=== PATIENT | male | born 1955 | race Caucasian/White ===

== ENCOUNTER 2025-01-01 12:38 | Outpatient (CLI) | payer OTHER, SELFPAY | END 2025-01-01 12:39 | disposition home or self-care (01) | LOC: AMB 01-03 13:25 | PROVIDERS: Visit Provider Internal Medicine | DX: S49.92XA Unspecified injury of left shoulder and upper arm, initial encounter (principal); V49.9XXA Car occupant (driver) (passenger) injured in unspecified traffic accident, initial encounter; Y92.410 Unspecified street and highway as the place of occurrence of the external cause | CPT/HCPCS: A0425; A0427 ==

== ENCOUNTER 2025-01-01 13:35 | Emergency (ER) | payer OTHER, SELFPAY ==
--- OUTSIDE RECORDS SUMMARY | 2024-11-16 08:08 | XMS_ITS | Encounter Summary ---
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 Name Role Phone Jadon Pelletier MD Unavailable Unavaila Armando Basurto MD Unavailable Jadon Rossi MD Unavailable Patricia Babb DIRECTOR [employer]AL[employer],[facility] Unavailable + Cornelia Torres DIRECTOR [employer]S,[facility] Primary Care Provider + Cecilia Crenshaw MD Unavailabl e Sal Rascon MD Unavailable [phone] Reason for Visit * Cardiac Rehab (Routine) - Authorized Specialty Diagnoses / Procedures Referred By Contac t Referred To Contact Cardiology Diagnoses ST elevation myocardial infarction involving left anterior descending (LAD) coronary artery (HCC) Josue Guerra MD [address] [place] [phone] Phone: tel: fax: [facility] [address] [place] [address] Phone: tel: fax: Referral ID Status Reason Start Date Expiration Date V isits Requested Visits Authorized [id number] Authorized 10/29/2024 11/28/2025 72 [id number] Encounter Details Date Type Department Care Team (Latest Contact Info) Description 11/16/2024 8:08 AM CDT - 11/16/2024 11:59 PM CDT Hospital Encounter [facility] [address] [place] [address] Josue Guerra MD [address] [place] [phone] Monitored, Cardiac Rehab Subj: Appointment Scheduled Discharge Disposition: Discharge Home Social History Tobacco Use Types Packs/Day Years Used Date Smoking Tobacco: Former Cigarettes 1 20 0 05/26/1980 - 05/26/2000 Smokeless Tobacco: Former Quit: 2003 Alcohol Use Standard Drinks/Week Comments No 0 (1 standard drink = 0.6 oz pur e alcohol) B1300 Health Literacy Answer Date Recor ded How often do you need to hav e someone help you when you read instructions, pamphlets, or other written material from your doctor or pharmacy? Never 03/17/2024 Vaxartities Answer Date Recorded In the past 12 months has e raksul, oil, or water Segment threatened to shut off services in your home? No 10/29/2024 Humiliation, Afraid, Rape, and Kick questionnair e Answer Date Recorded Within the last year, have y ou been afraid of your partner or ex-partner? No 03/17/2024 Within the last year, have y ou been humiliated or emotionally abused in other ways by your partner or ex-partner? No Within the last year, have y ou been kicked, hit, slapped, or otherwise physically hurt by your partner or ex-partner? No 03/17/2024 Within the last year, have y ou been raped or forced to have any kind of sexual activity by your partner or ex-partner? No 03/17/2024 Social Connection and Isolat ion Panel [NHANES] Answer Date Recorded In a typical week, how many times do you talk on the phone with family, friends, or neighbors? More than three times a week 03/17/2024 How often do you get togethe r with friends or relatives? More than three times a week 03/17/2024 How often do you attend chur ch or mormonism services? Never 03/17/2024 Do you belong to any clubs o r organizations such as religious groups, unions, fraternal or athletic groups, or school groups? No 03/17/2024 How often do you attend meet ings of the clubs or organizations you belong to? Never 03/17/2024 Are you , , di vorced, , never , or living with a partner? 03/17/2024 AUDIT-C Answer Date Recorded Q1: How often do you have a drink containing alcohol? Never 03/17/2024 Q2: How many drinks containi ng alcohol do you have on a typical day when you are drinking? Patient does not drink Q3: How often do you have si x or more drinks on one occasion? Never 03/17/2024 Overall Financial Resource Strain (CARDIA) Answe r Date Recorded How hard is it for you to pa y for the very basics like food, housing, medical care, and heating? Not very hard 03/17/2024 [facility] - Occupational Stress Questionnaire Answer Date Recorded Do you feel stress - tense, restless, nervous, or anxious, or unable to sleep at night because your mind is troubled all the time - these days? To some extent 03/17/2024 Exercise Vital Sign Answer Date Recorde d On average, how many days pe r week do you engage in moderate to strenuous exercise (like a brisk walk)? 1 day 03/17/2024 On average, how many minutes do you engage in exercise at this level? 30 min 03/17/2024 Hunger Vital Sign Answer Date Recorded Within the past 12 months, y ou worried that your food would run out before you got the money to buy more. Never true 10/30/19 25 Within the past 12 months, t he food you bought just didn't last and you didn't have money to get more. Never true 10/29/2024 PRAPARE - Transportation Answer Date Re corded In the past 12 months, has l ack of transportation kept you from medical appointments or from getting medications? No 12/25 In the past 12 months, has l ack of transportation kept you from meetings, work, or from getting things needed for daily living? No 01/17/2021 Housing Stability Vital Sign Answer Drake e Recorded In the last 12 months, was t here a time when you were not able to pay the mortgage or rent on time? No 10/29/2024 In the past 12 months, how m any times have you moved where you were living? 0 10/29/2024 At any time in the past 12 m [facility], were you homeless or living in a mcfp (including now)? No 10/29/2024 Housing Stability Answer Date Recorded In the last 12 months, was t here a time when you were not able to pay the mortgage or rent on time? No 10/29/2024 Number of Places Lived in the Last Year Not on f ile 10/29/2024 Number of Places Lived in the Last Year (Outpati ent) Not on file 10/29/2024 Number of Places Lived in the Last Year (Inpatie nt) Not on file 10/29/2024 Unstable Housing in the Last Year Not on file 10/29/2024 Depression (PHQ-9) Answer Date Recorded Last PHQ-9 Score 3 11/03/2024 Thoughts of self harm Not at all 11/03/2024 Pediatric Housing Stability Answer Date Recorded At any time in the past 12 m [facility], were you homeless or living in a mcfp (including now)? No 10/29/2024 In the past 12 months, how m any times have you moved where you were living? 0 10/29/2024 Housing Condition Worry Not on file 10/30/19 Intimate Partner Violence Answer Date R ecorded Are you in a relationship wh ere you are physically hurt, threatened and/or made to feel afraid? No 11/10/2024 Transportation Needs Answer Date Record ed In the past 12 months, has l ack of transportation kept you from medical appointments, meetings, work, or from getting medicines or things needed for daily living? No 10/29/2024 Caregiver Education and Work Answer Drake e Recorded High School Degree Not on file 03/17/2024 How often do you need to hav e someone help you when you read instructions, pamphlets, or other written material from your doctor or pharmacy? 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 Answer Date of Assessment Author No 10/29/2024 11:00 PM Mine Ibanez RN * Are you blind or do you have serious difficulty seeing, even when wearing glasses? Answer Date of Assessment Author No 10/29/2024 11:00 PM Mine Ibanez RN * Do you have serious difficulty walking or climbing stairs? Answer Date of Assessment Author No 10/29/2024 11:00 PM Mine Ibanez RN * Do you have difficulty dressing or bathing? Answer Date of Assessment Author No 10/29/2024 11:00 PM Mine Ibanez RN * Do you have difficulty doing errands alone such as visiting a doctor's office or shopping because of a physical, mental, or emotional condition? Answer Date of Assessment Author No 10/29/2024 11:00 PM Mine Ibanez RN documented as of this encounter Mental Status * Do you have trouble concentrating, remembering, or making decisions because of a physical, mental, or emotional condition? Answer Entry Date Author No 10/29/2024 11:00 PM Mine Ibanez RN documented in this encounter Medications at Time of Discharge aspirin (CHILDREN'S ASPIRIN) 81 mg oral Tablet, ChewableIndication s:NSTEMI (non-ST elevated myocardial infarction) (HCC) Chew and Swallow 1 Tablet (81 mg) by mouth once daily. 0 01/11/2021 atorvastatin (LIPITOR) 80 mg oral TabletIndications: ST elevation myocardial infarction involving left anterior descending (LAD) coronary artery (HCC) Take 1 Tablet (80 mg) by mouth at bedtime. 90 Tablet 3 10/31/2024 12:46 PM CDT 10/31/2024 carvediloL (COREG) 6.25 mg oral TabletIndications: ST elevation myocardial infarction involving left anterior descending (LAD) coronary artery (HCC) Take 1 Tablet (6.25 mg) by mouth in the morning and 1 Tablet (6.25 mg) in the evening. 11/16/2024 6 cetirizine (AKA: ZYRTEC) 10 mg oral Tablet Take 1 Tablet (10 mg) by mouth in the morning. cholecalciferol (VITAMIN D3) 5,000 unit oral TabletIndications: Vitamin D deficiency Take 1 Tablet (5,000 Units) by mouth in the morning. 07/23/2024 fluticasone propionate (FLOVENT HFA) 110 mcg/actuation inhalation HFA Aerosol InhalerIndications :Mild persistent asthma without complication (HCC) 2 Puffs by inhalation route in the morning and 2 Puffs in the evening. 12 g 11 11/10/2024 6 nitroglycerin (NITROSTAT) 0.4 mg sublingual Tablet, SublingualIndicati ons:NSTEMI (non-ST elevated myocardial infarction) (HCC) DISSOLVE 1 TABLET UNDER TONGUE NEEDED FOR CHEST PAIN MAY REPEAT EVERY 5 MINUTES FOR A MAXIMUM OF 3 DOSES 25 Tablet 2 07/09/2024 other (unlisted) Cellergize by Life Wave PAP MACHINEIndications :Obstructive sleep apnea syndrome,Sleep apnea, unspecified type,Daytime sleepiness Equipment Prescribed: Autopap, 5-15 cm H20. Estimated Length of Need: 99 months (99 = Lifetime). May change the size or style of mask, headgear, or spacers to help patient comfort and compliance. 1 Each 12/10/2022 PARoxetine (PAXIL) 10 mg oral TabletIndications: MARY (generalized anxiety disorder) Take 1 Tablet (10 mg) by mouth in the morning. 90 Tablet 3 03/24/2024 5 prasugreL HCl (EFFIENT) 10 mg oral TabletIndications: ST elevation myocardial infarction involving left anterior descending (LAD) coronary artery (HCC) Take 1 Tablet (10 mg) by mouth in the morning. 90 Tablet 3 10/31/2024 12:46 PM CDT 11/01/2024 6 empagliflozin (JARDIANCE) 10 mg oral TabletIndications: ST elevation myocardial infarction involving left anterior descending (LAD) coronary artery (HCC) Take 1 Tablet (10 mg) by mouth in the morning. 90 Tablet 3 11/01/2024 5 fluticasone furoate (ARNUITY ELLIPTA) 100 mcg/actuation inhalation Disk with DeviceIndications: Mild persistent asthma without complication (HCC) 1 Inhalation by inhalation route in the morning. 90 Each 09/02/2024 5 pantoprazole (PROTONIX) 40 mg oral Tablet, Delayed Release (E.C.)Indications: ST elevation myocardial infarction involving left anterior descending (LAD) coronary artery (HCC) Take 1 Tablet (40 mg) by mouth at bedtime. 60 Tablet 10/31/2024 12:46 PM CDT 10/31/2024 5 documented as of this encounter Miscellaneous Notes * Multidisciplinary Note - Enriqueta Villarreal - 11/16/2024 9:35 AM CDT Post-Session Comments:Supervising Physician: Lev Ballard MD.Per patient, no medication changes since last visit. Per patient, medications taken as prescribed. RESPONSE: Patient tolerated exercise session well with no complaints. RESPONSE: HR,BS and BP responses to exercise were appropriate. RHYTHM: Sinus rhythm with isolated PVC's, no ST changes noted. UNITS CHARGED: Exercise session - 4 (60 minutes).PRITIKIN EDUCATION: HRT Managing Heart Disease (60 minutes) UNITS CHARGED: Education - 1. documented in this encounter Plan of Treatment Upcoming Encounters Date Type Department Care Team (Late st Contact Info) Description 01/04/2025 8:30 AM CDT Appointment [facility] [address] [place], [place] [id number] Josue Guerra MD [address] [place] [address] Monitored, Cardiac Rehab Subj: Appointment Scheduled 01/04/2025 9:30 AM CDT Appointment [facility] [address] [place] [address] Josue Guerra MD [address] [place] [address] Subj: Appointment Scheduled 01/06/2025 8:30 AM CDT Appointment [facility] [address] [facility] [place] [address] Josue Guerra MD [address] [facility] [address] Monitored, Cardiac Rehab Subj: Appointment Scheduled 01/06/2025 9:30 AM CDT Appointment [facility] [address] [place] [address] Josue Guerra MD [address] [place] [address] Subj: Appointment Scheduled 01/11/2025 8:30 AM CDT Appointment [facility] [address] [place] [address] Josue Guerra MD [address] [place] [address] Monitored, Cardiac Rehab Subj: Appointment Scheduled 01/11/2025 9:30 AM CDT Appointment [facility] [address] [place] [address] Josue Guerra MD [address] [place] [address] Subj: Appointment Scheduled 01/13/2025 8:30 AM CDT Appointment [facility] [address] [facility] [place] [address] Josue Guerra MD [address] [place] [address] Monitored, Cardiac Rehab Subj: Appointment Scheduled 01/13/2025 9:30 AM CDT Appointment [facility] [address] [place] [address], [place] [address] [place] [address] [place] [address], [place] [address] Subj: Appointment Scheduled 01/18/2025 8:30 AM CDT Appointment [facility] [address] [place] [address], [place] [address] [place] [address] [place] [address], [place] [address] Monitored, Cardiac Rehab Subj: Appointment Scheduled 01/18/2025 9:30 AM CDT Appointment [facility] [address] [place] [address], [place] [address] [place] [address] [place] [address], [place] [address] Subj: Appointment Scheduled 01/20/2025 8:30 AM CDT Appointment [facility] [address] [place] [address], [place] [address] [place] [address] [place] [address], [place] [address] Monitored, Cardiac Rehab Subj: Appointment Scheduled 01/20/2025 9:30 AM CDT Appointment [facility] [address] [place] [address] Josue Guerra MD [address] [place] [address] Subj: Appointment Scheduled 01/25/2025 8:30 AM CDT Appointment [facility] [address] [place] [address], [place] [address] Josue Guerra MD [address] [place] [address] Monitored, Cardiac Rehab Subj: Appointment Scheduled 01/25/2025 9:30 AM CDT Appointment [facility] [address] [place] [address], [place] [address] Josue Guerra MD [address] [place] [address] Subj: Appointment Scheduled 01/27/2025 8:30 AM CDT Appointment [facility] [address] [place] [address], [place] [address] Josue Guerra MD [address] [place] [address] Monitored, Cardiac Rehab Subj: Appointment Scheduled 01/27/2025 9:30 AM CDT Appointment [facility] [address] [place] [address], [place] [address] Josue Guerra MD [address] [place] [address] Subj: Appointment Scheduled 02/01/2025 8:30 AM CDT Appointment [facility] [address] [facility] [place] [address] Josue Guerra MD [address] [place] [address] Monitored, Cardiac Rehab Subj: Appointment Scheduled 02/01/2025 9:30 AM CDT Appointment [facility] [address] [place] [address], [place] [address] Josue Guerra MD [address] [place] [address] Subj: Appointment Scheduled 02/03/2025 8:30 AM CDT Appointment [facility] [address] [place] [address], [place] [address] Josue Guerra MD [address] [place] [address] Monitored, Cardiac Rehab Subj: Appointment Scheduled 02/03/2025 9:30 AM CDT Appointment [facility] [address] [place] [address], [place] [address] Josue Guerra MD [address] [place] [address] Subj: Appointment Scheduled 02/08/2025 8:30 AM CDT Appointment [facility] [address] [place], [place] [address] [place] [address] Josue Guerra MD [address] [place] [address] [phone] Monitored, Cardiac Rehab Subj: Appointment Scheduled 02/08/2025 9:30 AM CDT Appointment [facility] [address] [place] [address], [place] [address] Josue Guerra MD [address] [place] [address] Subj: Appointment Scheduled 02/10/2025 8:30 AM CDT Appointment [facility] [address] [place] [address], [place] [address] Josue Guerra MD [address] [place] [address] Monitored, Cardiac Rehab Subj: Appointment Scheduled 02/10/2025 9:30 AM CDT Appointment [facility] [address] [place] [address], [place] [address] Josue Guerra MD [address] [place] [address] Subj: Appointment Scheduled 02/15/2025 8:30 AM CDT Appointment [facility] [address] [place] [address], [place] [address] Josue Guerra MD [address] [place] [address] Monitored, Cardiac Rehab Subj: Appointment Scheduled 02/15/2025 9:30 AM CDT Appointment [facility] [address] [place] [address] Josue Guerra MD [address] [place] [address] Subj: Appointment Scheduled 02/17/2025 8:30 AM CDT Appointment [facility] [address] [place] [address], [place] [address] Josue Guerra MD [address] [place] [address] Monitored, Cardiac Rehab Subj: Appointment Scheduled 02/17/2025 9:30 AM CDT Appointment [facility] [address] [place] [address], [place] [address] Josue Guerra MD [address] [place] [address] Subj: Appointment Scheduled 02/22/2025 8:30 AM CDT Appointment [facility] [address] [place] [address], [place] [address] Josue Guerra MD [address] [place] [address] Monitored, Cardiac Rehab Subj: Appointment Scheduled 02/22/2025 9:30 AM CDT Appointment [facility] [address] [place] [address], [place] [address] Josue Guerra MD [address] [place] [address] Subj: Appointment Scheduled 02/24/2025 8:30 AM CDT Appointment [facility] [address] [place] [address] Josue Guerra MD [address] [place] [address] Monitored, Cardiac Rehab Subj: Appointment Scheduled 02/24/2025 9:30 AM CDT Appointment [facility] [address] [place] [address], [place] [address] Josue Guerra MD [address] [place] [address] Subj: Appointment Scheduled 03/01/2025 8:30 AM CDT Appointment [facility] [address] [place] [address] Josue Guerra MD [address] [place] [address] Monitored, Cardiac Rehab Subj: Appointment Scheduled 03/01/2025 9:30 AM CDT Appointment [facility] [address] [place] [address] Josue Guerra MD [address] [place] [address] Subj: Appointment Scheduled 03/03/2025 8:30 AM CDT Appointment [facility] [address] [place] [address], [place] [address] Josue Guerra MD [address] [place] [address] Monitored, Cardiac Rehab Subj: Appointment Scheduled 03/03/2025 9:30 AM CDT Appointment [facility] [address] [place] [address] [place] [address] [place] [address], [place] [address] Subj: Appointment Scheduled 03/08/2025 8:30 AM CDT Appointment [facility] [address] [place] [address], [place] [address] [place] [address] [place] [address], [place] [address] Monitored, Cardiac Rehab Subj: Appointment Scheduled 03/08/2025 9:30 AM CDT Appointment [facility] [address] [place] [address], [place] [address] Josue Guerra MD [address] [place] [address] Subj: Appointment Scheduled 03/10/2025 8:30 AM CDT Appointment [facility] [address] [place] [address], [place] [address] Josue Guerra MD [address] [place] [address] Monitored, Cardiac Rehab Subj: Appointment Scheduled 03/10/2025 9:30 AM CDT Appointment [facility] [address] [place] [address], [place] [address] Josue Guerra MD [address] [place] [address] Subj: Appointment Scheduled 03/15/2025 8:30 AM CDT Appointment [facility] [address] [place] [address] Josue Guerra MD [address] [place] [address] Monitored, Cardiac Rehab Subj: Appointment Scheduled 03/15/2025 9:30 AM CDT Appointment [facility] [address] [place] [address] Josue Guerra MD [address] [place] [address] Subj: Appointment Scheduled documented as of this encounter Procedures Procedure Name Priority Date/Time Associated Diagnosis Comments GLUCOSE, POC Routine 11/16/2024 9:33 AM CDT GLUCOSE, POC Routine 11/16/2024 8:33 AM CDT documented in this encounter Results * (ABNORMAL) GLUCOSE, POC (11/16/2024 9:33 AM CDT) Only the most recent of2 resultswithin the time period is included. Glucose by Meter 117(H) 70 - 100 mg/dL 11/16/2024 9:45 AM CDT [facility] Comment:Blood, Capil Blood CAPILLARY BLOOD / Unknown 11/16/2024 9:33 AM CDT 11/16/2024 9:45 AM CDT Josue Guerra MD LAB POINT OF CA RE TEST DOCKED DEVICE UNSOLICITED RESULTS Final Result Performing Organization Address [facility]/State/ZIP Co de Phone Number 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 Machine Operator Insulation Relationship Specialty Start Date End Date Cornelia Torres APRN,SILVERER [address] [place] [phone] PCP - General Nurse Practitioner Family 11/14/21 Jadon Pelletier MD 06/23/[address] [place] 06/23/17 Jadon Rossi MD [address] [place] [address] Internal Medicine Cardiovascular Disease 01/11/21 Patricia Babb APRN,SILVERER [address] [place] [address] Heart Failure Team Nurse Practitioner 03/13/21 Cecilia Crenshaw MD [address] [place] [address] Internal Medicine - Nephrology 07/23/24 Sal Rascon MD [address] [place] [address] Cardiology-Interventional 10/31/24 documented as of this encounter Additional Source Comments PLEASE NOTE: Replies to this message will not be received.[facility] and Count Includes [facility]
--- OUTSIDE RECORDS SUMMARY | 2024-11-18 06:45 | XMS_ITS | Encounter Summary ---
Author Organization [facility] Address [address] [place] [id number] Care Team Providers Care Hearing Care Professional Name Role Phone Jadon Pelletier MD Unavailable Unavaila Armando Basurto MD Unavailable Jadon Rossi MD Unavailable [phone] Patricia Babb ASSISTANT AUTO CENTER MANAGER,[facility] Unavailable + Cornelia Torres ASSISTANT AUTO CENTER MANAGER,[facility] Primary Care Provider + Cecilia Crenshaw MD Unavailabl e Sal Rascon MD Unavailable [phone] Reason for Visit * Cardiac Rehab (Routine) - Authorized Specialty Diagnoses / Procedures Referred By Contac t Referred To Contact Cardiology Diagnoses ST elevation myocardial infarction involving left anterior descending (LAD) coronary artery (HCC) Josue Guerra MD [address] [place] [phone] Phone: tel: fax: [facility] [address] [place] [address] Phone: tel: fax: Referral ID Status Reason Start Date Expiration Date V isits Requested Visits Authorized [id number] Authorized 10/29/2024 11/28/2025 72 72 Encounter Details Date Type Department Care Team (Latest Contact Info) Description 11/18/2024 6:45 AM CDT - 11/18/2024 11:59 PM CDT Hospital Encounter [facility] [address] [place] [address] Josue Guerra MD [address] [place] [phone] Monitored, Cardiac Rehab Subj: Appointment Scheduled Discharge [...] from your doctor or pharmacy? Never 03/17/2024 [employer] Answer Date Recorded In the past 12 months has e [employer], oil, or water [employer] threatened to shut off services in your [...] often do you attend chur ch or mandaeism services? Never 03/17/2024 Do you belong to any clubs o r organizations such as religion groups, unions, fraternal or athletic groups, or [...] care, and heating? Not very hard 03/17/2024 [facility] - Occupational [...] any time in the past 12 m [facility], were you homeless or living in a care home (including now)? No 10/29/2024 Housing Stability Answer [...] any time in the past 12 m [facility], were you homeless or living in a care home (including now)? 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 Per patient, medications taken as prescribed. RESPONSE: Patient tolerated exercise session well with no complaints. RESPONSE: HR and BP responses to exercise were appropriate. RHYTHM: Sinus rhythm with no ectopy, no ST changes noted. UNITS CHARGED: Exercise session - 4 (60 minutes).PRITIKIN EDUCATION: CS12 One-Pot Wonders (60 minutes) UNITS CHARGED: Education - 1. documented in this encounter Plan of Treatment Upcoming Encounters Date Type Department Care Team (Late st Contact Info) Description 01/04/2025 8:30 AM CDT Appointment [facility] [address] [facility] [place] [address] Josue Guerra MD [address] [place] [phone] Monitored, Cardiac Rehab Subj: Appointment Scheduled 01/04/2025 9:30 AM CDT Appointment [facility] [address] [place] [address] Josue Guerra MD [address] [place] [address] Subj: Appointment Scheduled 01/06/2025 8:30 AM CDT Appointment [facility] [address] [place] [address] Josue Guerra MD [address] [place] [address] Monitored, Cardiac Rehab Subj: Appointment Scheduled 01/06/2025 9:30 AM CDT Appointment [facility] [address] [place] [address], [place] [address] [place] [address] [place] [address], [place] [address] Subj: Appointment Scheduled 01/11/2025 8:30 AM CDT Appointment [facility] [address] [place] [address], [place] [address] Josue Guerra MD [address] [place] [address] Monitored, Cardiac Rehab Subj: Appointment Scheduled 01/11/2025 9:30 AM CDT Appointment [facility] [address] [place] [address], [place] [address] Josue Guerra MD [address] [place] [address] Subj: Appointment Scheduled 01/13/2025 8:30 AM CDT Appointment [facility] [address] [place] [address], [place] [address] Josue Guerra MD [address] [place] [address] Monitored, Cardiac Rehab Subj: Appointment Scheduled 01/13/2025 9:30 AM CDT Appointment [facility] [address] [place] [address], [place] [address] [place] [address] [place] [address], [place] [address] Subj: Appointment Scheduled 01/18/2025 8:30 AM CDT Appointment [facility] [address] [place] [address], [place] [address] [place] [address] [place] [address], [place] [address] Monitored, Cardiac Rehab Subj: Appointment Scheduled 01/18/2025 9:30 AM CDT Appointment [facility] [address] [place] [address], [place] [address] Josue Guerra MD [address] [place] [address] Subj: Appointment Scheduled 01/20/2025 8:30 AM CDT Appointment [facility] [address] [place] [address], [place] [address] Josue Guerra MD [address] [place] [address] Monitored, Cardiac Rehab Subj: Appointment Scheduled 01/20/2025 9:30 AM CDT Appointment [facility] [address] [place] [address] Josue Guerra MD [address] [place] [address] Subj: Appointment Scheduled 01/25/2025 8:30 AM CDT Appointment [facility] [address] [place] [address], [place] [address] Josue Guerra MD [address] [place] [address] Monitored, Cardiac Rehab Subj: Appointment Scheduled 01/25/2025 9:30 AM CDT Appointment [facility] [address] [place] [address], [place] [address] Josue Guerra MD [address] [place] [address] Subj: Appointment Scheduled 01/27/2025 8:30 AM CDT Appointment [facility] [address] [place] [address], [place] [address] Josue Guerra MD [address] [place] [address] Monitored, Cardiac Rehab Subj: Appointment Scheduled 01/27/2025 9:30 AM CDT Appointment [facility] [address] [place] [address], [place] [address] Josue Guerra MD [address] [place] [address] Subj: Appointment Scheduled 02/01/2025 8:30 AM CDT Appointment [facility] [address] [place] [address] Josue Guerra MD [address] [address] Monitored, Cardiac Rehab Subj: Appointment Scheduled 02/01/2025 9:30 AM CDT Appointment [facility] [address] [facility] [place] [address] Josue Guerra MD [address] [place] [address] Subj: Appointment Scheduled 02/03/2025 8:30 AM CDT Appointment [facility] [address] [facility] [place] [address] Josue Guerra MD [address] [place] [address] Monitored, Cardiac Rehab Subj: Appointment Scheduled 02/03/2025 9:30 AM CDT Appointment [facility] [address] [facility] [place] [address] Josue Guerra MD [address] [facility] [place] [address] Subj: Appointment Scheduled 02/08/2025 8:30 AM CDT Appointment [facility] [address] [facility] [place] [address] Josue Guerra MD [address] [place] [address] Monitored, Cardiac Rehab Subj: Appointment Scheduled 02/08/2025 9:30 AM CDT Appointment [facility] [address] [place] [address], [place] [address] [place] [address] [place] [address], [place] [address] Subj: Appointment Scheduled 02/10/2025 8:30 AM CDT Appointment [facility] [address] [place] [address], [place] [address] [place] [address] [place] [address], [place] [address] Monitored, Cardiac Rehab Subj: Appointment Scheduled 02/10/2025 9:30 AM CDT Appointment [facility] [address] [place] [address], [place] [address] [place] [address] [place] [address], [place] [address] Subj: Appointment Scheduled 02/15/2025 8:30 AM CDT Appointment [facility] [address] [place] [address], [place] [address] [place] [address] [place] [address], [place] [address] Monitored, Cardiac Rehab Subj: Appointment Scheduled 02/15/2025 9:30 AM CDT Appointment [facility] [address] [place] [address], [place] [address] Josue Guerra MD [address] [place] [address] Subj: Appointment Scheduled 02/17/2025 8:30 AM CDT Appointment [facility] [address] [place] [address], [place] [address] Josue Guerra MD [address] [place] [address] Monitored, Cardiac Rehab Subj: Appointment Scheduled 02/17/2025 9:30 AM CDT Appointment [facility] [address] [place] [address], [place] [address] Josue Guerra MD [address] [place] [address] Subj: Appointment Scheduled 02/22/2025 8:30 AM CDT Appointment [facility] [address] [place] [address], [place] [address] Josue Guerra MD [address] [place] [address] Monitored, Cardiac Rehab Subj: Appointment Scheduled 02/22/2025 9:30 AM CDT Appointment [facility] [address] [place] [address], [place] [address] Josue Guerra MD [address] [place] [address] Subj: Appointment Scheduled 02/24/2025 8:30 AM CDT Appointment [facility] [address] [facility] [place] [address] Josue Guerra MD [address] [facility] [place] [address] Monitored, Cardiac Rehab Subj: Appointment Scheduled 02/24/2025 9:30 AM CDT Appointment [facility] [address] [place] [address] Josue Guerra MD [address] [place] [address] Subj: Appointment Scheduled 03/01/2025 8:30 AM CDT Appointment [facility] [address] [place] [address] Josue Guerra MD [address] [place] [address] Monitored, Cardiac Rehab Subj: Appointment Scheduled 03/01/2025 9:30 AM CDT Appointment [facility] [address] [facility] [place] [address] Josue Guerra MD [address] [place] [address] Subj: Appointment Scheduled 03/03/2025 8:30 AM CDT Appointment [facility] [address] [facility] [place] [address] Josue Guerra MD [address] [place] [address] Monitored, Cardiac Rehab Subj: Appointment Scheduled 03/03/2025 9:30 AM CDT Appointment [facility] [address] [place] [address] Josue Guerra MD [address] [place] [address] Subj: Appointment Scheduled 03/08/2025 8:30 AM CDT Appointment [facility] [address] [place] [address], [place] [address] Josue Guerra MD [address] [place] [address] Monitored, Cardiac Rehab Subj: Appointment Scheduled 03/08/2025 9:30 AM CDT Appointment [facility] [address] [place] [address], [place] [address] Josue Guerra MD [address] [place] [address] Subj: Appointment Scheduled 03/10/2025 8:30 AM CDT Appointment [facility] [address] [place] [address], [place] [address] Josue Guerra MD [address] [place] [address] Monitored, Cardiac Rehab Subj: Appointment Scheduled 03/10/2025 9:30 AM CDT Appointment [facility] [address] [place] [address], [place] [id number] Josue Guerra MD [address] [place] [address] Subj: Appointment Scheduled 03/15/2025 8:30 AM CDT Appointment [facility] [address] [place] [address] Josue Guerra MD [address] [place] [phone] Monitored, Cardiac Rehab Subj: Appointment Scheduled 03/15/2025 9:30 AM CDT Appointment [facility] [address] [place], [place] [id number] Josue Guerra MD [address] [place] [address] Subj: Appointment Scheduled documented as of this encounter Procedures Procedure Name Priority Date/Time Associated Diagnosis Comments GLUCOSE, POC Routine 11/18/2024 7:59 AM CDT GLUCOSE, POC Routine 11/18/2024 6:54 AM CDT documented in this encounter Results * (ABNORMAL) GLUCOSE, POC (11/18/2024 7:59 AM CDT) Only the most recent of2 resultswithin the time period is included. Glucose by Meter 118(H) 70 - 100 mg/dL 11/18/2024 8:11 AM CDT [facility] Comment:Blood, Capil Blood CAPILLARY BLOOD / Unknown 11/18/2024 7:59 AM CDT 11/18/2024 8:11 AM CDT us Josue Guerra MD LAB POINT OF CA RE TEST DOCKED DEVICE UNSOLICITED RESULTS Final Result [facility] [address] [place] [address], documented in this encounter Visit Diagnoses Not on filedocumented in this encounter Care Teams Hearing Care Professional Relationship Specialty Start Date End Date Cornelia Torres APRN,MANAGER HV[employer] [address] [place] [phone] PCP - General Nurse Practitioner Family 11/14/21 Jadon Pelletier MD 06/23/17 Armando Restrepo MD [place] 06/23/17 Jadon Rossi MD [address] [place] [address] Internal Medicine Cardiovascular Disease 01/11/21 Patricia Babb APRN,MANAGER HV[employer] [address] [place] [address] Heart Failure Team Nurse Practitioner 03/13/21 Cecilia Crenshaw MD [address] [place] [address] Internal Medicine - Nephrology 07/23/24 Sal Rascon MD [address] [place] [address] Cardiology-Interventional 10/31/24 documented as of this encounter Additional Source Comments PLEASE NOTE: Replies to this message will not be received.[facility]
--- OUTSIDE RECORDS SUMMARY | 2024-11-23 07:40 | XMS_ITS | Encounter Summary ---
Author Organization [facility] Address [address] [place] [id number] Care Team Providers Care Senior Director Finance Name Role Phone Jadon Pelletier MD Unavailable Unavaila Armando Basurto MD Unavailable Jadon Rossi MD Unavailable Patricia Babb [employer],[facility] Unavailable + Cornelia Torres [employer],[facility] Primary Care Provider + Cecilia Crenshaw MD Unavailabl e Sal Rascon MD Unavailable [phone] Reason for Visit * Cardiac Rehab (Routine) - Authorized Specialty Diagnoses / Procedures Referred By Contac t Referred To Contact Cardiology Diagnoses ST elevation myocardial infarction involving left anterior descending (LAD) coronary artery (HCC) Josue Guerra MD [address] [place] [phone] Phone: tel: fax: [facility] [address] [place] [address] Phone: tel: fax: Referral ID Status Reason Start Date Expiration Date V isits Requested Visits Authorized [id number] Authorized 10/29/2024 11/28/2025 72 72 Encounter Details Date Type Department Care Team (Latest Contact Info) Description 11/23/2024 7:40 AM CDT - 11/23/2024 11:59 PM CDT Hospital Encounter [facility] [address] [place] [address] Josue Guerra MD [address] [place] [address] Monitored, Cardiac Rehab Subj: Questionnaire Submission Discharge Disposition: Discharge Home Social History Tobacco [...] from your doctor or pharmacy? Never 03/17/2024 5to1ities Answer Date Recorded In the past 12 months has e [employer], oil, or water [employer] threatened to shut off services in your [...] often do you attend chur ch or pentecostalism services? Never 03/17/2024 Do you belong to any clubs o r organizations such as synagogue groups, unions, fraternal or athletic groups, or [...] care, and heating? Not very hard 03/17/2024 [facility] - Occupational Stress [...] time in the past 12 m [facility], were you homeless or living in a fdc (including now)? No 10/29/2024 Housing Stability Answer [...] time in the past 12 m [facility], were you homeless or living in a fdc (including now)? 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 90 Each 09/02/2024 pantoprazole (PROTONIX) 40 mg oral Tablet, Delayed Release (E.C.)Indications: ST elevation myocardial infarction involving left anterior descending (LAD) coronary artery (HCC) Take 1 Tablet (40 mg) by mouth at bedtime. 60 Tablet 10/31/2024 12:46 PM CDT 10/31/2024 5 documented as of this encounter Miscellaneous Notes * Multidisciplinary Note - Marge Hazel - 11/23/2024 9:37 AM CDT Post-Session Comments:Supervising Physician: Cam Amaya MD.Per patient, no medication changes since last visit. Per patient, medications taken as prescribed. RESPONSE: Patient tolerated exercise session well with no complaints. RESPONSE: HR and BP responses to exercise were appropriate. RHYTHM: Sinus rhythm with no ectopy, no ST changes noted. UNITS CHARGED: Exercise session - 4 (60 minutes).PRITIKIN EDUCATION: NW2 Label Reading (60 Minutes) UNITS CHARGED: Education -1 documented in this encounter Plan of Treatment Upcoming Encounters Date Type Department Care Team (Late st Contact Info) Description 01/04/2025 8:30 AM CDT Appointment [facility] [address] [place], [place] [id number] Josue Guerra MD [address] [place] [address] Monitored, Cardiac Rehab Subj: Appointment Scheduled 01/04/2025 9:30 AM CDT Appointment [facility] [address] [place], [place] [id number] Josue Guerra MD [address] [place] [address] Subj: Appointment Scheduled 01/06/2025 8:30 AM CDT Appointment [facility] [address] [place] [address] Josue Guerra MD [address] [facility] [place] [address] Monitored, Cardiac Rehab Subj: Appointment Scheduled 01/06/2025 9:30 AM CDT Appointment [facility] [address] [facility] [place] [address] Josue Guerra MD [address] [place] [address] Subj: Appointment Scheduled 01/11/2025 8:30 AM CDT Appointment [facility] [address] [facility] [place] [address] Josue Guerra MD [address] [place] [address] Monitored, Cardiac Rehab Subj: Appointment Scheduled 01/11/2025 9:30 AM CDT Appointment [facility] [address] [facility] [place] [address] Josue Guerra MD [address] [place] [address] Subj: Appointment Scheduled 01/13/2025 8:30 AM CDT Appointment [facility] [address] [place], [place] [address] [place] [address] Josue Guerra MD [address] [place] [address] Monitored, Cardiac Rehab Subj: Appointment Scheduled 01/13/2025 9:30 AM CDT Appointment [facility] [address] [place] [address] Josue Guerra MD [address] [place] [address] Subj: Appointment Scheduled 01/18/2025 8:30 AM CDT Appointment [facility] [address] [place] [address], [place] [address] [place] [address] [place] [address], [place] [address] Monitored, Cardiac Rehab Subj: Appointment Scheduled 01/18/2025 9:30 AM CDT Appointment [facility] [address] [place] [address], [place] [address] Josue Guerra MD [address] [place] [address] Subj: Appointment Scheduled 01/20/2025 8:30 AM CDT Appointment [facility] [address] [place] [address], [place] [address] Josue Guerra MD [address] [place] [address] Monitored, Cardiac Rehab Subj: Appointment Scheduled 01/20/2025 9:30 AM CDT Appointment [facility] [address] [place] [address] Josue Guerra MD [address] [place] [address] Subj: Appointment Scheduled 01/25/2025 8:30 AM CDT Appointment [facility] [address] [place] [address], [place] [address] [place] [address] [place] [address], [place] [address] Monitored, Cardiac Rehab Subj: Appointment Scheduled 01/25/2025 9:30 AM CDT Appointment [facility] [address] [place] [address], [place] [address] [place] [address] [place] [address], [place] [address] Subj: Appointment Scheduled 01/27/2025 8:30 AM CDT Appointment [facility] [address] [place] [address], [place] [address] Josue Guerra MD [address] [place] [address] Monitored, Cardiac Rehab Subj: Appointment Scheduled 01/27/2025 9:30 AM CDT Appointment [facility] [address] [place] [address], [place] [address] Josue Guerra MD [address] [place] [address] Subj: Appointment Scheduled 02/01/2025 8:30 AM CDT Appointment [facility] [address] [place] [address] Josue Guerra MD [address] [place] [address] Monitored, Cardiac Rehab Subj: Appointment Scheduled 02/01/2025 9:30 AM CDT Appointment [facility] [address] [place] [address] Josue Guerra MD [address] [place] [address] Subj: Appointment Scheduled 02/03/2025 8:30 AM CDT Appointment [facility] [address] [place] [address], [place] [address] Josue Guerra MD [address] [place] [address] Monitored, Cardiac Rehab Subj: Appointment Scheduled 02/03/2025 9:30 AM CDT Appointment [facility] [address] [place] [address], [place] [address] Josue Guerra MD [address] [place] [address] Subj: Appointment Scheduled 02/08/2025 8:30 AM CDT Appointment [facility] [address] [place] [address], [place] [address] Josue Guerra MD [address] [place] [address] Monitored, Cardiac Rehab Subj: Appointment Scheduled 02/08/2025 9:30 AM CDT Appointment [facility] [address] [place] [address] Josue Guerra MD [address] [place] [address] Subj: Appointment Scheduled 02/10/2025 8:30 AM CDT Appointment [facility] [address] [place] [address], [place] [address] [place] [address] [place] [address], [place] [address] Monitored, Cardiac Rehab Subj: Appointment Scheduled 02/10/2025 9:30 AM CDT Appointment [facility] [address] [place] [address], [place] [address] Josue Guerra MD [address] [place] [address] Subj: Appointment Scheduled 02/15/2025 8:30 AM CDT Appointment [facility] [address] [place] [address], [place] [address] Josue Guerra MD [address] [place] [address] Monitored, Cardiac Rehab Subj: Appointment Scheduled 02/15/2025 9:30 AM CDT Appointment [facility] [address] [place] [address], [place] [address] Josue Guerra MD [address] [place] [address] Subj: Appointment Scheduled 02/17/2025 8:30 AM CDT Appointment [facility] [address] [place] [address], [place] [address] Josue Guerra MD [address] [place] [address] Monitored, Cardiac Rehab Subj: Appointment Scheduled 02/17/2025 9:30 AM CDT Appointment [facility] [address] [place] [address], [place] [address] Josue Guerra MD [address] [place] [address] Subj: Appointment Scheduled 02/22/2025 8:30 AM CDT Appointment [facility] [address] [place] [address], [place] [address] Josue Guerra MD [address] [place] [address] Monitored, Cardiac Rehab Subj: Appointment Scheduled 02/22/2025 9:30 AM CDT Appointment [facility] [address] [place] [address], [place] [address] Josue Guerra MD [address] [place] [address] Subj: Appointment Scheduled 02/24/2025 8:30 AM CDT Appointment [facility] [address] [place] [address] Josue Guerra MD [address] [place] [address] Monitored, Cardiac Rehab Subj: Appointment Scheduled 02/24/2025 9:30 AM CDT Appointment [facility] [address] [place] [address], [place] [address] Josue Guerra MD [address] [place] [address] Subj: Appointment Scheduled 03/01/2025 8:30 AM CDT Appointment [facility] [address] [place] [address], [place] [address] [place] [address] [place] [address], [place] [address] Monitored, Cardiac Rehab Subj: Appointment Scheduled 03/01/2025 9:30 AM CDT Appointment [facility] [address] [place] [address], [place] [address] Josue Guerra MD [address] [place] [address] Subj: Appointment Scheduled 03/03/2025 8:30 AM CDT Appointment [facility] [address] [place] [address], [place] [address] Josue Guerra MD [address] [place] [address] Monitored, Cardiac Rehab Subj: Appointment Scheduled 03/03/2025 9:30 AM CDT Appointment [facility] [address] [place] [address] Josue Guerra MD [address] [place] [address] Subj: Appointment Scheduled 03/08/2025 8:30 AM CDT Appointment [facility] [address] [place] [address] Josue Guerra MD [address] [place] [address] Monitored, Cardiac Rehab Subj: Appointment Scheduled 03/08/2025 9:30 AM CDT Appointment [facility] [address] [place] [address] Josue Guerra MD [address] [place] [address] Subj: Appointment Scheduled 03/10/2025 8:30 AM CDT Appointment [facility] [address] [place] [address] Josue Guerra MD [address] [place] [address] Monitored, Cardiac Rehab Subj: Appointment Scheduled 03/10/2025 9:30 AM CDT Appointment [facility] [address] [place] [address] Josue Guerra MD [address] [place] [address] Subj: Appointment Scheduled 03/15/2025 8:30 AM CDT Appointment [facility] [address] [facility], [place] [id number] Josue Guerra MD [address] [place] [address] Monitored, Cardiac Rehab Subj: Appointment Scheduled 03/15/2025 9:30 AM CDT Appointment [facility] [address] [place] [address] Josue Guerra MD [address] [place] [address] Subj: Appointment Scheduled documented as of this encounter Procedures Procedure Name Priority Date/Time Associated Diagnosis Comments GLUCOSE, POC Routine 11/23/2024 9:31 AM CDT GLUCOSE, POC Routine 11/23/2024 8:31 AM CDT documented in this encounter Results * (ABNORMAL) GLUCOSE, POC (11/23/2024 9:31 AM CDT) Only the most recent of2 resultswithin the time period is included. Glucose by Meter 116(H) 70 - 100 mg/dL 11/23/2024 9:42 AM CDT [facility] Comment:Blood, Capil Blood CAPILLARY BLOOD / Unknown 11/23/2024 9:31 AM CDT 11/23/2024 9:42 AM CDT Josue Guerra MD LAB POINT OF CA RE TEST DOCKED DEVICE UNSOLICITED RESULTS Final Result [facility] [address] [place] [address], documented in this encounter Visit Diagnoses Not on filedocumented in this encounter Care Teams Senior Director Finance Relationship Specialty Start Date End Date Cornelia oTrres APRN,TRANSPLANT COORDINATOR [address] [place] [phone] PCP - General Nurse Practitioner Family 11/14/21 Jadon Pelletier MD 06/23/17 Armando Restrepo [place] 06/23/17 Jadon Rossi MD [address] [place] [address] Internal Medicine Cardiovascular Disease 01/11/21 Patricia Babb APRN,TRANSPLANT COORDINATOR [address] [place] [address] Heart Failure Team Nurse Practitioner 03/13/21 Cecilia Crenshaw MD [address] [place] [address] Internal Medicine - Nephrology 07/23/24 Sal Rascon MD [address] [place] [address] Cardiology-Interventional 10/31/24 documented as of this encounter Additional Source Comments PLEASE NOTE: Replies to this message will not be received.[facility]
--- OUTSIDE RECORDS SUMMARY | 2024-11-25 08:14 | XMS_ITS | Encounter Summary ---
Author Organization [facility] Address [address] [place] [address] Care Team Providers Care Oracle Ebs Architect Name Role Phone Jadon Pelletier MD Unavailable Unavaila Armando Basurto MD Unavailable Jadon Rossi MD Unavailable [phone] Patricia Babb GAMING MANAGER,[facility] Unavailable + Cornelia Torres GAMING MANAGER,[facility] Primary Care Provider + Cecilia Crenshaw MD Unavailabl e Sal Rascon MD Unavailable [phone] Reason for Visit * Cardiac Rehab (Routine) - Authorized Specialty Diagnoses / Procedures Referred By Contac t Referred To Contact Cardiology Diagnoses ST elevation myocardial infarction involving left anterior descending (LAD) coronary artery (HCC) Josue Guerra MD [address] [place] [phone] Phone: tel: fax: [facility] [address] [place] [address] Phone: tel: fax: Referral ID Status Reason Start Date Expiration Date V isits Requested Visits Authorized [id number] Authorized 10/29/2024 11/28/2025 72 72 Encounter Details Date Type Department Care Team (Latest Contact Info) Description 11/25/2024 8:14 AM CDT - 11/25/2024 11:59 PM CDT Hospital Encounter [facility] [address] [place] [address] Josue Guerra MD [address] [place] [place] [phone] Monitored, Cardiac Rehab Subj: Appointment Scheduled Discharge [...] from your doctor or pharmacy? Never 03/17/2024 [employer] Answer Date Recorded In the past 12 months has e [employer], oil, or water [employer] threatened to shut off services in your [...] often do you attend chur ch or catholic services? Never 03/17/2024 Do you belong to any clubs o r organizations such as lutheran groups, unions, fraternal or athletic groups, or [...] care, and heating? Not very hard 03/17/2024 [facility] - [...] any time in the past 12 m [facility], were you homeless or living in a intermediate (including now)? No 10/29/2024 Housing Stability Answer [...] any time in the past 12 m [facility], were you homeless or living in a intermediate (including now)? 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 Per patient, medications taken as prescribed.RESPONSE: Patient tolerated exercise session well with no complaints.RESPONSE: HR, BS and BP responses to exercise were appropriate.RHYTHM: Sinus rhythm with no ectopy, no ST changes noted.UNITS CHARGED: Exercise session - 4 (60 minutes).PRITIKIN EDUCATION: CS01 Adding Flavor Without Salt (60 Minutes) UNITS CHARGED: Education -1 documented in this encounter Plan of Treatment Upcoming Encounters Date Type Department Care Team (Late st Contact Info) Description 01/04/2025 8:30 AM CDT Appointment [facility] [address] [place], [place] [id number] Josue Guerra MD [address] [place] [address] Monitored, Cardiac Rehab Subj: Appointment Scheduled 01/04/2025 9:30 AM CDT Appointment [facility] [address] [place], [place] [phone] Josue Guerra MD [address] [place] [phone] Subj: Appointment Scheduled 01/06/2025 8:30 AM CDT Appointment [facility] [address] [place] [address] Josue Guerra MD [address] [facility] [address] Monitored, Cardiac Rehab Subj: Appointment Scheduled 01/06/2025 9:30 AM CDT Appointment [facility] [address] [place] [address] Josue Guerra MD [address] [facility] [address] Subj: Appointment Scheduled 01/11/2025 8:30 AM CDT Appointment [facility] [address] [place] [address] Josue Guerra MD [address] [facility] [address] Monitored, Cardiac Rehab Subj: Appointment Scheduled 01/11/2025 9:30 AM CDT Appointment [facility] [address] [place] [address] Josue Guerra MD [address] [facility] [address] Subj: Appointment Scheduled 01/13/2025 8:30 AM CDT Appointment [facility] [address] [place] [address], [place] [address] Josue Guerra MD [address] [facility] [address] Monitored, Cardiac Rehab Subj: Appointment Scheduled 01/13/2025 9:30 AM CDT Appointment [facility] [address] [place] [address], [place] [address] [place] [address] [place] [address], [place] [address] Subj: Appointment Scheduled 01/18/2025 8:30 AM CDT Appointment [facility] [address] [place] [address], [place] [address] [place] [address] [place] [address], [place] [address] Monitored, Cardiac Rehab Subj: Appointment Scheduled 01/18/2025 9:30 AM CDT Appointment [facility] [address] [place] [address], [place] [address] Josue Guerra MD [address] [facility] [address] Subj: Appointment Scheduled 01/20/2025 8:30 AM CDT Appointment [facility] [address] [place] [address], [place] [address] Josue Guerra MD [address] [facility] [address] Monitored, Cardiac Rehab Subj: Appointment Scheduled 01/20/2025 9:30 AM CDT Appointment [facility] [address] [place] [address] oJsue Guerra MD [address] [facility] [address] Subj: Appointment Scheduled 01/25/2025 8:30 AM CDT Appointment [facility] [address] [place] [address] Josue Guerra MD [address] [facility] [address] Monitored, Cardiac Rehab Subj: Appointment Scheduled 01/25/2025 9:30 AM CDT Appointment [facility] [address] [place] [address], [place] [address] Josue Guerra MD [address] [facility] [address] Subj: Appointment Scheduled 01/27/2025 8:30 AM CDT Appointment [facility] [address] [place] [address], [place] [address] Josue Guerra MD [address] [facility] [address] Monitored, Cardiac Rehab Subj: Appointment Scheduled 01/27/2025 9:30 AM CDT Appointment [facility] [address] [place] [address], [place] [address] Josue Guerra MD [address] [facility] [address] Subj: Appointment Scheduled 02/01/2025 8:30 AM CDT Appointment [facility] [address] [facility] [address] Josue Guerra MD [address] [facility] [address] Monitored, Cardiac Rehab Subj: Appointment Scheduled 02/01/2025 9:30 AM CDT Appointment [facility] [address] [facility] [place] [address] [place] [address] [place] [address], [place] [address] Subj: Appointment Scheduled 02/03/2025 8:30 AM CDT Appointment [facility] [address] [place] [address] Josue Guerra MD [address] [facility] [address] Monitored, Cardiac Rehab Subj: Appointment Scheduled 02/03/2025 9:30 AM CDT Appointment [facility] [address] [facility] [place] [address] Josue Guerra MD [address] [facility] [address] Subj: Appointment Scheduled 02/08/2025 8:30 AM CDT Appointment [facility] [address] [facility] [place] [address] Josue Guerra MD [address] [facility] [address] Monitored, Cardiac Rehab Subj: Appointment Scheduled 02/08/2025 9:30 AM CDT Appointment [facility] [address] [facility] [place] [address] Josue Guerra MD [address] [facility] [address] Subj: Appointment Scheduled 02/10/2025 8:30 AM CDT Appointment [facility] [address] [place] [address], [place] [address] Josue Guerra MD [address] [facility] [address] Monitored, Cardiac Rehab Subj: Appointment Scheduled 02/10/2025 9:30 AM CDT Appointment [facility] [address] [place] [address], [place] [address] Josue Guerra MD [address] [facility] [address] Subj: Appointment Scheduled 02/15/2025 8:30 AM CDT Appointment [facility] [address] [place] [address], [place] [address] Josue Guerra MD [address] [facility] [address] Monitored, Cardiac Rehab Subj: Appointment Scheduled 02/15/2025 9:30 AM CDT Appointment [facility] [address] [place] [address], [place] [address] Josue Guerra MD [address] [facility] [address] Subj: Appointment Scheduled 02/17/2025 8:30 AM CDT Appointment [facility] [address] [place] [address], [place] [address] [place] [address] [place] [address], [place] [address] Monitored, Cardiac Rehab Subj: Appointment Scheduled 02/17/2025 9:30 AM CDT Appointment [facility] [address] [place] [address], [place] [address] [place] [address] [place] [address], [place] [address] Subj: Appointment Scheduled 02/22/2025 8:30 AM CDT Appointment [facility] [address] [place] [address], [place] [address] Josue Guerra MD [address] [facility] [address] Monitored, Cardiac Rehab Subj: Appointment Scheduled 02/22/2025 9:30 AM CDT Appointment [facility] [address] [place] [address], [place] [address] Josue Guerra MD [address] [facility] [address] Subj: Appointment Scheduled 02/24/2025 8:30 AM CDT Appointment [facility] [address] [place] [address] Josue Guerra MD [address] [facility] [address] Monitored, Cardiac Rehab Subj: Appointment Scheduled 02/24/2025 9:30 AM CDT Appointment [facility] [address] [place] [address] Josue Guerra MD [address] [facility] [address] Subj: Appointment Scheduled 03/01/2025 8:30 AM CDT Appointment [facility] [address] [place] [address] Josue Guerra MD [address] [facility] [address] Monitored, Cardiac Rehab Subj: Appointment Scheduled 03/01/2025 9:30 AM CDT Appointment [facility] [address] [place] [address] Josue Guerra MD [address] [facility] [address] Subj: Appointment Scheduled 03/03/2025 8:30 AM CDT Appointment [facility] [address] [place] [address] Josue Guerra MD [address] [facility] [address] Monitored, Cardiac Rehab Subj: Appointment Scheduled 03/03/2025 9:30 AM CDT Appointment [facility] [address] [place] [address] Josue Guerra MD [address] [facility] [address] Subj: Appointment Scheduled 03/08/2025 8:30 AM CDT Appointment [facility] [address] [place] [address], [place] [address] [place] [address] [place] [address], [place] [address] Monitored, Cardiac Rehab Subj: Appointment Scheduled 03/08/2025 9:30 AM CDT Appointment [facility] [address] [place] [address] Josue Guerra MD [address] [facility] [address] Subj: Appointment Scheduled 03/10/2025 8:30 AM CDT Appointment [facility] [address] [place] [address] Josue Guerra MD [address] [facility] [address] Monitored, Cardiac Rehab Subj: Appointment Scheduled 03/10/2025 9:30 AM CDT Appointment [facility] [address] [place] [address], [place] [phone] Jouse Guerra MD [address] [facility] [address] Subj: Appointment Scheduled 03/15/2025 8:30 AM CDT Appointment [facility] [address] [facility], [place] [id number] Josue Guerra MD [address] [facility] [address] Monitored, Cardiac Rehab Subj: Appointment Scheduled 03/15/2025 9:30 AM CDT Appointment [facility] [address] [place] [address] Josue Guerra MD [address] [place] [address] Subj: Appointment Scheduled documented as of this encounter Procedures Procedure Name Priority Date/Time Associated Diagnosis Comments GLUCOSE, POC Routine 11/25/2024 9:30 AM CDT GLUCOSE, POC Routine 11/25/2024 8:32 AM CDT documented in this encounter Results * (ABNORMAL) GLUCOSE, POC (11/25/2024 9:30 AM CDT) Only the most recent of2 resultswithin the time period is included. Glucose by Meter 109(H) 70 - 100 mg/dL 11/25/2024 9:43 AM CDT [facility] Comment:Blood, Capil Blood CAPILLARY BLOOD / Unknown 11/25/2024 9:30 AM CDT 11/25/2024 9:43 AM CDT Josue Guerra MD LAB POINT OF CA RE TEST DOCKED DEVICE UNSOLICITED RESULTS Final Result [facility] [address] [place] [address], documented in this encounter Visit Diagnoses Not on filedocumented in this encounter Care Teams Oracle Ebs Architect Relationship Specialty Start Date End Date Cornelia Torres APRN,DIRECTOR INPATIENT HEADACHE PROGRAM [address] [place] [phone] PCP - General Nurse Practitioner Family 11/14/21 Jadon Pelletier MD 06/23/17 Armando Restrepo MD [place] 06/23/17 Jadon Rossi MD [address] [place] [address] Internal Medicine Cardiovascular Disease 01/11/21 Patricia Babb APRN,DIRECTOR INPATIENT HEADACHE PROGRAM [address] [place] [address] Heart Failure Team Nurse Practitioner 03/13/21 Cecilia Crenshaw MD [address] [place] [address] Internal Medicine - Nephrology 07/23/24 Sal Rascon MD [address] [place] [address] Cardiology-Interventional 10/31/24 documented as of this encounter Additional Source Comments PLEASE NOTE: Replies to this message will not be received.[facility]
--- OUTSIDE RECORDS SUMMARY | 2024-11-30 08:15 | XMS_ITS | Encounter Summary ---
Author Organization [facility] [employer] Address [address] [place] [id number] Care Team Providers Care Emergency Medical Service Coordinator Name Role Phone Jadon Pelletier MD Unavailable Unavaila Armando Basurto MD Unavailable Jadon Rossi MD Unavailable Patricia Babb CLARIFIER OPERATOR HELPER,[facility] Unavailable + Cornelia Torres CLARIFIER OPERATOR HELPER,[facility] Primary Care Provider + Cecilia Crenshaw MD Unavailabl e Sal Rascon MD Unavailable [phone] Reason for Visit * Cardiac Rehab (Routine) - Authorized Specialty Diagnoses / Procedures Referred By Contac t Referred To Contact Cardiology Diagnoses ST elevation myocardial infarction involving left anterior descending (LAD) coronary artery (HCC) Josue Guerra MD [address] [place] [phone] Phone: tel: fax: [facility] [address] [place] [address] Phone: tel: fax: Referral ID Status Reason Start Date Expiration Date V isits Requested Visits Authorized [id number] Authorized 10/29/2024 11/28/2025 72 72 Encounter Details Date Type Department Care Team (Latest Contact Info) Description 11/30/2024 8:15 AM CDT - 11/30/2024 11:59 PM CDT Hospital Encounter [facility] [address] [place] [address] Josue Guerra MD [address] [place] [address] Monitored, Cardiac Rehab Subj: Questionnaire [...] from your doctor or pharmacy? Never 03/17/2024 [employer] Answer Date Recorded In the past 12 months has e [employer], oil, or water [employer] threatened to shut off services in your [...] often do you attend chur ch or baptism services? Never 03/17/2024 Do you belong to any clubs o r organizations such as orthodox groups, unions, fraternal or athletic groups, or [...] care, and heating? Not very hard 03/17/2024 [facility] - Occupational [...] any time in the past 12 m [facility], were you homeless or living in a custodial (including now)? No 10/29/2024 Housing Stability Answer [...] any time in the past 12 m [facility], were you homeless or living in a custodial (including now)? 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 Per patient, medications taken as prescribed.RESPONSE: Patient tolerated exercise session well with no complaints.RESPONSE: HR and BP responses to exercise were appropriate.RHYTHM: Sinus rhythm with no ectopy, no ST changes noted.UNITS CHARGED: Exercise session - 4 (60 minutes).PRITIKIN EDUCATION: HM3 Recognizing and Reducing Stress (60 Minutes) UNITS CHARGED: Education -1 documented in this encounter Plan of Treatment Upcoming Encounters Date Type Department Care Team (Late st Contact Info) Description 01/04/2025 8:30 AM CDT Appointment [facility] [address] [place], [place] [phone] Josue Guerra MD [address] [place] [address] Monitored, Cardiac Rehab Subj: Appointment Scheduled 01/04/2025 9:30 AM CDT Appointment [facility] [address] [place], [place] [phone] Josue Guerra MD [address] [place] [address] Subj: Appointment Scheduled 01/06/2025 8:30 AM CDT Appointment [facility] [address] [place] [address] Josue Guerra MD [address] [place] [place] [address] Monitored, Cardiac Rehab Subj: Appointment Scheduled 01/06/2025 9:30 AM CDT Appointment [facility] [address] [facility] [place] [address] Josue Guerra MD [address] [place] [address] Subj: Appointment Scheduled 01/11/2025 8:30 AM CDT Appointment [facility] [address] [facility] [place] [address] Josue Guerra MD [address] [place] [address] Monitored, Cardiac Rehab Subj: Appointment Scheduled 01/11/2025 9:30 AM CDT Appointment [facility] [address] [facility] [place] [address] Josue Guerra MD [address] [facility] [place] [address] Subj: Appointment Scheduled 01/13/2025 8:30 AM CDT Appointment [facility] [address] [facility] [place] [address] Josue Guerra MD [address] [place] [address] Monitored, Cardiac Rehab Subj: Appointment Scheduled 01/13/2025 9:30 AM CDT Appointment [facility] [address] [place] [address], [place] [address] Josue Guerra MD [address] [place] [address] Subj: Appointment Scheduled 01/18/2025 8:30 AM CDT Appointment [facility] [address] [place] [address], [place] [address] [place] [address] [place] [address], [place] [address] Monitored, Cardiac Rehab Subj: Appointment Scheduled 01/18/2025 9:30 AM CDT Appointment [facility] [address] [place] [address], [place] [address] Josue Guerra MD [address] [place] [address] Subj: Appointment Scheduled 01/20/2025 8:30 AM CDT Appointment [facility] [address] [place] [address], [place] [address] [place] [address] [place] [address], [place] [address] Monitored, Cardiac Rehab Subj: Appointment Scheduled 01/20/2025 9:30 AM CDT Appointment [facility] [address] [place] [address], [place] [address] Josue Guerra MD [address] [place] [address] Subj: Appointment Scheduled 01/25/2025 8:30 AM CDT Appointment [facility] [address] [place] [address], [place] [address] [place] [address] [place] [address], [place] [address] Monitored, Cardiac Rehab Subj: Appointment Scheduled 01/25/2025 9:30 AM CDT Appointment [facility] [address] [place] [address], [place] [address] [place] [address] [place] [address], [place] [address] Subj: Appointment Scheduled 01/27/2025 8:30 AM CDT Appointment [facility] [address] [place] [address], [place] [address] Josue Guerra MD [address] [place] [address] Monitored, Cardiac Rehab Subj: Appointment Scheduled 01/27/2025 9:30 AM CDT Appointment [facility] [address] [place] [address], [place] [address] [place] [address] [place] [address], [place] [address] Subj: Appointment Scheduled 02/01/2025 8:30 AM CDT Appointment [facility] [address] [facility] [place] [address] Josue Guerra MD [address] [place] [address] Monitored, Cardiac Rehab Subj: Appointment Scheduled 02/01/2025 9:30 AM CDT Appointment [facility] [address] [place] [address] Josue Guerra MD [address] [place] [address] Subj: Appointment Scheduled 02/03/2025 8:30 AM CDT Appointment [facility] [address] [place] [address] Josue Guerra MD [address] [place] [address] Monitored, Cardiac Rehab Subj: Appointment Scheduled 02/03/2025 9:30 AM CDT Appointment [facility] [address] [place] [address] Josue Guerra MD [address] [place] [address] Subj: Appointment Scheduled 02/08/2025 8:30 AM CDT Appointment [facility] [address] [place] [address], [place] [address] Josue Guerra MD [address] [place] [address] Monitored, Cardiac Rehab Subj: Appointment Scheduled 02/08/2025 9:30 AM CDT Appointment [facility] [address] [facility] [place] [address] Josue Guerra MD [address] [place] [address] Subj: Appointment Scheduled 02/10/2025 8:30 AM CDT Appointment [facility] [address] [place] [address] Josue Guerra MD [address] [place] [address] Monitored, Cardiac Rehab Subj: Appointment Scheduled 02/10/2025 9:30 AM CDT Appointment [facility] [address] [place] [address] Josue Guerra MD [address] [place] [address] Subj: Appointment Scheduled 02/15/2025 8:30 AM CDT Appointment [facility] [address] [place] [address] Josue Guerra MD [address] [place] [address] Monitored, Cardiac Rehab Subj: Appointment Scheduled 02/15/2025 9:30 AM CDT Appointment [facility] [address] [place] [address], [place] [address] Josue Guerra MD [address] [place] [address] Subj: Appointment Scheduled 02/17/2025 8:30 AM CDT Appointment [facility] [address] [place] [address], [place] [address] Josue Guerra MD [address] [place] [address] Monitored, Cardiac Rehab Subj: Appointment Scheduled 02/17/2025 9:30 AM CDT Appointment [facility] [address] [place] [address], [place] [address] Josue Guerra MD [address] [place] [address] Subj: Appointment Scheduled 02/22/2025 8:30 AM CDT Appointment [facility] [address] [place] [address], [place] [address] Josue Guerra MD [address] [place] [address] Monitored, Cardiac Rehab Subj: Appointment Scheduled 02/22/2025 9:30 AM CDT Appointment [facility] [address] [place] [address], [place] [address] Josue Guerra MD [address] [place] [address] Subj: Appointment Scheduled 02/24/2025 8:30 AM CDT Appointment [facility] [address] [place] [address] Josue Guerra MD [address] [place] [address] Monitored, Cardiac Rehab Subj: Appointment Scheduled 02/24/2025 9:30 AM CDT Appointment [facility] [address] [place] [address], [place] [address] Josue Guerra MD [address] [place] [address] Subj: Appointment Scheduled 03/01/2025 8:30 AM CDT Appointment [facility] [address] [place] [address], [place] [address] Josue Guerra MD [address] [place] [address] Monitored, Cardiac Rehab Subj: Appointment Scheduled 03/01/2025 9:30 AM CDT Appointment [facility] [address] [place] [address], [place] [address] Josue Guerra MD [address] [place] [address] Subj: Appointment Scheduled 03/03/2025 8:30 AM CDT Appointment [facility] [address] [place] [address], [place] [address] Josue Guerra MD [address] [place] [address] Monitored, Cardiac Rehab Subj: Appointment Scheduled 03/03/2025 9:30 AM CDT Appointment [facility] [address] [place] [address] Josue Guerra MD [address] [place] [address] Subj: Appointment Scheduled 03/08/2025 8:30 AM CDT Appointment [facility] [address] [place] [address] Josue Guerra MD [address] [place] [address] Monitored, Cardiac Rehab Subj: Appointment Scheduled 03/08/2025 9:30 AM CDT Appointment [facility] [address] [place] [address] Josue Guerra MD [address] [place] [address] Subj: Appointment Scheduled 03/10/2025 8:30 AM CDT Appointment [facility] [address] [place] [address] Josue Guerra MD [address] [place] [address] Monitored, Cardiac Rehab Subj: Appointment Scheduled 03/10/2025 9:30 AM CDT Appointment [facility] [address] [place] [address], [place] [address] Josue Guerra MD [address] [place] [address] Subj: Appointment Scheduled 03/15/2025 8:30 AM CDT Appointment [facility] [address] [place] [address] Josue Guerra MD [address] [place] [address] Monitored, Cardiac Rehab Subj: Appointment Scheduled 03/15/2025 9:30 AM CDT Appointment [facility] [address] [place] [address], [place] [address] Josue Guerra MD [address] [place] [address] Subj: Appointment Scheduled documented as of this encounter Procedures Procedure Name Priority Date/Time Associated Diagnosis Comments GLUCOSE, POC Routine 11/30/2024 9:27 AM CDT GLUCOSE, POC Routine 11/30/2024 8:30 AM CDT documented in this encounter Results * (ABNORMAL) GLUCOSE, POC (11/30/2024 9:27 AM CDT) Only the most recent of2 resultswithin the time period is included. Glucose by Meter 109(H) 70 - 100 mg/dL 11/30/2024 9:39 AM CDT [facility] Comment:Blood, Capil Blood CAPILLARY BLOOD / Unknown 11/30/2024 9:27 AM CDT 11/30/2024 9:39 AM CDT Josue Guerra MD LAB POINT OF CA RE TEST DOCKED DEVICE UNSOLICITED RESULTS Final Result [facility] [address] [place] [address], documented in this encounter Visit Diagnoses Not on filedocumented in this encounter Care Teams Emergency Medical Service Coordinator Relationship Specialty Start Date End Date Cornelia Torres APRN,HADOOP APPLICATION DEVELOPER [address] [place] [phone] PCP - General Nurse Practitioner Family 11/14/21 Jadon Pelletier MD 06/23/17 Armando Restrepo MD [place] 06/23/17 Jadon Rossi MD [address] [place] [address] Internal Medicine Cardiovascular Disease 01/11/21 Patricia Babb APRN,HADOOP APPLICATION DEVELOPER [address] [place] [address] Heart Failure Team Nurse Practitioner 03/13/21 Cecilia Crenshaw MD [address] [place] [address] Internal Medicine - Nephrology 07/23/24 Sal Rascon MD [address] [place] [address] Cardiology-Interventional 10/31/24 documented as of this encounter Additional Source Comments PLEASE NOTE: Replies to this message will not be received.[facility]
--- OUTSIDE RECORDS SUMMARY | 2024-12-02 08:11 | XMS_ITS | Encounter Summary ---
Author Organization [facility] [employer] Address [address] [place] [address] Care Team Providers Care Heel Shaver Name Role Phone Jadon Pelletier MD Unavailable Unavaila Armando Basurto MD Unavailable Jadon Rossi MD Unavailable Patricia Babb PROGRAM MANAGER TRANSPORTATION,[facility] Unavailable + Cornelia Torres PROGRAM MANAGER TRANSPORTATION,[facility] Primary Care Provider + Cecilia Crenshaw MD Unavailabl e Sal Rascon MD Unavailable [phone] Reason for Visit * Cardiac Rehab (Routine) - Authorized Specialty Diagnoses / Procedures Referred By Contac t Referred To Contact Cardiology Diagnoses ST elevation myocardial infarction involving left anterior descending (LAD) coronary artery (HCC) Josue Guerra MD [address] [place] [phone] Phone: tel: fax: [facility] [address] [place] [address] Phone: tel: fax: Referral ID Status Reason Start Date Expiration Date V isits Requested Visits Authorized [id number] Authorized 10/29/2024 11/28/2025 72 72 Encounter Details Date Type Department Care Team (Latest Contact Info) Description 12/02/2024 8:11 AM CDT - 12/02/2024 11:59 PM CDT Hospital Encounter [facility] [address] [place] [address] Josue Guerra MD [address] [place] [address] Monitored, Cardiac Rehab Subj: Questionnaire [...] from your doctor or pharmacy? Never 03/17/2024 Jenn Rykertities Answer Date Recorded In the past 12 months has e [employer], oil, or water [employer] threatened to shut off services in your [...] often do you attend chur ch or muslim services? Never 03/17/2024 Do you belong to any clubs o r organizations such as adventist groups, unions, fraternal or athletic groups, or [...] care, and heating? Not very hard 03/17/2024 [facility] - Occupational [...] any time in the past [address] [facility], were you homeless or living in a nursing home (including now)? No 10/29/2024 Housing Stability [...] any time in the past [address] [facility], were you homeless or living in a nursing home (including now)? 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 Per patient, medications taken as prescribed.RESPONSE: Patient tolerated exercise session well with no complaints. Patient is down 3lbs since last OPCR session.RESPONSE: HR and BP responses to exercise were appropriate.RHYTHM: Sinus rhythm with no ectopy, no ST changes noted.UNITS CHARGED: Exercise session - 4 (60 minutes).PRITIKIN EDUCATION: CS02 Fast Breakfast (60 Minutes) UNITS CHARGED: Education -1 documented in this encounter Plan of Treatment Upcoming Encounters Date Type Department Care Team (Late st Contact Info) Description 01/04/2025 8:[address] [facility] [address] [place], [place] [id number] Josue Guerra MD [address] [place] [address] Monitored, Cardiac Rehab Subj: Appointment Scheduled 01/04/2025 9:[address] [facility] [address] [place], [place] [phone] Josue Guerra MD [address] [place] [address] Subj: Appointment Scheduled 01/06/2025 8:[address] [facility] [address] [place] [address] Josue Guerra MD [address] [facility] [place] [address] Monitored, Cardiac Rehab Subj: Appointment Scheduled 01/06/2025 9:[address] [facility] [address] [facility] [place] [address] Josue Guerra MD [address] [facility] [place] [address] Subj: Appointment Scheduled 01/11/2025 8:[address] [facility] [address] [facility] [place] [address] Josue Guerra MD [address] [facility] [place] [address] Monitored, Cardiac Rehab Subj: Appointment Scheduled 01/11/2025 9:[address] [facility] [address] [facility] [place] [address] Josue Guerra MD [address] [facility] [place] [address] Subj: Appointment Scheduled 01/13/2025 8:[address] [facility] [address] [place] [address], [place] [address] Josue Guerra MD [address] [facility] [place] [address] Monitored, Cardiac Rehab Subj: Appointment Scheduled 01/13/2025 9:[address] [facility] [address] [place] [address], [place] [address] [place] [address] [place] [address], [place] [address] Subj: Appointment Scheduled 01/18/2025 8:[address] [facility] [address] [place] [address], [place] [address] [place] [address] [place] [address], [place] [address] Monitored, Cardiac Rehab Subj: Appointment Scheduled 01/18/2025 9:[address] [facility] [address] [place] [address], [place] [address] [place] [address] [place] [address], [place] [address] Subj: Appointment Scheduled 01/20/2025 8:[address] [facility] [address] [place] [address], [place] [address] [place] [address] [place] [address], [place] [address] Monitored, Cardiac Rehab Subj: Appointment Scheduled 01/20/2025 9:[address] [facility] [address] [facility] [place] [address] Josue Guerra MD [address] [facility] [place] [address] Subj: Appointment Scheduled 01/25/2025 8:[address] [facility] [address] [facility] [place] [address] Josue Guerra MD [address] [facility] [place] [address] Monitored, Cardiac Rehab Subj: Appointment Scheduled 01/25/2025 9:[address] [facility] [address] [place] [address], [place] [address] Josue Guerra MD [address] [facility] [place] [address] Subj: Appointment Scheduled 01/27/2025 8:[address] [facility] [address] [place] [address], [place] [address] Josue Guerra MD [address] [facility] [place] [address] Monitored, Cardiac Rehab Subj: Appointment Scheduled 01/27/2025 9:[address] [facility] [address] [place] [address], [place] [address] Josue Guerra MD [address] [facility] [place] [address] Subj: Appointment Scheduled 02/01/2025 8:[address] [facility] [address] [place] [address] Josue Guerra MD [address] [place] [address] Monitored, Cardiac Rehab Subj: Appointment Scheduled 02/01/2025 9:[address] [facility] [address] [facility] [place] [address] Josue Guerra MD [address] [facility] [address] Subj: Appointment Scheduled 02/03/2025 8:[address] [facility] [address] [place] [address] Josue Guerra MD [address] [facility] [place] [address] Monitored, Cardiac Rehab Subj: Appointment Scheduled 02/03/2025 9:[address] [facility] [address] [facility] [place] [address] Josue Guerra MD [address] [place] [facility] [place] [address] Subj: Appointment Scheduled 02/08/2025 8:[address] [facility] [address] [place] [address] Josue Guerra MD [address] [facility] [place] [address] Monitored, Cardiac Rehab Subj: Appointment Scheduled 02/08/2025 9:[address] [facility] [address] [place] [address], [place] [address] Josue Guerra MD [address] [facility] [address] Subj: Appointment Scheduled 02/10/2025 8:[address] [facility] [address] [place] [address], [place] [address] [place] [address] [place] [address], [place] [address] Monitored, Cardiac Rehab Subj: Appointment Scheduled 02/10/2025 9:[address] [facility] [address] [place] [address], [place] [address] Josue Guerra MD [address] [facility] [address] Subj: Appointment Scheduled 02/15/2025 8:[address] [facility] [address] [place] [address], [place] [address] Josue Guerra MD [address] [facility] [place] [address] Monitored, Cardiac Rehab Subj: Appointment Scheduled 02/15/2025 9:[address] [facility] [address] [place] [address], [place] [address] Josue Guerra MD [address] [facility] [address] Subj: Appointment Scheduled 02/17/2025 8:[address] [facility] [address] [place] [address], [place] [address] [place] [address] [place] [address], [place] [address] Monitored, Cardiac Rehab Subj: Appointment Scheduled 02/17/2025 9:[address] [facility] [address] [place] [address], [place] [address] [place] [address] [place] [address], [place] [address] Subj: Appointment Scheduled 02/22/2025 8:[address] [facility] [address] [place] [address], [place] [address] Josue Guerra MD [address] [facility] [address] Monitored, Cardiac Rehab Subj: Appointment Scheduled 02/22/2025 9:[address] [facility] [address] [place] [address], [place] [address] Josue Guerra MD [address] [facility] [address] Subj: Appointment Scheduled 02/24/2025 8:[address] [facility] [address] [place] [address] Josue Guerra MD [address] [facility] [address] Monitored, Cardiac Rehab Subj: Appointment Scheduled 02/24/2025 9:[address] [facility] [address] [facility] [place] [address] Josue Guerra MD [address] [facility] [address] Subj: Appointment Scheduled 03/01/2025 8:[address] [facility] [address] [facility] [place] [address] Josue Guerra MD [address] [facility] [address] Monitored, Cardiac Rehab Subj: Appointment Scheduled 03/01/2025 9:[address] [facility] [address] [facility] [place] [address] Josue Guerra MD [address] [facility] [address] Subj: Appointment Scheduled 03/03/2025 8:[address] [facility] [address] [facility] [place] [address] Josue Guerra MD [address] [facility] [address] Monitored, Cardiac Rehab Subj: Appointment Scheduled 03/03/2025 9:[address] [facility] [address] [facility] [place] [address] Josue Guerra MD [address] [facility] [address] Subj: Appointment Scheduled 03/08/2025 8:[address] [facility] [address] [place] [address], [place] [address] [place] [address] [place] [address], [place] [address] Monitored, Cardiac Rehab Subj: Appointment Scheduled 03/08/2025 9:[address] [facility] [address] [place] [address], [place] [address] Josue Guerra MD [address] [facility] [address] Subj: Appointment Scheduled 03/10/2025 8:[address] [facility] [address] [place] [address], [place] [address] Josue Guerra MD [address] [facility] [address] Monitored, Cardiac Rehab Subj: Appointment Scheduled 03/10/2025 9:[address] [facility] [address] [place] [address], [place] [address] Josue Guerra MD [address] [place] [address] Subj: Appointment Scheduled 03/15/2025 8:[address] [facility] [address] [place] [address] Josue Guerra MD [address] [place] [address] Monitored, Cardiac Rehab Subj: Appointment Scheduled 03/15/2025 9:[address] [facility] [address] [place] [id number] Josue Guerra MD [address] [place] [address] Subj: Appointment Scheduled documented as of this encounter Visit Diagnoses Not on filedocumented in this encounter Care Teams Heel Shaver Relationship Specialty Start Date End Date Cornelia Torres APRN,LASER/ELECTRO OPTICS TECHNICIAN [address] [place] [address] PCP - General Nurse Practitioner Family 11/14/21 Jadon Pelletier MD 06/23/17 Armando Restrepo MD [place] 06/23/17 Jadon Rossi MD [address] [place] [address] Internal Medicine Cardiovascular Disease 01/11/21 Patricia Babb APRN,LASER/ELECTRO OPTICS TECHNICIAN [address] [place] [phone] Heart Failure Team Nurse Practitioner 03/13/21 Cecilia Crenshaw MD [address] [place] [address] Internal Medicine - Nephrology 07/23/24 Sal Rascon MD [address] [place] [address] Cardiology-Interventional 10/31/24 documented as of this encounter Additional Source Comments PLEASE NOTE: Replies to this message will not be received.[facility]
--- OUTSIDE RECORDS SUMMARY | 2024-12-07 08:09 | XMS_ITS | Encounter Summary ---
Author Organization [facility] Address [address] [place] [id number] Care Team Providers Care Tray Room Worker Name Role Phone Jadon Pelletier MD Unavailable Unavaila Armando Basurto MD Unavailable Jadon Rossi MD Unavailable Patricia Babb FLORICULTURIST,[facility] Unavailable + Cornelia Torres FLORICULTURIST,[facility] Primary Care Provider + Cecilia Crenshaw MD Unavailabl e Sal Rascon MD Unavailable [phone] Reason for Visit * Cardiac Rehab (Routine) - Authorized Specialty Diagnoses / Procedures Referred By Contac t Referred To Contact Cardiology Diagnoses ST elevation myocardial infarction involving left anterior descending (LAD) coronary artery (HCC) Josue Guerra MD [address] [place] [phone] Phone: tel: fax: [facility] [address] [place] [address] Phone: tel: fax: Referral ID Status Reason Start Date Expiration Date V isits Requested Visits Authorized [id number] Authorized 10/29/2024 11/28/2025 72 72 Encounter Details Date Type Department Care Team (Latest Contact Info) Description 12/07/2024 8:09 AM CDT - 12/07/2024 11:59 PM CDT Hospital Encounter [facility] [address] [place] [address] Josue Guerra MD [address] [place] [phone] Monitored, Cardiac Rehab Subj: Appointment Scheduled Discharge [...] from your doctor or pharmacy? Never 03/17/2024 [employer] Answer Date Recorded In the past 12 months has e [employer], oil, or water [employer] threatened to shut off services in your [...] often do you attend chur ch or gnosticism services? Never 03/17/2024 Do you belong to any clubs o r organizations such as sabianism groups, unions, fraternal or athletic groups, or [...] and heating? Not very hard 03/17/2024 [facility] - Occupational [...] time in the past 12 m [facility], were you homeless or living in a detention (including now)? No 10/29/2024 Housing Stability Answer [...] time in the past 12 m [facility], were you homeless or living in a detention (including now)? 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 Answer Date of Assessment Author No 10/29/2024 11:00 PM T Mine Siegel RN * Are you blind or do you have serious difficulty seeing, even when wearing glasses? Answer Date of Assessment Author No 10/29/2024 11:00 PM T Mine Siegel RN * Do you have serious difficulty [...] Tablet, ChewableIndication s:NSTEMI (non-ST elevated myocardial infarction) ([facility]) Chew and Swallow 1 Tablet (81 mg) by mouth once daily. 0 01/11/2021 atorvastatin (LIPITOR) 80 mg oral TabletIndications: ST elevation myocardial infarction involving left anterior descending (LAD) coronary artery (HCC) Take 1 Tablet (80 mg) by mouth at bedtime. 90 Tablet 3 10/31/2024 12:46 PM CDT 10/31/2024 6 carvediloL (COREG) 6.25 mg oral TabletIndications: ST [...] * Multidisciplinary Note - Himanshu Pimentel - 12/07/2024 12:19 PM CDT Post-Session Comments:Supervising Physician: Cam Amaya MD.Per patient, no medication changes since last visit. Per patient, medications taken as prescribed. RESPONSE: Patient tolerated exercise session well with no complaints. RESPONSE: HR and BP responses to exercise were appropriate. RHYTHM: Sinus rhythm with no ectopy, no ST changes noted. UNITS CHARGED: Exercise session - 4 (60 minutes).PRITIKIN EDUCATION: NW3 Menus (60 Minutes) UNITS CHARGED: Education -1 * Certifications - Julieta Marshall - 12/07/2024 9:12 AM CDT Images from the original note were not included. [facility] [address] [facility] [address] Outpatient Cardiac Rehab Individualized Treatment Plan: 30 Day Update General Name: Ankur Cardenas Date of : 1955 Program Referring MD: Josue Guerra, * Onset Diagnosis: STEMI Secondary Diagnosis: Stent Onset Date: 10/29/24 OPCR Progress Visit #: 8 Total # Sessions: 16 Peak METS: 3.8 Remaining duration of OPCR expected: 72 sessions Problems during Cardiac Rehab Problems during Cardiac Rehab: 12/07/24: no problems Hospital Utilization No data recorded Anthropometric Measurements Weight: 100.7 kg (222 lb) Height: 177.8 cm (5' 10) BMI: 31.85 BEHAVIORAL OUTCOMES Follows prescribed medications: > 80% HEALTH OUTCOMES [employer] Quality of Life Survey Are you seeing any changes that increase your quality of life?: 12/07/24: Patient is happy with the increases in his energy levels and also feels his breathing is getting better as he did get a new inhaler for asthma as well. Exercise Reassessment How many days/week of aerobic exercise?: 5 How many minutes/day of aerobic exercise: 30 Exercise Goal(s) What is your main goal for Cardiac Rehab?: 11/10/24: Patient made a goal to go to the gym three times per week for 30 minutes at a time. Will be a mix of various cardio machines. 12/07/24: Patient currently eithers walks or mows his lawn (push mower) at least three times a week for 30 minutes. His goal this month is to continue to walk three days a week for 30 minutes (or mow in place) and incorporate one day a week to start going to the gym with his . Exercise Interventions 1. Enroll in OPCR with the following Exercise Prescription: Education: patient will receive group or individual education classes Duration: 30+ minutes Modality: aerobic and resistance training utilizing various pieces of equipment to patient's preference and tolerance Intensity: RPE equals 11-14 Progression: Increase 0.5-1.0 METs per week as tolerated based on appropriate physiological response to desired level of functional capacity Target MET level by program end: 4-5 METS 2. Home Exercise Prescription: Exercise Plan: Exercise at home 3. Special Instructions for Exercise: encourage daily exercise for optimal blood sugar management Exercise Education Pritikin Exercise Education: None Nutrition Reassessment Nutrition: Individual consult with RD, see separate note Nutrition Goal(s) 11/10/24: Pt will increase daily produce intake by adding one fruit and one vegetable serving daily.Currently, he is not consistent with intake and sometimes does not have vegetables with his eveningmeal. 12/07/24: Patient may have 1-2 servings of vegetables a day and would like to increase this to3 servings of vegetables a day. Nutrition Interventions Individual consult with RD, see separate note Nutrition Education Deloris Nutrition Education: CS1 Adding Flavor without Salt, CS2 Fast Breakfast, CS12 One-Pot Wonders, NW2 Label Reading, NW3 Menus Psychosocial Reassessment Psychosocial Goals: 11/10/24: Patient has been dealing with many stressful life events recently, including the active passing away of his mother in law. He stated he would like to have a brief conversation with Andrew. 12/07/24: Patient did not meet with Darren Mcconnell and declined meeting with her today. He feels he has the tools and support to manage his stress and grief. Deep breathing techniques and getting out fishing a couple times a week helps him manage his stress and grief. He is going to [place] early December for his Mother in Law's . 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 Psychosocial Education Deloris Psychosocial Education: HM3 Recognizing and Reducing Stress Core Components Reassessment Core Components/Risk Factor Goal (tobacco, hypertension, lipids, diabetes, or other modifiable cardiovascular risk factor): 11/10/24: Patient's goal weight is 200 lbs, patient currently weighs 230 lbs. 12/07/24: Patient was 222lbs today and would like to be down 4-8 lbs by next goal update. Medications: Take medications as prescribed BP Management: Other (add comment) Diabetes Management: (Low Risk of Hypoglycemia) Patients should check their blood glucose to determine a pattern with exercise. Checks may be discontinued if predictable trend occurs with no symptoms. Glucose meter should be brought to each session. Core Component Education Deloris Core Component Education: HRT Managing Heart Disease Re-assessment of ITP due on 01/05/25 End Date: ICR 18 week end date (w+18): 03/16/25 Cosigned by Cam Amaya MD at 12/07/2024 5:31 PM CDT documented in this encounter Plan of Treatment Upcoming Encounters Date Type Department Care Team (Late st Contact Info) Description 01/04/2025 8:30 AM CDT Appointment [facility] [address] [place] [address], [place] [address] Josue Guerra MD [address] [place] [phone] Monitored, Cardiac Rehab Subj: Appointment Scheduled 01/04/2025 9:30 AM CDT Appointment [facility] [address] [place] [address], [place] [address] Josue Guerra MD [address] [place] [address], [place] [phone] Subj: Appointment Scheduled 01/06/2025 8:30 AM CDT Appointment [facility] [address] [place] [address], [place] [address] [place] [address] [place] [address], [place] [address] Monitored, Cardiac Rehab Subj: Appointment Scheduled 01/06/2025 9:30 AM CDT Appointment [facility] [address] [place] [place] [address], [place] [address] [place] [address] [place] [address], [place] [address] Subj: Appointment Scheduled 01/11/2025 8:30 AM CDT Appointment [facility] [address] [facility] [place] [address] Josue Guerra MD [address] [place] [address] Monitored, Cardiac Rehab Subj: Appointment Scheduled 01/11/2025 9:30 AM CDT Appointment [facility] [address] [place] [address] Josue Guerra MD [address] [place] [address] Subj: Appointment Scheduled 01/13/2025 8:30 AM CDT Appointment [facility] [address] [place] [address] Josue Guerra MD [address] [place] [address] Monitored, Cardiac Rehab Subj: Appointment Scheduled 01/13/2025 9:30 AM CDT Appointment [facility] [address] [place] [address] Josue Guerra MD [address] [place] [address] Subj: Appointment Scheduled 01/18/2025 8:30 AM CDT Appointment [facility] [address] [place] [address] Josue Guerra MD [address] [place] [address] Monitored, Cardiac Rehab Subj: Appointment Scheduled 01/18/2025 9:30 AM CDT Appointment [facility] [address] [place] [address] [place] [address] [place] [address], [place] [address] Subj: Appointment Scheduled 01/20/2025 8:30 AM CDT Appointment [facility] [address] [place] [address], [place] [address] [place] [address] [place] [address], [place] [address] Monitored, Cardiac Rehab Subj: Appointment Scheduled 01/20/2025 9:30 AM CDT Appointment [facility] [address] [place] [address], [place] [address] Josue Guerra MD [address] [place] [address] Subj: Appointment Scheduled 01/25/2025 8:30 AM CDT Appointment [facility] [address] [place] [address], [place] [address] Josue Guerra MD [address] [place] [address] Monitored, Cardiac Rehab Subj: Appointment Scheduled 01/25/2025 9:30 AM CDT Appointment [facility] [address] [place] [place] [address], [place] [address] Josue Guerra MD [address] [place] [address] Subj: Appointment Scheduled 01/27/2025 8:30 AM CDT Appointment [facility] [address] [place] [address], [place] [address] Josue Guerra MD [address] [place] [address] Monitored, Cardiac Rehab Subj: Appointment Scheduled 01/27/2025 9:30 AM CDT Appointment [facility] [address] [place] [place] [address], [place] [address] Josue Guerra MD [address] [place] [address] Subj: Appointment Scheduled 02/01/2025 8:30 AM CDT Appointment [facility] [address] [place] [address], [place] [address] Josue Guerra MD [address] [place] [address] Monitored, Cardiac Rehab Subj: Appointment Scheduled 02/01/2025 9:30 AM CDT Appointment [facility] [address] [place] [address], [place] [address] Josue Guerra MD [address] [place] [address] Subj: Appointment Scheduled 02/03/2025 8:30 AM CDT Appointment [facility] [address] [place] [address] Josue Guerra MD [address] [place] [address] Monitored, Cardiac Rehab Subj: Appointment Scheduled 02/03/2025 9:30 AM CDT Appointment [facility] [address] [place] [place] [address], [place] [address] [place] [address] [place] [address], [place] [address] Subj: Appointment Scheduled 02/08/2025 8:30 AM CDT Appointment [facility] [address] [place] [place] [address], [place] [address] [place] [address] [place] [address], [place] [address] Monitored, Cardiac Rehab Subj: Appointment Scheduled 02/08/2025 9:30 AM CDT Appointment [facility] [address] [place] [place] [address], [place] [address] Josue Guerra MD [address] [place] [address] Subj: Appointment Scheduled 02/10/2025 8:30 AM CDT Appointment [facility] [address] [place] [place] [address], [place] [address] Josue Guerra MD [address] [place] [address] Monitored, Cardiac Rehab Subj: Appointment Scheduled 02/10/2025 9:30 AM CDT Appointment [facility] [address] [facility] [place] [address] Josue Guerra MD [address] [place] [address] Subj: Appointment Scheduled 02/15/2025 8:30 AM CDT Appointment [facility] [address] [facility] [place] [address] Josue Guerra MD [address] [place] [address] Monitored, Cardiac Rehab Subj: Appointment Scheduled 02/15/2025 9:30 AM CDT Appointment [facility] [address] [place] [address] Josue Guerra MD [address] [place] [address] Subj: Appointment Scheduled 02/17/2025 8:30 AM CDT Appointment [facility] [address] [facility] [place] [address] Josue Guerra MD [address] [place] [address] Monitored, Cardiac Rehab Subj: Appointment Scheduled 02/17/2025 9:30 AM CDT Appointment [facility] [address] [place] [address], [place] [address] Josue Guerra MD [address] [place] [address] Subj: Appointment Scheduled 02/22/2025 8:30 AM CDT Appointment [facility] [address] [place] [address], [place] [address] Josue Guerra MD [address] [place] [address] Monitored, Cardiac Rehab Subj: Appointment Scheduled 02/22/2025 9:30 AM CDT Appointment [facility] [address] [place] [place] [address], [place] [address] [place] [address] [place] [address], [place] [address] Subj: Appointment Scheduled 02/24/2025 8:30 AM CDT Appointment [facility] [address] [place] [address], [place] [address] [place] [address] [place] [address], [place] [address] Monitored, Cardiac Rehab Subj: Appointment Scheduled 02/24/2025 9:30 AM CDT Appointment [facility] [address] [place] [address], [place] [address] [place] [address] [place] [address], [place] [address] Subj: Appointment Scheduled 03/01/2025 8:30 AM CDT Appointment [facility] [address] [place] [place] [address], [place] [address] Josue Guerra MD [address] [place] [address] Monitored, Cardiac Rehab Subj: Appointment Scheduled 03/01/2025 9:30 AM CDT Appointment [facility] [address] [place] [address], [place] [address] [place] [address] [place] [address], [place] [address] Subj: Appointment Scheduled 03/03/2025 8:30 AM CDT Appointment [facility] [address] [place] [address], [place] [address] [place] [address] [place] [address], [place] [address] Monitored, Cardiac Rehab Subj: Appointment Scheduled 03/03/2025 9:30 AM CDT Appointment [facility] [address] [place] [address], [place] [address] Josue Guerra MD [address] [place] [address] Subj: Appointment Scheduled 03/08/2025 8:30 AM CDT Appointment [facility] [address] [place] [address], [place] [address] [place] [address] [place] [address], [place] [address] Monitored, Cardiac Rehab Subj: Appointment Scheduled 03/08/2025 9:30 AM CDT Appointment [facility] [address] [place] [facility] [place] [address] Josue Guerra MD [address] [place] [place] [address] Subj: Appointment Scheduled 03/10/2025 8:30 AM CDT Appointment [facility] [address] [facility] [place] [address] Josue Guerra MD [address] [place] [address] Monitored, Cardiac Rehab Subj: Appointment Scheduled 03/10/2025 9:30 AM CDT Appointment [facility] [address] [facility] [place] [address] Josue Guerra MD [address] [place] [address] Subj: Appointment Scheduled 03/15/2025 8:30 AM CDT Appointment [facility] [address] [facility] [place] [address] Josue Guerra MD [address] [place] [address] Monitored, Cardiac Rehab Subj: Appointment Scheduled 03/15/2025 9:30 AM CDT Appointment [facility] [address] [facility] [place] [address] Josue Guerra MD [address] [facility] [place] [address] Subj: Appointment Scheduled documented as of this encounter Visit Diagnoses Not on filedocumented in this encounter Care Teams Tray Room Worker Relationship Specialty Start Date End Date Cornelia Torres APRN,TONY [address] [place] [phone] PCP - General Nurse Practitioner Family 11/14/21 Jadon Pelletier MD 06/23/17 Armando Restrepo MD [place] 06/23/17 Jadon Rossi MD [address] [place] [address] Internal Medicine Cardiovascular Disease 01/11/21 Patricia Babb APRN,TONY [address] [place] [address] Heart Failure Team Nurse Practitioner 03/13/21 Cecilia Crenshaw MD [address] [place] [address] Internal Medicine - Nephrology 07/23/24 Sal Rascon MD [address] [place] [address] Cardiology-Interventional 10/31/24 documented as of this encounter Additional Source Comments PLEASE NOTE: Replies to this message will not be received.[facility]
--- OUTSIDE RECORDS SUMMARY | 2024-12-09 08:16 | XMS_ITS | Encounter Summary ---
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 Role Phone Jadon Pelletier MD Unavailable Unavaila Armando Basurto MD Unavailable Jadon Rossi MD Unavailable Patricia Babb MOTORCYCLE RACER,[facility] Unavailable + Cornelia Torres MOTORCYCLE RACER,[facility] Primary Care Provider + Cecilia Crenshaw MD Unavailabl e Sal Rascon MD Unavailable [phone] Reason for Visit * Cardiac Rehab (Routine) - Authorized Specialty Diagnoses / Procedures Referred By Contac t Referred To Contact Cardiology Diagnoses ST elevation myocardial infarction involving left anterior descending (LAD) coronary artery (HCC) Josue Guerra MD [address] [place] [phone] Phone: tel: fax: [facility] [address] [place] [address] Phone: tel: fax: Referral ID Status Reason Start Date Expiration Date V isits Requested Visits Authorized [id number] Authorized 10/29/2024 11/28/2025 72 72 Encounter Details Date Type Department Care Team (Latest Contact Info) Description 12/09/2024 8:16 AM CDT - 12/09/2024 11:59 PM CDT Hospital Encounter [facility] [address] [place] [address] Josue Guerra MD [address] [place] [phone] Monitored, Cardiac Rehab Subj: Appointment Scheduled Discharge [...] from your doctor or pharmacy? Never 03/17/2024 [employer] Answer Date Recorded In the past 12 months has e [employer], oil, or water [employer] threatened to shut off services in your [...] often do you attend chur ch or religion services? Never 03/17/2024 Do you belong to any clubs o r organizations such as scientologist groups, unions, fraternal or athletic groups, or [...] care, and heating? Not very hard 03/17/2024 [facility] - [...] time in the past 12 m [facility], were you homeless or living in a usp (including now)? No 10/29/2024 Housing Stability Answer [...] time in the past 12 m [facility], were you homeless or living in a usp (including now)? 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 60 Tablet 10/31/2024 12:46 PM CDT 10/31/2024 5 documented as of this encounter Miscellaneous Notes * Multidisciplinary Note - Himanshu Pimentel - 12/09/2024 9:41 AM CDT Post-Session Comments:Supervising Physician: Ramses Azul MD. Per patient, no medication changes since last visit. Per patient, medications taken as prescribed. RESPONSE: Patient tolerated exercise session well with no complaints. RESPONSE: HR and BP responses to exercise were appropriate. RHYTHM: Sinus rhythm with no ectopy, no ST changes noted.UNITS CHARGED: Exercise session - 4 (60 minutes).PRITIKIN EDUCATION: CS03 Soup & Salad 1 (60 Minutes) UNITS CHARGED: Education -1 documented in this encounter Plan of Treatment Upcoming Encounters Date Type Department Care Team (Late st Contact Info) Description 01/04/2025 8:30 AM CDT Appointment [facility] [address] [place] [id number] Josue Guerra MD [address] [place] [phone] Monitored, Cardiac Rehab Subj: Appointment Scheduled 01/04/2025 9:30 AM CDT Appointment [facility] [address] [place] [address] [place] [address] [place] [phone] Subj: Appointment Scheduled 01/06/2025 8:30 AM CDT Appointment [facility] [address] [place] [phone] Josue Guerra MD [address] [place] [phone] Monitored, Cardiac Rehab Subj: Appointment Scheduled 01/06/2025 9:30 AM CDT Appointment [facility] [address] [facility] [place] [address] Josue Guerra MD [address] [facility] [place] [address] Subj: Appointment Scheduled 01/11/2025 8:30 AM CDT Appointment [facility] [address] [facility] [place] [address] Josue Guerra MD [address] [facility] [place] [address] Monitored, Cardiac Rehab Subj: Appointment Scheduled 01/11/2025 9:30 AM CDT Appointment [facility] [address] [facility] [place] [address] Josue Guerra MD [address] [facility] [place] [address] Subj: Appointment Scheduled 01/13/2025 8:30 AM CDT Appointment [facility] [address] [facility] [place] [address] Josue Guerra MD [address] [facility] [place] [address] Monitored, Cardiac Rehab Subj: Appointment Scheduled 01/13/2025 9:30 AM CDT Appointment [facility] [address] [place] [address], [place] [address] Josue Guerra MD [address] [facility] [place] [address] Subj: Appointment Scheduled 01/18/2025 8:30 AM CDT Appointment [facility] [address] [facility] [place] [address] Josue Guerra MD [address] [facility] [place] [address] Monitored, Cardiac Rehab Subj: Appointment Scheduled 01/18/2025 9:30 AM CDT Appointment [facility] [address] [place] [address], [place] [address] Josue Guerra MD [address] [facility] [place] [address] Subj: Appointment Scheduled 01/20/2025 8:30 AM CDT Appointment [facility] [address] [place] [address], [place] [address] Josue Guerra MD [address] [facility] [place] [address] Monitored, Cardiac Rehab Subj: Appointment Scheduled 01/20/2025 9:30 AM CDT Appointment [facility] [address] [place] [address], [place] [address] Josue Guerra MD [address] [facility] [place] [address] Subj: Appointment Scheduled 01/25/2025 8:30 AM CDT Appointment [facility] [address] [place] [address], [place] [address] Josue Guerra MD [address] [facility] [place] [address] Monitored, Cardiac Rehab Subj: Appointment Scheduled 01/25/2025 9:30 AM CDT Appointment [facility] [address] [place] [address], [place] [address] Josue Guerra MD [address] [facility] [place] [address] Subj: Appointment Scheduled 01/27/2025 8:30 AM CDT Appointment [facility] [address] [place] [address], [place] [address] [place] [address] [place] [address], [place] [address] Monitored, Cardiac Rehab Subj: Appointment Scheduled 01/27/2025 9:30 AM CDT Appointment [facility] [address] [place] [address], [place] [address] Josue Guerra MD [address] [facility] [place] [address] Subj: Appointment Scheduled 02/01/2025 8:30 AM CDT Appointment [facility] [address] [place] [address], [place] [address] Josue Guerra MD [address] [facility] [place] [address] Monitored, Cardiac Rehab Subj: Appointment Scheduled 02/01/2025 9:30 AM CDT Appointment [facility] [address] [facility] [place] [address] Josue Guerra MD [address] [facility] [place] [address] Subj: Appointment Scheduled 02/03/2025 8:30 AM CDT Appointment [facility] [address] [facility] [place] [address] Josue Guerra MD [address] [facility] [place] [phone] Monitored, Cardiac Rehab Subj: Appointment Scheduled 02/03/2025 9:30 AM CDT Appointment [facility] [address] [facility] [place] [address] Josue Guerra MD [address] [facility] [place] [address] Subj: Appointment Scheduled 02/08/2025 8:30 AM CDT Appointment [facility] [address] [facility] [place] [address] Josue Guerra MD [address] [facility] [place] [address] Monitored, Cardiac Rehab Subj: Appointment Scheduled 02/08/2025 9:30 AM CDT Appointment [facility] [address] [facility] [place] [address] Josue Guerra MD [address] [facility] [place] [address] Subj: Appointment Scheduled 02/10/2025 8:30 AM CDT Appointment [facility] [address] [facility] [place] [address] Josue Guerra MD [address] [facility] [place] [address] Monitored, Cardiac Rehab Subj: Appointment Scheduled 02/10/2025 9:30 AM CDT Appointment [facility] [address] [facility] [place] [address] Josue Guerra MD [address] [facility] [place] [address] Subj: Appointment Scheduled 02/15/2025 8:30 AM CDT Appointment [facility] [address] [facility] [place] [address] Josue Guerra MD [address] [facility] [place] [address] Monitored, Cardiac Rehab Subj: Appointment Scheduled 02/15/2025 9:30 AM CDT Appointment [facility] [address] [facility] [place] [address] Josue Guerra MD [address] [facility] [place] [address] Subj: Appointment Scheduled 02/17/2025 8:30 AM CDT Appointment [facility] [address] [place] [address], [place] [address] Josue Guerra MD [address] [facility] [place] [address] Monitored, Cardiac Rehab Subj: Appointment Scheduled 02/17/2025 9:30 AM CDT Appointment [facility] [address] [place] [address], [place] [address] [place] [address] [place] [address], [place] [address] Subj: Appointment Scheduled 02/22/2025 8:30 AM CDT Appointment [facility] [address] [place] [address], [place] [address] [place] [address] [place] [address], [place] [address] Monitored, Cardiac Rehab Subj: Appointment Scheduled 02/22/2025 9:30 AM CDT Appointment [facility] [address] [place] [address], [place] [address] Josue Guerra MD [address] [facility] [place] [address] Subj: Appointment Scheduled 02/24/2025 8:30 AM CDT Appointment [facility] [address] [place] [address], [place] [address] Josue Guerra MD [address] [facility] [place] [address] Monitored, Cardiac Rehab Subj: Appointment Scheduled 02/24/2025 9:30 AM CDT Appointment [facility] [address] [facility] [place] [address] Josue Guerra MD [address] [facility] [place] [address] Subj: Appointment Scheduled 03/01/2025 8:30 AM CDT Appointment [facility] [address] [facility] [place] [address] Josue Guerra MD [address] [facility] [place] [address] Monitored, Cardiac Rehab Subj: Appointment Scheduled 03/01/2025 9:30 AM CDT Appointment [facility] [address] [place] [address], [place] [address] Josue Guerra MD [address] [facility] [place] [address] Subj: Appointment Scheduled 03/03/2025 8:30 AM CDT Appointment [facility] [address] [facility] [place] [address] Josue Guerra MD [address] [facility] [place] [address] Monitored, Cardiac Rehab Subj: Appointment Scheduled 03/03/2025 9:30 AM CDT Appointment [facility] [address] [place] [address], [place] [address] Josue Guerra MD [address] [facility] [place] [address] Subj: Appointment Scheduled 03/08/2025 8:30 AM CDT Appointment [facility] [address] [facility] [place] [address] Josue Guerra MD [address] [facility] [place] [address] Monitored, Cardiac Rehab Subj: Appointment Scheduled 03/08/2025 9:30 AM CDT Appointment [facility] [address] [facility] [place] [address] Josue Guerra MD [address] [facility] [place] [address] Subj: Appointment Scheduled 03/10/2025 8:30 AM CDT Appointment [facility] [address] [facility] [place] [address] Josue Guerra MD [address] [facility] [place] [phone] Monitored, Cardiac Rehab Subj: Appointment Scheduled 03/10/2025 9:30 AM CDT Appointment [facility] [address] [facility] [place] [address] Josue Guerra MD [address] [facility] [place] [address] Subj: Appointment Scheduled 03/15/2025 8:30 AM CDT Appointment [facility] [address] [facility] [place] [address] Josue Guerra MD [address] [facility] [place] [address] Monitored, Cardiac Rehab Subj: Appointment Scheduled 03/15/2025 9:30 AM CDT Appointment [facility] [address] [place] [address] Josue Guerra MD [address] [place] [address] Subj: Appointment Scheduled documented as of this encounter Visit Diagnoses Not on filedocumented in this encounter Care Teams [employer]fu[employer] 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 Relationship Specialty Start Date End Date Cornelia Torres APRN,GEOSPATIAL EXTRACTOR ANALYSIS [address] [place] [phone] PCP - General Nurse Practitioner Family 11/14/21 Jadon Pelletier MD 06/23/17 Armando Restrepo MD [place] 06/23/17 Jadon Rossi MD [address] [place] [address] Internal Medicine Cardiovascular Disease 01/11/21 Patricia Babb APRN,GEOSPATIAL EXTRACTOR ANALYSIS [address] [place] [address] Heart Failure Team Nurse Practitioner 03/13/21 Cecilia Crenshaw MD [address] [place] [address] Internal Medicine - Nephrology 07/23/24 Sal Rascon MD [address] [facility] [place] [address] Cardiology-Interventional 10/31/24 documented as of this encounter Additional Source Comments PLEASE NOTE: Replies to this message will not be received.[facility]
--- OUTSIDE RECORDS SUMMARY | 2024-12-09 13:00 | XMS_ITS | Encounter Summary ---
Author Organization [facility] Address [address] [place] [address] Care Team Providers Care Restaurant Cashier Name Role Phone Jadon Pelletier MD Unavailable Unavaila Armando Basurto MD Unavailable Jadon Rossi MD Unavailable [phone] Patricia Babb APRN,[facility] Unavailable + Cornelia Torres MICROBIOLOGY LAB ANALYST,[facility] Primary Care Provider + Cecilia Crenshaw MD Unavailabl e Sal Rascon MD Unavailable [phone] Reason for Visit * Reason Comments Follow up Encounter Details Date Type Department Care Team (Late st Contact Info) Description 12/09/2024 1:00 PM CDT Office Visit [facility] [address] [place] [address] Susanne Thomson, PAC [address] [place] [phone] Dx: Coronary artery disease involving [place]akaket coronary artery of [place] heart without angina pectoris (Primary Dx) Social History Tobacco Use Types Packs/Day Years Used Date Smoking Tobacco: Former Cigarettes 1 20 0 05/26/1980 - 05/26/2000 Smokeless Tobacco: Former Quit: 2004 Alcohol Use Standard Drinks/Week Comments No 0 (1 standard drink = 0.6 oz pur e alcohol) B1300 Health Literacy Answer Date Recor ded How often do you need to hav e someone help you when you read instructions, pamphlets, or other written material from your doctor or pharmacy? Never 03/17/2024 [facility] Utilities Answer Date Recorded In the past 12 months has e [facility], gas, oil, or water Miew threatened to shut off services in your [...] often do you attend chur ch or rastafarian services? Never 03/17/2024 Do you belong to any clubs o r organizations such as jain groups, unions, fraternal or athletic groups, or [...] care, and heating? Not very hard 03/17/2024 [facility] [place] [facility] - Occupational Stress [...] any time in the past 12 m [facility], were you homeless or living in a chcf (including now)? No 10/29/2024 Housing Stability Answer [...] any time in the past 12 m [facility], were you homeless or living in a chcf (including now)? 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 Answer Date of Assessment Author No 10/29/2024 11:00 PM CDT Mine Siegel RN * Are you blind or do you have serious difficulty seeing, even when wearing glasses? Answer Date of Assessment Author No 10/29/2024 11:00 PM SUSIET Mine Siegel RN * Do you have serious difficulty walking or climbing stairs? Answer Date of Assessment Author No 10/29/2024 11:00 PM Mine Ibanez RN * Do you have difficulty dressing or bathing? Answer Date of Assessment Author No 10/29/2024 11:00 PM SUSIET Mine Siegel RN * Do you have difficulty doing [...] Mine Ibanez RN documented in this encounter Progress Notes * Susanne Thomson PAC - 12/09/2024 1:00 PM CDT CARDIOLOGY CLINIC PROGRESS NOTE Patient: Ankur Cardenas Age/Sex: 69 Y male Date seen: 12/09/2024 Primary Provider: Cornelia Torres APRN,CLERK TYPIST Cardiology DORY: GEMA Clemons CHIEF COMPLAINT - REASON FOR VISIT Ankur Cardenas presents for follow-up of NSTEMI HISTORY Ankur Cardenas is a pleasant 69 Y old with history significant for coronary artery disease status post PCI of first OM in setting of lateral wall ID in December 2020, diabetes mellitus type 2, hypertension and hyperlipidemia. He presented on 10/29/2024 with sharp anterior chest pain. ECG abnormal with hyperacute T waves. Due to ongoing chest discomfort he was transferred via STEMI protocol and takendirectly to the Dock [facility]. Coronary angiography revealed occluded mid LAD with mild nonobstructive disease elsewhere. He underwent successful PCI with placement of a 2.5 x 26 mm [place] drug-eluting stent. Echocardiogram showed ischemic cardiomyopathy with LVEF 40 to 45% with abnormal wall motion with akinesis of the distal anterior, anteroseptal and apical wall segments, severe hypokinesis of the mid anterior and inferior septal wall segments, borderline aortic stenosis, mild MR. GDMT limited due to hypotension. Tariq presents today for follow-up. He is doing very well. Denies any chest discomfort, shortness ofbreath, orthopnea, PND, lower extremity edema. No lightheadedness or dizziness. Has no concerns. Isparticipate in cardiac rehab. REVIEW OF SYSTEMS 10 point review of systems complete and other than above, is negative. MEDICATIONS aspirin (CHILDREN'S ASPIRIN) 81 mg oral Tablet, Chewable Chew and Swallow 1 Tablet (81 mg) by mouthonce daily. atorvastatin (LIPITOR) 80 mg oral Tablet Take 1 Tablet (80 mg) by mouth at bedtime. carvediloL (COREG) 6.25 mg oral Tablet Take 1 Tablet (6.25 mg) by mouth in the morning and 1 Tablet(6.25 mg) in the evening. cetirizine (AKA: ZYRTEC) 10 mg oral Tablet Take 1 Tablet (10 mg) by mouth in the morning. cholecalciferol (VITAMIN D3) 5,000 unit oral Tablet Take 1 Tablet (5,000 Units) by mouth in the morning. empagliflozin (JARDIANCE) 10 mg oral Tablet Take 1 Tablet (10 mg) by mouth in the morning. (Patientnot taking: Reported on 12/09/2024) fluticasone propionate (FLOVENT HFA) 110 mcg/actuation inhalation HFA Aerosol Inhaler 2 Puffs by inhalation route in the morning and 2 Puffs in the evening. nitroglycerin (NITROSTAT) 0.4 mg sublingual Tablet, Sublingual DISSOLVE 1 TABLET UNDER TONGUE NEEDED FOR CHEST PAIN MAY REPEAT EVERY 5 MINUTES FOR A MAXIMUM OF 3 DOSES other (unlisted) Cellergize by Life Wave pantoprazole (PROTONIX) 40 mg oral Tablet, Delayed Release (E.C.) Take 1 Tablet (40 mg) by mouth atbedtime. PAP MACHINE Equipment Prescribed: Autopap, 5-15 cm H20. Estimated Length of Need: 99 months (99 = Lifetime). May change the size or style of mask, headgear, or spacers to help patient comfort and compliance. PARoxetine (PAXIL) 10 mg oral Tablet Take 1 Tablet (10 mg) by mouth in the morning. prasugreL HCl (EFFIENT) 10 mg oral Tablet Take 1 Tablet (10 mg) by mouth in the morning. PHYSICAL EXAM BP 118/75 (BP Source: R arm, BP position: Sitting) Pulse 65 Ht 177.8 cm (70) Wt 222 lb (100.7 kg) SpO2 96% BMI 31.85 kg/m?? VITALS: Reviewed as above. GENERAL: NAD, A&O x3 SKIN: Warm, dry, without jaundice. No rashes or any obvious lesions HEENT: Head: atruamatic, normocephalic. Eyes: sclera are non-icteric. NECK: no JVD. HEART: Regular rate and rhythm with normal S1, S2, no murmurs, rubs or gallops LUNGS: Breathing is non-labored. Lungs clear to auscultation bilaterally. EXTREMITIES: No clubbing, cyanosis, or lower extremity edema bilaterally. NEUROLOGIC: Grossly nonfocal, moving all 4 extremities ASSESSMENT Encounter Diagnoses Name Primary? Coronary artery disease involving [place]aket coronary artery of [place]akaket heart without angina pectoris Yes Dyslipidemia Primary hypertension Ischemic cardiomyopathy PLAN/RECOMMENDATIONS Ankur Cardenas is a pleasant [address] Payton who presents for routine follow-up. Coronary artery disease status post PCI of OM in 2020 now status post PCI of mid LAD 10/29/2024 in setting of anterior ST elevation ID. Doing well without anginal concerns. Encouraged to continue with cardiac rehab. He will continue on aspirin 81 mg daily and Effient 10 mg daily for 1 year uninterrupted DAPT followed by Plavix monotherapy. Ischemic cardiomyopathy with LVEF 40 to 45%. Current GDMT includes Coreg 6.25 mg twice daily. Jardiance was not covered so he has not been taking. Unable to tolerate lisinopril due to cough. Unable to add further GDMT due to hypotension. Will plan to reassess LVEF at 3 months. If EF remains low will see if we can get Jardiance covered for him and to further determine ability to add GDMT. Hypertension. Blood pressure well-controlled on exam today. Dyslipidemia. Last lipid panel from 09/10/2024 with LDL 75. Now on atorvastatin 80 mg nightly. Plan to recheck lipid panel at 3 months. If remains above goal of less than 55, recommend addition of Zetia 10 mg daily. We will plan to see patient back in 3 months with repeat echocardiogram and lipid panel. Susanne Thomson, PAC documented in this encounter Plan of Treatment Upcoming Encounters Date Type Department Care Team (Late st Contact Info) Description 01/04/2025 8:30 AM CDT Appointment [facility] [address] [place] [address], [place] [id number] Josue Guerra MD [address] [facility] [place] [address] Monitored, Cardiac Rehab Subj: Appointment Scheduled 01/04/2025 9:30 AM CDT Appointment [facility] [address] [place] [address], [place] [id number] [place] [address] [place] [address], [place] [address] Subj: Appointment Scheduled 01/06/2025 8:30 AM CDT Appointment [facility] [address] [place] [address], [place] [address] [place] [address] [place] [address], [place] [address] Monitored, Cardiac Rehab Subj: Appointment Scheduled 01/06/2025 9:30 AM CDT Appointment [facility] [address] [place] [address], [place] [address] [place] [address] [place] [address], [place] [address] Subj: Appointment Scheduled 01/11/2025 8:30 AM CDT Appointment [facility] [address] [facility] [place] [address] Josue Guerra MD [address] [facility] [place] [address] Monitored, Cardiac Rehab Subj: Appointment Scheduled 01/11/2025 9:30 AM CDT Appointment [facility] [address] [place] [address], [place] [address] Josue Guerra MD [address] [facility] [place] [address] Subj: Appointment Scheduled 01/13/2025 8:30 AM CDT Appointment [facility] [address] [place] [address], [place] [address] Josue Guerra MD [address] [facility] [place] [address] Monitored, Cardiac Rehab Subj: Appointment Scheduled 01/13/2025 9:30 AM CDT Appointment [facility] [address] [place] [address], [place] [address] Josue Guerra MD [address] [facility] [place] [address] Subj: Appointment Scheduled 01/18/2025 8:30 AM CDT Appointment [facility] [address] [place] [address], [place] [address] Josue Guerra MD [address] [facility] [place] [address] Monitored, Cardiac Rehab Subj: Appointment Scheduled 01/18/2025 9:30 AM CDT Appointment [facility] [address] [facility] [address] Josue Guerra MD [address] [facility] [place] [address] Subj: Appointment Scheduled 01/20/2025 8:30 AM CDT Appointment [facility] [address] [facility] [place] [address] Josue Guerra MD [address] [facility] [place] [address] Monitored, Cardiac Rehab Subj: Appointment Scheduled 01/20/2025 9:30 AM CDT Appointment [facility] [address] [facility], [place] [phone] Josue Guerra MD [address] [facility] [place] [address] Subj: Appointment Scheduled 01/25/2025 8:30 AM CDT Appointment [facility] [address] [facility] [place] [address] Josue Guerra MD [address] [facility] [place] [address] Monitored, Cardiac Rehab Subj: Appointment Scheduled 01/25/2025 9:30 AM CDT Appointment [facility] [address] [facility] [place] [address] Josue Guerra MD [address] [facility] [place] [address] Subj: Appointment Scheduled 01/27/2025 8:30 AM CDT Appointment [facility] [address] [place] [address] Josue Guerra MD [address] [facility] [place] [address] Monitored, Cardiac Rehab Subj: Appointment Scheduled 01/27/2025 9:30 AM CDT Appointment [facility] [address] [place] [address], [place] [address] [place] [address] [place] [phone] Subj: Appointment Scheduled 02/01/2025 8:30 AM CDT Appointment [facility] [address] [place] [address], [place] [address] Josue Guerra MD [address] [facility] [place] [address] Monitored, Cardiac Rehab Subj: Appointment Scheduled 02/01/2025 9:30 AM CDT Appointment [facility] [address] [place] [address], [place] [address] Josue Guerra MD [address] [facility] [place] [address] Subj: Appointment Scheduled 02/03/2025 8:30 AM CDT Appointment [facility] [address] [place] [address], [place] [address] Josue Guerra MD [address] [facility] [place] [address] Monitored, Cardiac Rehab Subj: Appointment Scheduled 02/03/2025 9:30 AM CDT Appointment [facility] [address] [place] [address], [place] [address] [place] [address] [place] [address], [place] [address] Subj: Appointment Scheduled 02/08/2025 8:30 AM CDT Appointment [facility] [address] [place] [address], [place] [address] Josue Guerra MD [address] [facility] [place] [address] Monitored, Cardiac Rehab Subj: Appointment Scheduled 02/08/2025 9:30 AM CDT Appointment [facility] [address] [place] [address], [place] [address] Josue Guerra MD [address] [facility] [place] [address] Subj: Appointment Scheduled 02/10/2025 8:30 AM CDT Appointment [facility] [address] [place] [address], [place] [address] Josue Guerra MD [address] [facility] [place] [address] Monitored, Cardiac Rehab Subj: Appointment Scheduled 02/10/2025 9:30 AM CDT Appointment [facility] [address] [facility] [address] Josue Guerra MD [address] [facility] [place] [address] Subj: Appointment Scheduled 02/15/2025 8:30 AM CDT Appointment [facility] [address] [facility] [address] Josue Guerra MD [address] [facility] [place] [address] Monitored, Cardiac Rehab Subj: Appointment Scheduled 02/15/2025 9:30 AM CDT Appointment [facility] [address] [place] [address], [place] [address] Josue Guerra MD [address] [facility] [place] [address] Subj: Appointment Scheduled 02/17/2025 8:30 AM CDT Appointment [facility] [address] [place] [address], [place] [address] Josue Guerra MD [address] [facility] [place] [address] Monitored, Cardiac Rehab Subj: Appointment Scheduled 02/17/2025 9:30 AM CDT Appointment [facility] [address] [place] [address], [place] [address] Josue Guerra MD [address] [facility] [place] [address] Subj: Appointment Scheduled 02/22/2025 8:30 AM CDT Appointment [facility] [address] [facility] [place] [address] Josue Guerra MD [address] [place] [address] Monitored, Cardiac Rehab Subj: Appointment Scheduled 02/22/2025 9:30 AM CDT Appointment [facility] [address] [facility] [place] [address] Josue Guerra MD [address] [facility] [place] [address] Subj: Appointment Scheduled 02/24/2025 8:30 AM CDT Appointment [facility] [address] [facility] [address] Josue Guerra MD [address] [facility] [place] [address] Monitored, Cardiac Rehab Subj: Appointment Scheduled 02/24/2025 9:30 AM CDT Appointment [facility] [address] [facility] [place] [address] Josue Guerra MD [address] [facility] [place] [address] Subj: Appointment Scheduled 03/01/2025 8:30 AM CDT Appointment [facility] [address] [facility] [place] [address] Josue Guerra MD [address] [facility] [place] [address] Monitored, Cardiac Rehab Subj: Appointment Scheduled 03/01/2025 9:30 AM CDT Appointment [facility] [address] [place] [address], [place] [address] Josue Guerra MD [address] [facility] [place] [address] Subj: Appointment Scheduled 03/03/2025 8:30 AM CDT Appointment [facility] [address] [place] [address], [place] [address] [place] [address] [place] [address], [place] [address] Monitored, Cardiac Rehab Subj: Appointment Scheduled 03/03/2025 9:30 AM CDT Appointment [facility] [address] [place] [address], [place] [address] Josue Guerra MD [address] [facility] [place] [address] Subj: Appointment Scheduled 03/08/2025 8:30 AM CDT Appointment [facility] [address] [place] [address], [place] [address] Josue Guerra MD [address] [facility] [place] [address] Monitored, Cardiac Rehab Subj: Appointment Scheduled 03/08/2025 9:30 AM CDT Appointment [facility] [address] [facility] [address] Josue Guerra MD [address] [facility] [place] [address] Subj: Appointment Scheduled 03/10/2025 8:30 AM CDT Appointment [facility] [address] [place] [address], [place] [address] [place] [address] [place] [address], [place] [address] Monitored, Cardiac Rehab Subj: Appointment Scheduled 03/10/2025 9:30 AM CDT Appointment [facility] [address] [place] [address], [place] [address] [place] [address] [place] [address], [place] [address] Subj: Appointment Scheduled 03/15/2025 8:30 AM CDT Appointment [facility] [address] [place] [address], [place] [address] Josue Guerra MD [address] [facility] [place] [address] Monitored, Cardiac Rehab Subj: Appointment Scheduled 03/15/2025 9:30 AM CDT Appointment [facility] [address] [place] [address], [place] [address] Josue Guerra MD [address] [facility] [place] [address] Subj: Appointment Scheduled documented as of this encounter Visit Diagnoses Diagnosis Coronary artery disease involving allakaket coronary artery of [place]et heart without angina pectoris- Primary Dyslipidemia Other and unspecified hyperlipidemia Primary hypertension Unspecified essential hypertension Ischemic cardiomyopathy Other specified forms of chronic ischemic heart disease documented in this encounter Care Teams Restaurant Cashier Relationship Specialty Start Date End Date Cornelia Torres ADRIAN Pascal,CLERK TYPIST [address] [place] [phone] PCP - General Nurse Practitioner Family 11/14/21 Jadon Pelletier MD 06/23/17 Armando Restrepo MD [place] 06/23/17 Jadon Rossi MD [address] [place] [place] [place] [address] Internal Medicine Cardiovascular Disease 01/11/21 Patricia Babb APRN,CLERK TYPIST [address] [place] [place] [place] [address] Heart Failure Team Nurse Practitioner 03/13/21 Cecilia Crenshaw MD [address] [place] [place] [place] [address] Internal Medicine - Nephrology 07/23/24 Sal Rascon MD [address] [place] [place] [address] Cardiology-Interventional 10/31/24 documented as of this encounter Additional Source Comments PLEASE NOTE: Replies to this message will not be received.[facility]
--- OUTSIDE RECORDS SUMMARY | 2024-12-14 08:15 | XMS_ITS | Encounter Summary ---
Author Organization [facility] [employer] [facility] Address [address] [place] [address] Care Team Providers Care Dye Room Helper Name Role Phone Jadon Pelletier MD Unavailable Unavaila Armando Basurto MD Unavailable Jadon Rossi MD Unavailable [phone] Patricia Babb FACER OPERATOR,[facility] Unavailable + Cornelia Torres FACER OPERATOR,[facility] Primary Care Provider + Cecilia Crenshaw MD Unavailabl e Sal Rascon MD Unavailable [phone] Reason for Visit * Cardiac Rehab (Routine) - Authorized Specialty Diagnoses / Procedures Referred By Contac t Referred To Contact Cardiology Diagnoses ST elevation myocardial infarction involving left anterior descending (LAD) coronary artery (HCC) Josue Guerra MD [address] [place] [phone] Phone: tel: fax: [facility] [address] [place] [address] Phone: tel: fax: Referral ID Status Reason Start Date Expiration Date V isits Requested Visits Authorized [id number] Authorized 10/29/2024 11/28/2025 72 72 Encounter Details Date Type Department Care Team (Latest Contact Info) Description 12/14/2024 8:15 AM CDT - 12/14/2024 11:59 PM CDT Hospital Encounter [facility] [address] [place] [address] Josue Guerra MD [address] [place] [phone] Monitored, Cardiac Rehab Subj: Appointment Scheduled Discharge [...] from your doctor or pharmacy? Never 03/17/2024 [employer] Answer Date Recorded In the past 12 months has e [employer], oil, or water [employer] threatened to shut off services in your [...] often do you attend chur ch or yazidism services? Never 03/17/2024 Do you belong to any clubs o r organizations such as judaism groups, unions, fraternal or athletic groups, or [...] care, and heating? 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 Per patient, no medication changes since last visit. Per patient, medications taken as prescribed. RESPONSE: Patient tolerated exercise session well with no complaints. RESPONSE: HR and BP responses to exercise were appropriate. RHYTHM: Sinus rhythm with no ectopy, no ST changes noted. UNITS CHARGED: Exercise session - 4 (60 minutes).PRITIKIN EDUCATION: PH Medication and the Power of Lifestyle (60 Minutes) UNITS CHARGED: Education -1 documented in this encounter Plan of Treatment Upcoming Encounters Date Type Department Care Team (Late st Contact Info) Description 01/04/2025 8:30 AM CDT Appointment [facility] [address] [place] [id number] [place] [address] [place] [phone] Monitored, Cardiac Rehab Subj: Appointment Scheduled 01/04/2025 9:30 AM CDT Appointment [facility] [address] [place] [address] [place] [address] [place] [phone] Subj: Appointment Scheduled 01/06/2025 8:30 AM CDT Appointment [facility] [address] [place] [address] Josue Guerra MD [address] [place] [phone] Monitored, Cardiac Rehab Subj: Appointment Scheduled 01/06/2025 9:30 AM CDT Appointment [facility] [address] [place] [address] Josue Guerra MD [address] [place] [address] Subj: Appointment Scheduled 01/11/2025 8:30 AM CDT Appointment [facility] [address] [facility] [place] [address] Josue Guerra MD [address] [place] [address] Monitored, Cardiac Rehab Subj: Appointment Scheduled 01/11/2025 9:30 AM CDT Appointment [facility] [address] [place] [address] Josue Guerra MD [address] [place] [address] Subj: Appointment Scheduled 01/13/2025 8:30 AM CDT Appointment [facility] [address] [place] [address] Josue Guerra MD [address] [place] [address] Monitored, Cardiac Rehab Subj: Appointment Scheduled 01/13/2025 9:30 AM CDT Appointment [facility] [address] [place] [address], [place] [address] Josue Guerra MD [address] [place] [address] Subj: Appointment Scheduled 01/18/2025 8:30 AM CDT Appointment [facility] [address] [place] [address], [place] [address] Josue Guerra MD [address] [place] [address] Monitored, Cardiac Rehab Subj: Appointment Scheduled 01/18/2025 9:30 AM CDT Appointment [facility] [address] [place] [address], [place] [id number] Josue Guerra MD [address] [place] [address] Subj: Appointment Scheduled 01/20/2025 8:30 AM CDT Appointment [facility] [address] [place] [address], [place] [address] Josue Guerra MD [address] [place] [address] Monitored, Cardiac Rehab Subj: Appointment Scheduled 01/20/2025 9:30 AM CDT Appointment [facility] [address] [place] [address], [place] [address] Josue Guerra MD [address] [place] [address] Subj: Appointment Scheduled 01/25/2025 8:30 AM CDT Appointment [facility] [address] [place] [address], [place] [address] Josue Guerra MD [address] [place] [address] Monitored, Cardiac Rehab Subj: Appointment Scheduled 01/25/2025 9:30 AM CDT Appointment [facility] [address] [place] [address], [place] [address] Josue Guerra MD [address] [place] [address] Subj: Appointment Scheduled 01/27/2025 8:30 AM CDT Appointment [facility] [address] [place] [address], [place] [address] Josue Guerra MD [address] [place] [address] Monitored, Cardiac Rehab Subj: Appointment Scheduled 01/27/2025 9:30 AM CDT Appointment [facility] [address] [place] [address], [place] [address] Josue Guerra MD [address] [place] [address] Subj: Appointment Scheduled 02/01/2025 8:30 AM CDT Appointment [facility] [address] [place] [address], [place] [address] Josue Guerra MD [address] [place] [address] Monitored, Cardiac Rehab Subj: Appointment Scheduled 02/01/2025 9:30 AM CDT Appointment [facility] [address] [facility] [place] [address] Josue Guerra MD [address] [place] [address] Subj: Appointment Scheduled 02/03/2025 8:30 AM CDT Appointment [facility] [address] [place] [address] Josue Guerra MD [address] [place] [address] Monitored, Cardiac Rehab Subj: Appointment Scheduled 02/03/2025 9:30 AM CDT Appointment [facility] [address] [facility] [place] [address] Josue Guerra MD [address] [place] [address] Subj: Appointment Scheduled 02/08/2025 8:30 AM CDT Appointment [facility] [address] [facility] [place] [address] Josue Guerra MD [address] [place] [address] Monitored, Cardiac Rehab Subj: Appointment Scheduled 02/08/2025 9:30 AM CDT Appointment [facility] [address] [facility] [place] [address] Josue Guerra MD [address] [place] [address] Subj: Appointment Scheduled 02/10/2025 8:30 AM CDT Appointment [facility] [address] [place] [address] Josue Guerra MD [address] [place] [address] Monitored, Cardiac Rehab Subj: Appointment Scheduled 02/10/2025 9:30 AM CDT Appointment [facility] [address] [place] [address] Josue Guerra MD [address] [place] [address] Subj: Appointment Scheduled 02/15/2025 8:30 AM CDT Appointment [facility] [address] [place] [address] Josue Guerra MD [address] [place] [address] Monitored, Cardiac Rehab Subj: Appointment Scheduled 02/15/2025 9:30 AM CDT Appointment [facility] [address] [place] [address] Josue Guerra MD [address] [place] [address] Subj: Appointment Scheduled 02/17/2025 8:30 AM CDT Appointment [facility] [address] [place] [address], [place] [address] Josue Guerra MD [address] [place] [address] Monitored, Cardiac Rehab Subj: Appointment Scheduled 02/17/2025 9:30 AM CDT Appointment [facility] [address] [place] [address], [place] [address] [place] [address] [place] [address], [place] [address] Subj: Appointment Scheduled 02/22/2025 8:30 AM CDT Appointment [facility] [address] [place] [address], [place] [address] [place] [address] [place] [address], [place] [address] Monitored, Cardiac Rehab Subj: Appointment Scheduled 02/22/2025 9:30 AM CDT Appointment [facility] [address] [place] [address], [place] [address] [place] [address] [place] [address], [place] [address] Subj: Appointment Scheduled 02/24/2025 8:30 AM CDT Appointment [facility] [address] [place] [address], [place] [address] [place] [address] [place] [address], [place] [address] Monitored, Cardiac Rehab Subj: Appointment Scheduled 02/24/2025 9:30 AM CDT Appointment [facility] [address] [place] [address] Josue Guerra MD [address] [place] [address] Subj: Appointment Scheduled 03/01/2025 8:30 AM CDT Appointment [facility] [address] [facility] [place] [address] Josue Guerra MD [address] [place] [address] Monitored, Cardiac Rehab Subj: Appointment Scheduled 03/01/2025 9:30 AM CDT Appointment [facility] [address] [place] [address] Josue Guerra MD [address] [place] [address] Subj: Appointment Scheduled 03/03/2025 8:30 AM CDT Appointment [facility] [address] [place] [address] Josue Guerra MD [address] [place] [address] Monitored, Cardiac Rehab Subj: Appointment Scheduled 03/03/2025 9:30 AM CDT Appointment [facility] [address] [place] [address] Josue Guerra MD [address] [place] [address] Subj: Appointment Scheduled 03/08/2025 8:30 AM CDT Appointment [facility] [address] [place] [address] Josue Guerra MD [address] [place] [facility] [place] [address] Monitored, Cardiac Rehab Subj: Appointment Scheduled 03/08/2025 9:30 AM CDT Appointment [facility] [address] [facility] [place] [address] Josue Guerra MD [address] [facility] [place] [address] Subj: Appointment Scheduled 03/10/2025 8:30 AM CDT Appointment [facility] [address] [facility] [place] [address] Josue Guerra MD [address] [facility] [place] [address] Monitored, Cardiac Rehab Subj: Appointment Scheduled 03/10/2025 9:30 AM CDT Appointment [facility] [address] [place] [address] Josue Guerra MD [address] [facility] [address] Subj: Appointment Scheduled 03/15/2025 8:30 AM CDT Appointment [facility] [address] [place] [address] Josue Guerra MD [address] [place] [address] Monitored, Cardiac Rehab Subj: Appointment Scheduled 03/15/2025 9:30 AM CDT Appointment [facility] [address] [place] [address] Josue Guerra MD [address] [place] [address] Subj: Appointment Scheduled documented as of this encounter Visit Diagnoses Not on filedocumented in this encounter Care Teams Dye Room Helper Relationship Specialty Start Date End Date Cornelia Torres APRN,ELECTRIC POWER MACHINE OPERATOR [address] [place] [address] PCP - General Nurse Practitioner Family 11/14/21 Jadon Pelletier MD 06/23/17 Armando Restrepo MD [place] 06/23/17 Jadon Rossi MD [address] [place] [address] Internal Medicine Cardiovascular Disease 01/11/21 Patricia Babb APRN,ELECTRIC POWER MACHINE OPERATOR [address] [place] [address] Heart Failure Team Nurse Practitioner 03/13/21 Cecilia Crenshaw MD [address] [place] [address] Internal Medicine - Nephrology 07/23/24 Sal Rascon MD [address] [place] [address] Cardiology-Interventional 10/31/24 documented as of this encounter Additional Source Comments PLEASE NOTE: Replies to this message will not be received.[facility], 1928–1983
--- OUTSIDE RECORDS SUMMARY | 2024-12-21 08:11 | XMS_ITS | Encounter Summary ---
Author Organization [facility] Address [address] [place] [id number] Care Team Providers Care Ager Operator Name Role Phone Jadon Pelletier MD Unavailable Unavaila Armando Basurto MD Unavailable Jadon Rossi MD Unavailable Patricia Babb STOCK TRACER,[facility] Unavailable + Cornelia Torres STOCK TRACER,[facility] Primary Care Provider + Cecilia Crenshaw MD Unavailabl e Sal Rascon MD Unavailable [phone] Reason for Visit * Cardiac Rehab (Routine) - Authorized Specialty Diagnoses / Procedures Referred By Contac t Referred To Contact Cardiology Diagnoses ST elevation myocardial infarction involving left anterior descending (LAD) coronary artery (HCC) Josue Guerra MD [address] [place] [phone] Phone: tel: fax: [facility] [address] [place] [address] Phone: tel: fax: Referral ID Status Reason Start Date Expiration Date V isits Requested Visits Authorized [id number] Authorized 10/29/2024 11/28/2025 72 72 Encounter Details Date Type Department Care Team (Latest Contact Info) Description 12/21/2024 8:11 AM CDT - 12/21/2024 11:59 PM CDT Hospital Encounter [facility] [address] [place] [address] Josue Guerra MD [address] [place] [address] Monitored, Cardiac Rehab Subj: Questionnaire [...] from your doctor or pharmacy? Never 03/17/2024 FirmPlayities Answer Date Recorded In the past 12 months has e [employer] oil, or water [employer] threatened to shut off services in your [...] often do you attend chur ch or yarsani services? Never 03/17/2024 Do you belong to any clubs o r organizations such as yazdanism groups, unions, fraternal or athletic groups, or [...] and heating? Not very hard 03/17/2024 [facility] Occupat ional Health - Occupational Stress [...] any time in the past 12 m [facility], were you homeless or living in a senior living (including now)? No 10/29/2024 Housing Stability Answer [...] any time in the past 12 m [facility], were you homeless or living in a senior living (including now)? 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 Per patient, medications taken as prescribed. RESPONSE: Patient tolerated exercise session well with no complaints. RESPONSE: HR and BP responses to exercise were appropriate. RHYTHM: Sinus rhythm with no ectopy, no ST changes noted. UNITS CHARGED: Exercise session - 4 (60 minutes).PRITIKIN EDUCATION: HM4 Healthy Sleep for a Healthy Heart (60 Minutes) UNITS CHARGED: Education -1 documented in this encounter Plan of Treatment Upcoming Encounters Date Type Department Care Team (Late st Contact Info) Description 01/04/2025 8:30 AM CDT Appointment [facility] [address] [place] [address] Josue Guerra MD [address] [place] [phone] Monitored, Cardiac Rehab Subj: Appointment Scheduled 01/04/2025 9:30 AM CDT Appointment [facility] [address] [place] [address] [place] [address] [place] [phone] Subj: Appointment Scheduled 01/06/2025 8:30 AM CDT Appointment [facility] [address] [place] [address] Josue Guerra MD [address] [place] [phone] Monitored, Cardiac Rehab Subj: Appointment Scheduled 01/06/2025 9:30 AM CDT Appointment [facility] [address] [facility] [place] [address] Josue Guerra MD [address] [place] [address] Subj: Appointment Scheduled 01/11/2025 8:30 AM CDT Appointment [facility] [address] [place] [address] Josue Guerra MD [address] [place] [address] Monitored, Cardiac Rehab Subj: Appointment Scheduled 01/11/2025 9:30 AM CDT Appointment [facility] [address] [place] [address] Josue Guerra MD [address] [place] [address] Subj: Appointment Scheduled 01/13/2025 8:30 AM CDT Appointment [facility] [address] [place] [address] Josue Guerra MD [address] [place] [address] Monitored, Cardiac Rehab Subj: Appointment Scheduled 01/13/2025 9:30 AM CDT Appointment [facility] [address] [place] [address], [place] [address] Josue Guerra MD [address] [place] [address] Subj: Appointment Scheduled 01/18/2025 8:30 AM CDT Appointment [facility] [address] [place] [address], [place] [address] Josue Guerra MD [address] [place] [address] Monitored, Cardiac Rehab Subj: Appointment Scheduled 01/18/2025 9:30 AM CDT Appointment [facility] [address] [place] [address], [place] [id number] Josue Guerra MD [address] [place] [address] Subj: Appointment Scheduled 01/20/2025 8:30 AM CDT Appointment [facility] [address] [place] [address], [place] [address] Josue Guerra MD [address] [place] [address] Monitored, Cardiac Rehab Subj: Appointment Scheduled 01/20/2025 9:30 AM CDT Appointment [facility] [address] [place] [address], [place] [address] Josue Guerra MD [address] [place] [address] Subj: Appointment Scheduled 01/25/2025 8:30 AM CDT Appointment [facility] [address] [place] [address], [place] [address] Josue Guerra MD [address] [place] [address] Monitored, Cardiac Rehab Subj: Appointment Scheduled 01/25/2025 9:30 AM CDT Appointment [facility] [address] [place] [address], [place] [address] Josue Guerra MD [address] [place] [address] Subj: Appointment Scheduled 01/27/2025 8:30 AM CDT Appointment [facility] [address] [place] [address], [place] [address] Josue Guerra MD [address] [place] [address] Monitored, Cardiac Rehab Subj: Appointment Scheduled 01/27/2025 9:30 AM CDT Appointment [facility] [address] [place] [address], [place] [address] Josue Guerra MD [address] [place] [address] Subj: Appointment Scheduled 02/01/2025 8:30 AM CDT Appointment [facility] [address] [place] [address], [place] [address] Josue Guerra MD [address] [place] [address] Monitored, Cardiac Rehab Subj: Appointment Scheduled 02/01/2025 9:30 AM CDT Appointment [facility] [address] [facility] [place] [address] Josue Guerra MD [address] [place] [address] Subj: Appointment Scheduled 02/03/2025 8:30 AM CDT Appointment [facility] [address] [place] [address] Josue Guerra MD [address] [place] [address] Monitored, Cardiac Rehab Subj: Appointment Scheduled 02/03/2025 9:30 AM CDT Appointment [facility] [address] [place] [address] Josue Guerra MD [address] [place] [address] Subj: Appointment Scheduled 02/08/2025 8:30 AM CDT Appointment [facility] [address] [facility] [place] [address] Josue Guerra MD [address] [place] [address] Monitored, Cardiac Rehab Subj: Appointment Scheduled 02/08/2025 9:30 AM CDT Appointment [facility] [address] [facility] [place] [address] Josue Guerra MD [address] [place] [address] Subj: Appointment Scheduled 02/10/2025 8:30 AM CDT Appointment [facility] [address] [place] [place] [address] Josue Guerra MD [address] [facility] [facility] [place] [address] Monitored, Cardiac Rehab Subj: Appointment Scheduled 02/10/2025 9:30 AM CDT Appointment [facility] [address] [place] [address] Josue Guerra MD [address] [place] [address] Subj: Appointment Scheduled 02/15/2025 8:30 AM CDT Appointment [facility] [address] [place] [address] Josue Guerra MD [address] [place] [address] Monitored, Cardiac Rehab Subj: Appointment Scheduled 02/15/2025 9:30 AM CDT Appointment [facility] [address] [place] [address] Josue Guerra MD [address] [place] [address] Subj: Appointment Scheduled 02/17/2025 8:30 AM CDT Appointment [facility] [address] [place] [address], [place] [address] Josue Guerra MD [address] [place] [address] Monitored, Cardiac Rehab Subj: Appointment Scheduled 02/17/2025 9:30 AM CDT Appointment [facility] [address] [place] [address], [place] [address] [place] [address] [place] [address], [place] [address] Subj: Appointment Scheduled 02/22/2025 8:30 AM CDT Appointment [facility] [address] [place] [address], [place] [address] [place] [address] [place] [address], [place] [address] Monitored, Cardiac Rehab Subj: Appointment Scheduled 02/22/2025 9:30 AM CDT Appointment [facility] [address] [place] [address], [place] [address] [place] [address] [place] [address], [place] [address] Subj: Appointment Scheduled 02/24/2025 8:30 AM CDT Appointment [facility] [address] [place] [address], [place] [address] [place] [address] [place] [address], [place] [address] Monitored, Cardiac Rehab Subj: Appointment Scheduled 02/24/2025 9:30 AM CDT Appointment [facility] [address] [facility] [address] Josue Guerra MD [address] [place] [address] Subj: Appointment Scheduled 03/01/2025 8:30 AM CDT Appointment [facility] [address] [place] [address] Josue Guerra MD [address] [place] [address] Monitored, Cardiac Rehab Subj: Appointment Scheduled 03/01/2025 9:30 AM CDT Appointment [facility] [address] [place] [address] Josue Guerra MD [address] [place] [address] Subj: Appointment Scheduled 03/03/2025 8:30 AM CDT Appointment [facility] [address] [place] [address] Josue uGerra MD [address] [place] [address] Monitored, Cardiac Rehab Subj: Appointment Scheduled 03/03/2025 9:30 AM CDT Appointment [facility] [address] [place] [address] Josue Guerra MD [address] [place] [address] Subj: Appointment Scheduled 03/08/2025 8:30 AM CDT Appointment [facility] [address] [place] [address] Josue Guerra MD [address] [facility] [place] [address] Monitored, Cardiac Rehab Subj: Appointment Scheduled 03/08/2025 9:30 AM CDT Appointment [facility] [address] [facility] [place] [address] Josue Guerra MD [address] [place] [address] Subj: Appointment Scheduled 03/10/2025 8:30 AM CDT Appointment [facility] [address] [facility] [place] [address] Josue Guerra MD [address] [place] [address] Monitored, Cardiac Rehab Subj: Appointment Scheduled 03/10/2025 9:30 AM CDT Appointment [facility] [address] [place] [address] Josue Guerra MD [address] [place] [address] Subj: Appointment Scheduled 03/15/2025 8:30 AM CDT Appointment [facility] [address] [place] [place] [address] Josue Guerra MD [address] [facility] [place] [address] Monitored, Cardiac Rehab Subj: Appointment Scheduled 03/15/2025 9:30 AM CDT Appointment [facility] [address] [place] [address] Josue Guerra MD [address] [place] [address] Subj: Appointment Scheduled documented as of this encounter Visit Diagnoses Not on filedocumented in this encounter Care Teams Ager Operator Relationship Specialty Start Date End Date Cornelia Torres APRN,TRUCK BRACER [address] [place] [address] PCP - General Nurse Practitioner Family 11/14/21 Jadon Pelletier MD 06/23/17 Armando Restrepo MD [place] 06/23/17 Jadon Rossi MD [address] [place] [address] Internal Medicine Cardiovascular Disease 01/11/21 Patricia Babb APRN,TRUCK BRACER [address] [place] [address] Heart Failure Team Nurse Practitioner 03/13/21 Cecilia Crenshaw MD [address] [place] [address] Internal Medicine - Nephrology 07/23/24 Sal Rascon MD [address] [facility] [address] Cardiology-Interventional 10/31/24 documented as of this encounter Additional Source Comments PLEASE NOTE: Replies to this message will not be received.[facility] and [facility]
--- OUTSIDE RECORDS SUMMARY | 2024-12-23 08:16 | XMS_ITS | Encounter Summary ---
Author Organization [facility] [employer] [facility] Address [address] [place] [address] Care Team Providers Care Car Body Mechanic Name Role Phone Jadon Pelletier MD Unavailable Unavaila Armando Basurto MD Unavailable Jadon Rossi MD Unavailable Patricia Babb MEDIUM CYCLE SALESPERSON,[facility] Unavailable + Cornelia Torres MEDIUM CYCLE SALESPERSON,[facility] Primary Care Provider + Cecilia Crenshaw MD Unavailabl e Sal Rascon MD Unavailable [phone] Reason for Visit * Cardiac Rehab (Routine) - Authorized Specialty Diagnoses / Procedures Referred By Contac t Referred To Contact Cardiology Diagnoses ST elevation myocardial infarction involving left anterior descending (LAD) coronary artery (HCC) Josue Guerra MD [address] [place] [phone] Phone: tel: fax: [facility] [address] [place] [address] Phone: tel: fax: Referral ID Status Reason Start Date Expiration Date V isits Requested Visits Authorized [id number] Authorized 10/29/2024 11/28/2025 72 72 Encounter Details Date Type Department Care Team (Latest Contact Info) Description 12/23/2024 8:16 AM CDT - 12/23/2024 11:59 PM CDT Hospital Encounter [facility] [address] [place] [address] Josue Guerra MD [address] [place] [phone] Monitored, Cardiac Rehab Subj: Appointment Scheduled Discharge [...] from your doctor or pharmacy? Never 03/17/2024 Fablisticities Answer Date Recorded In the past 12 months has e [employer], oil, or water [employer] threatened to shut off services in your [...] often do you attend chur ch or spiritism services? Never 03/17/2024 Do you belong to any clubs o r organizations such as oriental orthodox groups, unions, fraternal or athletic groups, [...] any time in the past 12 [facility], were you homeless or living in a fci (including now)? No 10/29/2024 Housing Stability Answer [...] any time in the past 12 m [facility], were you homeless or living in a fci (including now)? 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 Per patient, no medication changes since last visit. Per patient, medications taken as prescribed. RESPONSE: Patient tolerated exercise session well with no complaints. RESPONSE: HR and BP responses to exercise were appropriate. RHYTHM: Sinus rhythm with no ectopy, no ST changes noted. UNITS CHARGED: Exercise session - 4 (60 minutes). Patient unable to stay for education class today. documented in this encounter Plan of Treatment Upcoming Encounters Date Type Department Care Team (Late st Contact Info) Description 01/04/2025 8:30 AM CDT Appointment [facility] [address] [place] [address] [place] [address] [place] [phone] Monitored, Cardiac Rehab Subj: Appointment Scheduled 01/04/2025 9:30 AM CDT Appointment [facility] [address] [place] [address] Josue Guerra MD [address] [place] [phone] Subj: Appointment Scheduled 01/06/2025 8:30 AM CDT Appointment [facility] [address] [place] [address] Josue Guerra MD [address] [place] [phone] Monitored, Cardiac Rehab Subj: Appointment Scheduled 01/06/2025 9:30 AM CDT Appointment [facility] [address] [facility] [place] [address] Josue Guerra MD [address] [place] [address] Subj: Appointment Scheduled 01/11/2025 8:30 AM CDT Appointment [facility] [address] [place] [address] Josue Guerra MD [address] [place] [address] Monitored, Cardiac Rehab Subj: Appointment Scheduled 01/11/2025 9:30 AM CDT Appointment [facility] [address] [place] [address] Josue Guerra MD [address] [place] [address] Subj: Appointment Scheduled 01/13/2025 8:30 AM CDT Appointment [facility] [address] [facility] [place] [address] Josue Guerra MD [address] [place] [address] Monitored, Cardiac Rehab Subj: Appointment Scheduled 01/13/2025 9:30 AM CDT Appointment [facility] [address] [facility] [place] [address] Josue Guerra MD [address] [place] [address] Subj: Appointment Scheduled 01/18/2025 8:30 AM CDT Appointment [facility] [address] [facility] [place] [address] Josue Guerra MD [address] [place] [address] Monitored, Cardiac Rehab Subj: Appointment Scheduled 01/18/2025 9:30 AM CDT Appointment [facility] [address] [place] [address] Josue Guerra MD [address] [place] [address] Subj: Appointment Scheduled 01/20/2025 8:30 AM CDT Appointment [facility] [address] [place] [address] Josue Guerra MD [address] [place] [address] Monitored, Cardiac Rehab Subj: Appointment Scheduled 01/20/2025 9:30 AM CDT Appointment [facility] [address] [place] [address] Josue Guerra MD [address] [place] [address] Subj: Appointment Scheduled 01/25/2025 8:30 AM CDT Appointment [facility] [address] [place] [address], [place] [address] Josue Guerra MD [address] [place] [address] Monitored, Cardiac Rehab Subj: Appointment Scheduled 01/25/2025 9:30 AM CDT Appointment [facility] [address] [place] [address], [place] [address] [place] [address] [place] [address], [place] [address] Subj: Appointment Scheduled 01/27/2025 8:30 AM CDT Appointment [facility] [address] [place] [address], [place] [address] [place] [address] [place] [address], [place] [address] Monitored, Cardiac Rehab Subj: Appointment Scheduled 01/27/2025 9:30 AM CDT Appointment [facility] [address] [place] [address], [place] [address] [place] [address] [place] [address], [place] [address] Subj: Appointment Scheduled 02/01/2025 8:30 AM CDT Appointment [facility] [address] [place] [address], [place] [address] [place] [address] [place] [address], [place] [address] Monitored, Cardiac Rehab Subj: Appointment Scheduled 02/01/2025 9:30 AM CDT Appointment [facility] [address] [place] [address] Josue Guerra MD [address] [place] [address] Subj: Appointment Scheduled 02/03/2025 8:30 AM CDT Appointment [facility] [address] [place] [address] Josue Guerra MD [address] [place] [address] Monitored, Cardiac Rehab Subj: Appointment Scheduled 02/03/2025 9:30 AM CDT Appointment [facility] [address] [place] [address] Josue Guerra MD [address] [place] [address] Subj: Appointment Scheduled 02/08/2025 8:30 AM CDT Appointment [facility] [address] [place] [address] Josue Guerra MD [address] [place] [address] Monitored, Cardiac Rehab Subj: Appointment Scheduled 02/08/2025 9:30 AM CDT Appointment [facility] [address] [place] [address] Josue Guerra MD [address] [place] [address] Subj: Appointment Scheduled 02/10/2025 8:30 AM CDT Appointment [facility] [address] [place] [address] Josue Guerra MD [address] [place] [address] Monitored, Cardiac Rehab Subj: Appointment Scheduled 02/10/2025 9:30 AM CDT Appointment [facility] [address] [facility] [place] [address] Josue Guerra MD [address] [place] [address] Subj: Appointment Scheduled 02/15/2025 8:30 AM CDT Appointment [facility] [address] [facility] [place] [address] Josue Guerra MD [address] [place] [address] Monitored, Cardiac Rehab Subj: Appointment Scheduled 02/15/2025 9:30 AM CDT Appointment [facility] [address] [facility] [place] [address] Josue Guerra MD [address] [facility] [address] Subj: Appointment Scheduled 02/17/2025 8:30 AM CDT Appointment [facility] [address] [place] [address] Josue Guerra MD [address] [facility] [address] Monitored, Cardiac Rehab Subj: Appointment Scheduled 02/17/2025 9:30 AM CDT Appointment [facility] [address] [place] [address], [place] [address] Josue Guerra MD [address] [place] [address] Subj: Appointment Scheduled 02/22/2025 8:30 AM CDT Appointment [facility] [address] [place] [address], [place] [address] [place] [address] [place] [address], [place] [address] Monitored, Cardiac Rehab Subj: Appointment Scheduled 02/22/2025 9:30 AM CDT Appointment [facility] [address] [place] [address], [place] [address] [place] [address] [place] [address], [place] [address] Subj: Appointment Scheduled 02/24/2025 8:30 AM CDT Appointment [facility] [address] [place] [address], [place] [address] Josue Guerra MD [address] [place] [address] Monitored, Cardiac Rehab Subj: Appointment Scheduled 02/24/2025 9:30 AM CDT Appointment [facility] [address] [place] [address] Josue Guerra MD [address] [place] [address] Subj: Appointment Scheduled 03/01/2025 8:30 AM CDT Appointment [facility] [address] [place] [address], [place] [address] [place] [address] [place] [address], [place] [address] Monitored, Cardiac Rehab Subj: Appointment Scheduled 03/01/2025 9:30 AM CDT Appointment [facility] [address] [place] [address], [place] [address] [place] [address] [place] [address], [place] [address] Subj: Appointment Scheduled 03/03/2025 8:30 AM CDT Appointment [facility] [address] [place] [address], [place] [address] Josue Guerra MD [address] [place] [address] Monitored, Cardiac Rehab Subj: Appointment Scheduled 03/03/2025 9:30 AM CDT Appointment [facility] [address] [place] [address], [place] [address] Josue Guerra MD [address] [place] [address] Subj: Appointment Scheduled 03/08/2025 8:30 AM CDT Appointment [facility] [address] [facility] [place] [address] Josue Guerra MD [address] [facility] [place] [address] Monitored, Cardiac Rehab Subj: Appointment Scheduled 03/08/2025 9:30 AM CDT Appointment [facility] [address] [facility] [place] [address] Josue Guerra MD [address] [place] [address] Subj: Appointment Scheduled 03/10/2025 8:30 AM CDT Appointment [facility] [address] [place] [address] Josue Guerra MD [address] [place] [address] Monitored, Cardiac Rehab Subj: Appointment Scheduled 03/10/2025 9:30 AM CDT Appointment [facility] [address] [place] [address] Josue Guerra MD [address] [place] [address] Subj: Appointment Scheduled 03/15/2025 8:30 AM CDT Appointment [facility] [address] [place] [address] Josue Guerra MD [address] [place] [address] Monitored, Cardiac Rehab Subj: Appointment Scheduled 03/15/2025 9:30 AM CDT Appointment [facility] [address] [place] [address] Josue Guerra MD [address] [place] [address] Subj: Appointment Scheduled documented as of this encounter Visit Diagnoses Not on filedocumented in this encounter Care Teams Car Body Mechanic Relationship Specialty Start Date End Date Cornelia Torres APRN,MONOTYPE SETTER [address] [place] [phone] PCP - General Nurse Practitioner Family 11/14/21 Jadon Pelletier MD 06/23/17 Armando Restrepo MD [place] 06/23/17 Jadon Rossi MD [address] [place] [address] Internal Medicine Cardiovascular Disease 01/11/21 Patricia Babb APRN,MONOTYPE SETTER [address] [place] [address] Heart Failure Team Nurse Practitioner 03/13/21 Cecilia Crenshaw MD [address] [place] [address] Internal Medicine - Nephrology 07/23/24 Sal Rascon MD [address] [place] [address] Cardiology-Interventional 10/31/24 documented as of this encounter Additional Source Comments PLEASE NOTE: Replies to this message will not be received.[facility]
[2025-01-01] VITALS (17 sets, daily range): BP systolic 132–200; BP diastolic 73–109; PULSE 79–91; RESP 16–22; TEMP 36.4; O2SAT 86–97
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
[2025-01-01 14:11] LABS: Hematocrit 43.7 % (37.0-53.0); Hemoglobin* 14.1 gm/dL (13.5-17.5); Immature Granulocytes Abs Auto 0.02 K/uL (0.00-0.30); Immature Granulocytes Pct Auto 0.2 %; Lymphocytes Absolute Auto 2.28 K/uL (0.90-2.90); Mean Corpuscular HGB Conc 32 gm/dL (32-36); Mean Corpuscular Hemoglobin 27 pg (26-34); Mean Corpuscular Volume 84 fL (80-100); RDW Coefficient of Variation % 13.1 % (11.5-15.5); Red Blood Count 5.19 m/uL (4.30-5.90); White Blood Count* 10.48 K/uL (4.50-11.00)
[2025-01-01 14:12] LABS: Slide Review Reflex No
[2025-01-01 14:25] LABS: Albumin* 4.5 g/dL (3.3-5.0); Chloride* 104 mmol/L (96-114)
[2025-01-01 14:26] LABS: Potassium* 4.2 mmol/L (3.6-5.1); Sodium* 137 mmol/L (135-149)
[2025-01-01 14:28] LABS: Alanine Aminotransferase* 32 U/L (4-50); Anion Gap 11 mEq/L (7-15); Aspartate Amino Transferase* 30 U/L (12-35); Bilirubin Total* 1.0 mg/dL (0.1-1.5); Blood Urea Nitrogen* 26 mg/dL (7-30); Carbon Dioxide* 22 mmol/L (20-32); Creatinine* 1.5 mg/dL (0.5-1.5); Estimated Glomerular Filt Rate 50 ml/min
[2025-01-01 14:29] LABS: Alkaline Phosphatase* 130 U/L (40-150); Calcium* 9.1 mg/dL (8.4-10.6); Glucose* 112 mg/dL (60-115); Total Protein* 7.7 g/dL (6.0-8.3)
--- OUTSIDE RECORDS SUMMARY | 2025-01-01 15:15 | XMS_ITS | Encounter Summary ---
Author Organization [facility] [employer] [facility] Address [address] [place] [id number] Care Team Providers Care Teacher Emotionally Impaired Name Role Phone Jadon Pelletier MD Unavailable Unavaila Armando Basurto MD Unavailable Jadon Rossi MD Unavailable Patricia Babb APRN,[facility] Unavailable + Cornelia Torres CLOTH WINDING SUPERVISOR,[facility] Primary Care Provider + Cecilia Crenshaw MD Unavailabl e Sal Rascon MD Unavailable [phone] Encounter Details Date Type Department Care Team (Late st Contact Info) Description 11/01/2024 Results Follow-Up [facility] Cardiac Intensive Care [address] [place] [id number] Georgina Osman RN ECG, ECG Social History Tobacco Use Types Packs/Day Years [...] from your doctor or pharmacy? Never 03/17/2024 [facility] Utilities Answer Date Recorded In the past 12 months has e electric, gas, oil, or water [employer] threatened to shut off services in your [...] 03/17/2024 How often do you attend chur or zoroastrian services? Never 03/17/2024 Do you belong to any clubs o r organizations such as episcopalian groups, unions, fraternal or athletic groups, or [...] care, and heating? Not very hard 03/17/2024 [facility] [place] [facility] Occupat ional [facility] - Occupational Stress [...] any time in the past 12 m [facility], were you homeless or living in a snf (including now)? No 10/29/2024 Housing Stability Answer [...] any time in the past 12 m [facility], were you homeless or living in a snf (including now)? No 10/29/2024 In the past 12 months, how m any times have you moved where you were living? 0 10/29/2024 Housing Condition Worry Not on file 10/30/19 25 Intimate Partner Violence Answer Date R ecorded Are you in a relationship wh ere you are physically hurt, threatened and/or made to feel afraid? No 10/29/2024 Transportation Needs Answer Date Record ed In [...] on file Legal Sex Male 12:44 AM [employer] Gender Identity Not on file Sexual Orientation [...] Entry Date Author No 10/29/2024 11:00 PM CDT Mine Siegel RN documented in this encounter Plan of Treatment Upcoming Encounters Date Type Department Care Team (Late st Contact Info) Description 01/04/2025 8:30 AM CDT Appointment [facility] Cardiac Rehab [address] [facility], [place] [id number] [place] [address] [place] [address] Monitored, Cardiac Rehab Subj: Appointment Scheduled 01/04/2025 9:30 AM CDT Appointment [facility] [address] [place] [address], [place] [id number] [place] [address] [place] [phone] Subj: Appointment Scheduled 01/06/2025 8:30 AM CDT Appointment [facility] Rehab [address] [place] [address], [place] [id number] [place] [address] [place] [phone] Monitored, Cardiac Rehab Subj: Appointment Scheduled 01/06/2025 9:30 AM CDT Appointment [facility] Rehab [address] [place] [address], [place] [id number] [place] [address] [place] [phone] Subj: Appointment Scheduled 01/11/2025 8:30 AM CDT Appointment [facility]hab [address] [facility] [place] [address] Josue Guerra MD [address] [place] [address] Monitored, Cardiac Rehab Subj: Appointment Scheduled 01/11/2025 9:30 AM CDT Appointment [facility]hab [address] [place] [address], [place] [id number] Josue Guerra MD [address] [place] [address] Subj: Appointment Scheduled 01/13/2025 8:30 AM CDT Appointment [facility]hab [address] [place] [address], [place] [address] Josue Guerra MD [address] [place] [address] Monitored, Cardiac Rehab Subj: Appointment Scheduled 01/13/2025 9:30 AM CDT Appointment [facility]hab [address] [facility] [place] [address] Josue Guerra MD [address] [place] [address] Subj: Appointment Scheduled 01/18/2025 8:30 AM CDT Appointment [facility] [address] [place] [address], [place] [address] Josue Guerra MD [address] [place] [address] Monitored, Cardiac Rehab Subj: Appointment Scheduled 01/18/2025 9:30 AM CDT Appointment [facility]hab [address] [place] [address], [place] [address] [place] [address] [place] [address], [place] [address] Subj: Appointment Scheduled 01/20/2025 8:30 AM CDT Appointment [facility] [address] [place] [address], [place] [address] Josue Guerra MD [address] [place] [address], [place] [address] Monitored, Cardiac Rehab Subj: Appointment Scheduled 01/20/2025 9:30 AM CDT Appointment [facility] [address] [place] [address], [place] [address] [place] [address] [place] [address], [place] [address] Subj: Appointment Scheduled 01/25/2025 8:30 AM CDT Appointment [facility] [address] [place] [address], [place] [address] Josue Guerra MD [address] [place] [address] Monitored, Cardiac Rehab Subj: Appointment Scheduled 01/25/2025 9:30 AM CDT Appointment [facility]hab [address] [place] [address], [place] [address] Josue Guerra MD [address] [place] [address] Subj: Appointment Scheduled 01/27/2025 8:30 AM CDT Appointment [facility] [address] [place] [address], [place] [address] Josue Guerra MD [address] [place] [address] Monitored, Cardiac Rehab Subj: Appointment Scheduled 01/27/2025 9:30 AM CDT Appointment [facility] [address] [place] [address], [place] [address] Josue Guerra MD [address] [place] [address] Subj: Appointment Scheduled 02/01/2025 8:30 AM CDT Appointment [facility] [address] [place] [address], [place] [address] Josue Guerra MD [address] [place] [address] Monitored, Cardiac Rehab Subj: Appointment Scheduled 02/01/2025 9:30 AM CDT Appointment [facility] [address] [place] [address], [place] [address] Josue Guerra MD [address] [place] [address] Subj: Appointment Scheduled 02/03/2025 8:30 AM CDT Appointment [facility] [address] [facility] [place] [address] Josue Guerra MD [address] [place] [address] Monitored, Cardiac Rehab Subj: Appointment Scheduled 02/03/2025 9:30 AM CDT Appointment [facility] [address] [place] [address], [place] [address] Josue Guerra MD [address] [place] [address] Subj: Appointment Scheduled 02/08/2025 8:30 AM CDT Appointment [facility] [address] [place] [address], [place] [address] Josue Guerra MD [address] [place] [address] Monitored, Cardiac Rehab Subj: Appointment Scheduled 02/08/2025 9:30 AM CDT Appointment [facility] [address] [place] [address], [place] [address] Josue Guerra MD [address] [place] [address] Subj: Appointment Scheduled 02/10/2025 8:30 AM CDT Appointment [facility] [address] [place] [address], [place] [address] Josue Guerra MD [address] [place] [address] Monitored, Cardiac Rehab Subj: Appointment Scheduled 02/10/2025 9:30 AM CDT Appointment [facility] [address] [facility] [place] [address] Josue Guerra MD [address] [facility] [address] Subj: Appointment Scheduled 02/15/2025 8:30 AM CDT Appointment [facility] [address] [facility] [place] [address] Josue Guerra MD [address] [place] [address] Monitored, Cardiac Rehab Subj: Appointment Scheduled 02/15/2025 9:30 AM CDT Appointment [facility] [address] [facility] [place] [address] Josue Guerra MD [address] [place] [address] Subj: Appointment Scheduled 02/17/2025 8:30 AM CDT Appointment [facility] [address] [facility] [place] [address] Josue Guerra MD [address] [place] [address] Monitored, Cardiac Rehab Subj: Appointment Scheduled 02/17/2025 9:30 AM CDT Appointment [facility] [address] [facility] [place] [address] Josue Guerra MD [address] [place] [address] Subj: Appointment Scheduled 02/22/2025 8:30 AM CDT Appointment [facility] [address] [facility] [place] [address] Josue Guerra MD [address] [place] [address] Monitored, Cardiac Rehab Subj: Appointment Scheduled 02/22/2025 9:30 AM CDT Appointment [facility] [address] [place] [address], [place] [address] [place] [address] [place] [address], [place] [address] Subj: Appointment Scheduled 02/24/2025 8:30 AM CDT Appointment [facility] [address] [place] [address], [place] [address] Josue Guerra MD [address] [place] [address] Monitored, Cardiac Rehab Subj: Appointment Scheduled 02/24/2025 9:30 AM CDT Appointment [facility] [address] [place] [address], [place] [address] [place] [address] [place] [address], [place] [address] Subj: Appointment Scheduled 03/01/2025 8:30 AM CDT Appointment [facility] [address] [place] [address], [place] [address] Josue Guerra MD [address] [place] [address] Monitored, Cardiac Rehab Subj: Appointment Scheduled 03/01/2025 9:30 AM CDT Appointment [facility] [address] [facility] [place] [address] Josue Guerra MD [address] [place] [address] Subj: Appointment Scheduled 03/03/2025 8:30 AM CDT Appointment [facility] [address] [place] [address], [place] [address] Josue Guerra MD [address] [place] [address] Monitored, Cardiac Rehab Subj: Appointment Scheduled 03/03/2025 9:30 AM CDT Appointment [facility] [address] [place] [address], [place] [address] Josue Guerra MD [address] [place] [address] Subj: Appointment Scheduled 03/08/2025 8:30 AM CDT Appointment [facility] [address] [place] [address], [place] [address] Josue Guerra MD [address] [place] [address] Monitored, Cardiac Rehab Subj: Appointment Scheduled 03/08/2025 9:30 AM CDT Appointment [facility] [address] [facility] [place] [address] Josue Guerra MD [address] [facility] [place] [address] Subj: Appointment Scheduled 03/10/2025 8:30 AM CDT Appointment [facility] [address] [facility] [place] [address] Josue Guerra MD [address] [place] [address] Monitored, Cardiac Rehab Subj: Appointment Scheduled 03/10/2025 9:30 AM CDT Appointment [facility] [address] [facility] [place] [address] Josue Guerra MD [address] [place] [address] Subj: Appointment Scheduled 03/15/2025 8:30 AM CDT Appointment [facility] [address] [facility] [place] [address] Josue Guerra MD [address] [place] [address] Monitored, Cardiac Rehab Subj: Appointment Scheduled 03/15/2025 9:30 AM CDT Appointment [facility] [address] [facility] [place] [address] Josue Guerra MD [address] [place] [address] Subj: Appointment Scheduled documented as of this encounter Visit Diagnoses Not on filedocumented in this encounter Care Teams Teacher Emotionally Impaired Relationship Specialty Start Date End Date Cornelia Torres APRN,[employer] [address] [place] [phone] PCP - General Nurse Practitioner Family 11/14/21 Jadon Pelletier MD 06/23/17 Armando Restrepo MD [place] 06/23/17 Jadon Rossi MD [address] [place] [address] Internal Medicine Cardiovascular Disease 01/11/21 Patricia Babb APRN,[facility] [address] [place] [address] Heart Failure Team Nurse Practitioner 03/13/21 Cecilia Crenshaw MD [address] [place] [address] Internal Medicine - Nephrology 07/23/24 Sal Rascon MD [address] [place] [address] Cardiology-Interventional 10/31/24 documented as of this encounter Additional Source Comments PLEASE NOTE: Replies to this message will not be received.[facility] and [facility]
--- OUTSIDE RECORDS SUMMARY | 2025-01-01 15:15 | XMS_ITS | Encounter Summary ---
Author Organization [employer] Address [address] [place] [id number] Care Team Providers Care Pre Algebra Teacher Name Role Phone Jadon Pelletier MD Unavailable Unavaila Armando Basurto MD Unavailable Jadon Rossi MD Unavailable [phone] Patricia Babb APRN,[facility] Unavailable + Cornelia Torres TOWERMAN,[facility] Primary Care Provider + Cecilia Crenshaw MD Unavailabl e Sal Rascon MD Unavailable [phone] Encounter Details Date Type Department Care Team (Latest Contact Info) Description 11/23/2024 Travel Social History Tobacco Use Types Packs/Day Years [...] from your doctor or pharmacy? Never 03/17/2024 [facility] Utilities Answer Date Recorded In the past 12 months has th e electric, gas, oil, or water company threatened to shut off services in your [...] 03/17/2024 How often do you attend chur [employer] or holiness services? Never 03/17/2024 Do you belong to any clubs o r organizations such as amish groups, unions, fraternal or athletic groups, or [...] care, and heating? Not very hard 03/17/2024 [facility] [place] [facility] Occupat ional Health - Occupational Stress [...] any time in the past 12 m [facility], were you homeless or living in a longterm (including now)? No 10/29/2024 Housing Stability Answer [...] any time in the past 12 m [facility], were you homeless or living in a longterm (including now)? 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 [address] [place] [address] Josue Guerra MD [address] [address] Monitored, Cardiac Rehab Subj: Appointment Scheduled 01/04/2025 9:[address] [facility] [address] [facility] [place] [address] Josue Guerra MD [address] [facility] [place] [address] Subj: Appointment Scheduled 01/06/2025 8:[address] [facility] [address] [facility] [place] [id number] Josue Guerra MD [address] [facility] [place] [address] Monitored, Cardiac Rehab Subj: Appointment Scheduled 01/06/2025 9:[address] [facility] [address] [facility] [place] [address] Josue Guerra MD [address] [facility] [place] [address] Subj: Appointment Scheduled 01/11/2025 8:[address] [facility] [address] [facility] [place] [address] Josue Guerra MD [address] [facility] [place] [address] Monitored, Cardiac Rehab Subj: Appointment Scheduled 01/11/2025 9:[address] [facility] [address] [place] [address], [place] [address] Josue Guerra MD [address] [facility] [place] [address] Subj: Appointment Scheduled 01/13/2025 8:[address] [facility] [address] [place] [address], [place] [address] [place] [address] [place] [address], [place] [address] Monitored, Cardiac Rehab Subj: Appointment Scheduled 01/13/2025 9:[address] [facility] [address] [place] [address], [place] [address] Josue Guerra MD [address] [facility] [place] [address] Subj: Appointment Scheduled 01/18/2025 8:[address] [facility] [address] [place] [address], [place] [address] Josue Guerra MD [address] [facility] [place] [address] Monitored, Cardiac Rehab Subj: Appointment Scheduled 01/18/2025 9:[address] [facility] [address] [place] [address] Josue Guerra MD [address] [facility] [place] [address] Subj: Appointment Scheduled 01/20/2025 8:[address] [facility] [address] [place] [address], [place] [address] [place] [address] [place] [address], [place] [address] Monitored, Cardiac Rehab Subj: Appointment Scheduled 01/20/2025 9:[address] [facility] [address] [place] [address], [place] [address] [place] [address] [place] [address], [place] [address] Subj: Appointment Scheduled 01/25/2025 8:[address] [facility] [address] [place] [address], [place] [address] Josue Guerra MD [address] [facility] [place] [address] Monitored, Cardiac Rehab Subj: Appointment Scheduled 01/25/2025 9:[address] [facility] [address] [place] [address], [place] [address] Josue Guerra MD [address] [facility] [place] [address] Subj: Appointment Scheduled 01/27/2025 8:[address] [facility] [address] [place] [address] Josue Guerra MD [address] [facility] [place] [facility] [place] [address] Monitored, Cardiac Rehab Subj: Appointment Scheduled 01/27/2025 9:[address] [facility] [address] [place] [address] Josue Guerra MD [address] [facility] [place] [address] Subj: Appointment Scheduled 02/01/2025 8:[address] [facility] [address] [place] [address], [place] [address] Josue Guerra MD [address] [facility] [place] [address] Monitored, Cardiac Rehab Subj: Appointment Scheduled 02/01/2025 9:[address] [facility] [address] [place] [address] Josue Guerra MD [address] [facility] [place] [address] Subj: Appointment Scheduled 02/03/2025 8:[address] [facility] [address] [place] [address], [place] [address] Josue Guerra MD [address] [facility] [place] [facility] [place] [address] Monitored, Cardiac Rehab Subj: Appointment Scheduled 02/03/2025 9:[address] [facility] [address] [place] [address] Josue Guerra MD [address] [facility] [place] [address] Subj: Appointment Scheduled 02/08/2025 8:[address] [facility] [address] [place] [address], [place] [address] [place] [address] [place] [address], [place] [address] Monitored, Cardiac Rehab Subj: Appointment Scheduled 02/08/2025 9:[address] [facility] [address] [place] [address], [place] [address] Josue Guerra MD [address] [facility] [place] [address] Subj: Appointment Scheduled 02/10/2025 8:[address] [facility] [address] [place] [address], [place] [address] Josue Guerra MD [address] [facility] [place] [facility] [place] [address] Monitored, Cardiac Rehab Subj: Appointment Scheduled 02/10/2025 9:[address] [facility] [address] [place] [address], [place] [address] Josue Guerra MD [address] [facility] [place] [address] Subj: Appointment Scheduled 02/15/2025 8:[address] [facility] [address] [place] [address] Josue Guerra MD [address] [facility] [place] [facility] [place] [address] Monitored, Cardiac Rehab Subj: Appointment Scheduled 02/15/2025 9:[address] [facility] [address] [place] [address], [place] [address] Josue Guerra MD [address] [facility] [place] [address] Subj: Appointment Scheduled 02/17/2025 8:[address] [facility] [address] [place] [address], [place] [address] Josue Guerra MD [address] [facility] [place] [address] Monitored, Cardiac Rehab Subj: Appointment Scheduled 02/17/2025 9:[address] [facility] [address] [place] [address], [place] [address] Josue Guerra MD [address] [facility] [place] [address] Subj: Appointment Scheduled 02/22/2025 8:[address] [facility] [address] [place] [address] Josue Guerra MD [address] [facility] [place] [facility] [place] [address] Monitored, Cardiac Rehab Subj: Appointment Scheduled 02/22/2025 9:[address] [facility] [address] [place] [address], [place] [address] Josue Guerra MD [address] [facility] [place] [address] Subj: Appointment Scheduled 02/24/2025 8:[address] [facility] [address] [place] [address], [place] [address] [place] [address] [place] [address], [place] [address] Monitored, Cardiac Rehab Subj: Appointment Scheduled 02/24/2025 9:[address] [facility] [address] [place] [address], [place] [address] Josue Guerra MD [address] [facility] [place] [address] Subj: Appointment Scheduled 03/01/2025 8:[address] [facility] [address] [place] [address], [place] [address] Josue Guerra MD [address] [facility] [place] [address] Monitored, Cardiac Rehab Subj: Appointment Scheduled 03/01/2025 9:[address] [facility] [address] [place] [address] Josue Guerra MD [address] [facility] [place] [address] Subj: Appointment Scheduled 03/03/2025 8:[address] [facility] [address] [place] [address] Josue Guerra MD [address] [facility] [place] [address] Monitored, Cardiac Rehab Subj: Appointment Scheduled 03/03/2025 9:[address] [facility] [address] [place] [address] Josue Guerra MD [address] [facility] [place] [address] Subj: Appointment Scheduled 03/08/2025 8:[address] [facility] [address] [place] [address] Josue Guerra MD [address] [facility] [place] [address] Monitored, Cardiac Rehab Subj: Appointment Scheduled 03/08/2025 9:[address] [facility] [address] [place] [address] Josue Guerra MD [address] [facility] [place] [address] Subj: Appointment Scheduled 03/10/2025 8:[address] [facility] [address] [place] [address] Josue Guerra MD [address] [facility] [place] [address] Monitored, Cardiac Rehab Subj: Appointment Scheduled 03/10/2025 9:[address] [facility] [address] [place] [address], [place] [address] [place] [address] [place] [address], [place] [address] Subj: Appointment Scheduled 03/15/2025 8:[address] [facility] [address] [place] [address], [place] [address] [place] [address] [place] [address], [place] [address] Monitored, Cardiac Rehab Subj: Appointment Scheduled 03/15/2025 9:[address] [facility] [address] [place] [address], [place] [address] [place] [address] [place] [address], [place] [address] Subj: Appointment Scheduled documented as of this encounter Visit Diagnoses Not on filedocumented in this encounter Care Teams Pre Algebra Teacher Relationship Specialty Start Date End Date Cornelia Torres APRN,CLIENT EVALUATOR [address] [place] [address] PCP - General Nurse Practitioner Family 11/14/21 Jadon Pelletier MD 06/23/17 Armando Restrepo MD [place] 06/23/17 Jadon Rossi MD [address] [place] [address] Internal Medicine Cardiovascular Disease 01/11/21 Patricia Babb APRN,CLIENT EVALUATOR [address] [place] [address] Heart Failure Team Nurse Practitioner 03/13/21 Cecilia Crenshaw MD [address] [place] [address] Internal Medicine - Nephrology 07/23/24 Sal Rascon MD [address] [place] [address] Cardiology-Interventional 10/31/24 documented as of this encounter Additional Source Comments PLEASE NOTE: Replies to this message will not be received.[facility]
--- OUTSIDE RECORDS SUMMARY | 2025-01-01 15:15 | XMS_ITS | Encounter Summary ---
Author Organization [facility] Address [address] [place] [address] Care Team Providers Care Business Technology Architect Name Role Phone Jadon Pelletier MD Unavailable Unavaila ble Armando Restrepo MD Unavailable Jadon Rossi MD Unavailable [phone] Patricia Babb READING EFFICIENCY COURSE DIRECTOR,PHARMACEUTICAL LABORATORY TECHNICIAN Unavailable + Cornelia Torres READING EFFICIENCY COURSE DIRECTOR,PHARMACEUTICAL LABORATORY TECHNICIAN Primary Care Provider + Cecilia Crenshaw MD Unavailabl e Sal Rascon MD Unavailable [phone] Encounter Details Date Type Department Care Team (Latest Contact Info) Description 09/21/2024 Results Follow-Up [address] [phone] Cornelia Torres, READING EFFICIENCY COURSE DIRECTOR,PHARMACEUTICAL LABORATORY TECHNICIAN [address] [place] [id number] XR FOOT ROUTINE RT 3 VIEWS Social History Tobacco Use Types Packs/Day Years [...] from your doctor or pharmacy? Never 03/17/[address] [facility] Utilities Answer Date Recorded In the [...] often do you attend chur ch or jewish services? Never 03/17/2024 Do you belong to any clubs o r organizations such as pentecostal groups, unions, fraternal or athletic groups, or [...] care, and heating? Not very hard 03/17/2024 [facility] [place] of Occupat ional Health - Occupational Stress [...] any time in the past 12 m [facility], were you homeless or living in a jail (including now)? No 10/29/2024 Housing Stability Answer [...] any time in the past 12 m [facility], were you homeless or living in a jail (including now)? 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 No 10/29/2024 11:00 PM Shila Kaye cia, RN Do you have serious difficulty walking or climbing stairs? No 10/29/2024 11:00 PM Shawna Kaye RN Do you have difficulty dressing or bathing? No 10/29/2024 11:00 PM Shila Kaye cia RN Do you have difficulty doing errands alone such as visiting a doctor's office or shopping because of a physical, mental, or emotional condition? No 10/29/2024 11:00 PM Shila Kaye cia, RN What assistive devices do cl hunter use for daily activities? No 10/29/2024 11:00 PM CDT Mine Childers RN * Are you deaf or do you have serious difficulty hearing? Answer Date of Assessment Author No 03/17/2024 9:11 AM CDT Irving Villatoro MD * Are you blind or do you have serious difficulty seeing, even when wearing glasses? Answer Date of Assessment Author No 03/17/2024 9:11 AM CDT Irving Villatoro MD * Do you have serious difficulty walking or climbing stairs? Answer Date of Assessment Author No 03/17/2024 9:11 AM CDT Irving Villatoro MD * Do you have difficulty dressing or bathing? Answer Date of Assessment Author No 03/17/2024 9:11 AM CDT Irving Villatoro MD * Do you have difficulty doing errands alone such as visiting a doctor's office or shopping because of a physical, mental, or emotional condition? Answer Date of Assessment Author No 03/17/2024 9:11 AM CDT Irving Villatoro MD documented as of this encounter Mental Status * Question Answer Entry Date Author Are you in a relationship wh ere you are physically hurt, threatened and/or made to feel afraid? No 11/10/2024 3:09 PM CDT Dion Altamirano * Medical Mental Health Assessment Question Answer Entry Date Author Medical Mental Health Assessment WDL 11/01/19 7:50 AM CDT Marcela Cruz RN * Delirium Prevention/Interventions Question Answer Entry Date Author Cognitive Stimulation Staff;Conversation 10/30/2024 9: 00 PM CDT Samuel Pyle, Student/Group Home Manager Sleep/Rest Hours More than 4 hours 10/31/2024 5:30 AM CDT Filemon Araujo RN Vision/Hearing Aid Glasses on 10/30/2024 9:00 PM CDT Samuel Pyle, Student/Group Home Manager * Acute Onset Answer Entry Date Author No 10/31/2024 7:50 AM CDT Marcela Cruz RN * Fluctuating Behavior Answer Entry Date Author No 10/31/2024 7:50 AM CDT Marcela Cruz RN * Inattention Answer Entry Date Author No 10/31/2024 5:30 AM CDT Filemon Araujo, RN * Disorganized Thinking Answer Entry Date Author No 10/30/2024 8:38 PM CDT Filemon Araujo RN * Altered Level of Consciousness Answer Entry Date Author No 10/30/2024 8:38 PM CDT Filemon Araujo RN * Is CAM Screening Tool positive for delirium? Answer Entry Date Author No 10/30/2024 8:38 PM CDT Filemon Araujo, RN * 1. Have you wished you were or wished you could go to sleep and not wake up? Answer Entry Date Author Unable to assess (add comment) 10/31/2024 7:50 A M CDT Marcela Cruz RN * 2. Have you actually had any thoughts of killing yourself? Answer Entry Date Author No 10/30/2024 8:38 PM SUSIET Filemon Araujo RN * 6. (Admission) In the last 3 months / (Rescreen) Since you were last asked: have you done anything, started to do anything, or prepared to do anything to end your life? Answer Entry Date Author No 10/30/2024 8:38 PM CDT Filemon Araujo RN * Violence Risk Assessment (BARS) Question Answer Entry Date Author Behavioral Activity Rating Scale (BARS) 4 - Quiet and awake (normal level of activity) 10/31/2024 7:50 AM CDT Marcela Cruz RN BARS 2 - 4 Continue every shift monitoring (BARS 2-4) Promote sleep/rest 10/31/2024 5:30 AM CDT Filemon Araujo RN Behavioral History None 10/31/2024 7: 50 AM CDT Marcela Cruz RN * Question Answer Entry Date Author Do you have trouble concentrating, remembering, or making decisions because of a physical, mental, or emotional condition? No 10/29/2024 11:00 PM CDT Shila Childers cia, RN * Psychosocial Wellbeing Question Answer Entry Date Author Financial assistance for you r hospital stay may be available. Would you like information or help with this? No 10/29/2024 11:00 PM CDT Mine Luis RN Has stress or anxiety made i t difficult for you to complete daily tasks or get along with others? No 10/29/2024 11:00 PM CDT Shawna Childers RN * Wandering Risk Assessment Question Answer Entry Date Author Patient is cognitively impai red with poor decision making skills or has an official guardian? No 10/30/2024 11:00 AM CDT Smitha Evans i, RN * Risk Level Answer Entry Date Author Unable to assess 10/31/2024 7:50 AM CDT Marcela Cruz RN * Do you have trouble concentrating, remembering, or making decisions because of a physical, mental, or emotional condition? Answer Entry Date Author No 03/17/2024 9:11 AM CDT Irving Villatoro MD documented in this encounter Plan of Treatment Upcoming Encounters Date Type Department Care Team (Late st Contact Info) Description 01/04/2025 8:30 AM CDT Appointment [facility] Cardiac Rehab [address] [place] [id number] Josue Guerra MD [address] [place] [phone] Monitored, Cardiac Rehab Subj: Appointment Scheduled 01/04/2025 9:30 AM CDT Appointment [facility] [address] [place] [id number] Josue Guerra MD [address] [place] [phone] Subj: Appointment Scheduled 01/06/2025 8:30 AM CDT Appointment [facility] [address] [place] [address] Josue Guerra MD [address] [place] [phone] Monitored, Cardiac Rehab Subj: Appointment Scheduled 01/06/2025 9:30 AM CDT Appointment [facility] [address] [facility] [place] [address] Josue Guerra MD [address] [place] [address] Subj: Appointment Scheduled 01/11/2025 8:30 AM CDT Appointment [facility] [address] [facility] [address] Josue Guerra MD [address] [place] [address] Monitored, Cardiac Rehab Subj: Appointment Scheduled 01/11/2025 9:30 AM CDT Appointment [facility] [address] [facility] [address] Josue Guerra MD [address] [place] [address] Subj: Appointment Scheduled 01/13/2025 8:30 AM CDT Appointment [facility] [address] [facility] [place] [address] Josue Guerra MD [address] [place] [address] Monitored, Cardiac Rehab Subj: Appointment Scheduled 01/13/2025 9:30 AM CDT Appointment [facility] [address] [facility] [place] [address] Josue Guerra MD [address] [place] [address] Subj: Appointment Scheduled 01/18/2025 8:30 AM CDT Appointment [facility] [address] [facility] [place] [address] Josue Guerra MD [address] [place] [address] Monitored, Cardiac Rehab Subj: Appointment Scheduled 01/18/2025 9:30 AM CDT Appointment [facility] [address] [facility] [address] Josue Guerra MD [address] [place] [address] Subj: Appointment Scheduled 01/20/2025 8:30 AM CDT Appointment [facility] [address] [facility] [address] Josue Guerra MD [address] [place] [address] Monitored, Cardiac Rehab Subj: Appointment Scheduled 01/20/2025 9:30 AM CDT Appointment [facility] [address] [facility] [address] Josue Guerra MD [address] [place] [address] Subj: Appointment Scheduled 01/25/2025 8:30 AM CDT Appointment [facility] [address] [place] [address], [place] [address] Josue Guerra MD [address] [place] [address] Monitored, Cardiac Rehab Subj: Appointment Scheduled 01/25/2025 9:30 AM CDT Appointment [facility] [address] [place] [address], [place] [address] [place] [address] [place] [address], [place] [address] Subj: Appointment Scheduled 01/27/2025 8:30 AM CDT Appointment [facility] [address] [place] [address], [place] [address] [place] [address] [place] [address], [place] [address] Monitored, Cardiac Rehab Subj: Appointment Scheduled 01/27/2025 9:30 AM CDT Appointment [facility] [address] [place] [address], [place] [address] [place] [address] [place] [address], [place] [address] Subj: Appointment Scheduled 02/01/2025 8:30 AM CDT Appointment [facility] [address] [place] [address], [place] [address] [place] [address] [place] [address], [place] [address] Monitored, Cardiac Rehab Subj: Appointment Scheduled 02/01/2025 9:30 AM CDT Appointment [facility] [address] [facility] [place] [address] Josue Guerra MD [address] [place] [address] Subj: Appointment Scheduled 02/03/2025 8:30 AM CDT Appointment [facility] [address] [facility] [place] [address] Josue Guerra MD [address] [place] [address] Monitored, Cardiac Rehab Subj: Appointment Scheduled 02/03/2025 9:30 AM CDT Appointment [facility] [address] [facility] [address] Josue Guerra MD [address] [place] [address] Subj: Appointment Scheduled 02/08/2025 8:30 AM CDT Appointment [facility] [address] [facility] [address] Josue Guerra MD [address] [place] [address] Monitored, Cardiac Rehab Subj: Appointment Scheduled 02/08/2025 9:30 AM CDT Appointment [facility] [address] [facility] [place] [address] Josue Guerra MD [address] [place] [address] Subj: Appointment Scheduled 02/10/2025 8:30 AM CDT Appointment [facility] [address] [place] [address] Josue Guerra MD [address] [place] [address] Monitored, Cardiac Rehab Subj: Appointment Scheduled 02/10/2025 9:30 AM CDT Appointment [facility] [address] [facility] [place] [address] Josue Guerra MD [address] [place] [address] Subj: Appointment Scheduled 02/15/2025 8:30 AM CDT Appointment [facility] [address] [facility] [place] [address] Josue Guerra MD [address] [place] [address] Monitored, Cardiac Rehab Subj: Appointment Scheduled 02/15/2025 9:30 AM CDT Appointment [facility] [address] [facility] [place] [address] Josue Guerra MD [address] [facility] [place] [address] Subj: Appointment Scheduled 02/17/2025 8:30 AM CDT Appointment [facility] [address] [place] [address] Josue Guerra MD [address] [facility] [address] Monitored, Cardiac Rehab Subj: Appointment Scheduled 02/17/2025 9:30 AM CDT Appointment [facility] [address] [place] [address], [place] [address] Josue Guerra MD [address] [place] [address] Subj: Appointment Scheduled 02/22/2025 8:30 AM CDT Appointment [facility] [address] [place] [address], [place] [address] [place] [address] [place] [address], [place] [address] Monitored, Cardiac Rehab Subj: Appointment Scheduled 02/22/2025 9:30 AM CDT Appointment [facility] [address] [place] [address], [place] [address] [place] [address] [place] [address], [place] [address] Subj: Appointment Scheduled 02/24/2025 8:30 AM CDT Appointment [facility] [address] [place] [address], [place] [address] Josue Guerra MD [address] [place] [address] Monitored, Cardiac Rehab Subj: Appointment Scheduled 02/24/2025 9:30 AM CDT Appointment [facility] [address] [facility] [place] [address] Josue Guerra MD [address] [place] [address] Subj: Appointment Scheduled 03/01/2025 8:30 AM CDT Appointment [facility] [address] [place] [address], [place] [address] [place] [address] [place] [address], [place] [address] Monitored, Cardiac Rehab Subj: Appointment Scheduled 03/01/2025 9:30 AM CDT Appointment [facility] [address] [place] [address], [place] [address] [place] [address] [place] [address], [place] [address] Subj: Appointment Scheduled 03/03/2025 8:30 AM CDT Appointment [facility] [address] [place] [address], [place] [address] Josue Guerra MD [address] [place] [address] Monitored, Cardiac Rehab Subj: Appointment Scheduled 03/03/2025 9:30 AM CDT Appointment [facility] [address] [place] [address], [place] [address] Josue Guerra MD [address] [place] [address] Subj: Appointment Scheduled 03/08/2025 8:30 AM CDT Appointment [facility] [address] [facility] [place] [address] Josue Guerra MD [address] [facility] [place] [address] Monitored, Cardiac Rehab Subj: Appointment Scheduled 03/08/2025 9:30 AM CDT Appointment [facility] [address] [facility] [place] [address] Josue Guerra MD [address] [place] [address] Subj: Appointment Scheduled 03/10/2025 8:30 AM CDT Appointment [facility] [address] [facility] [address] Josue Guerra MD [address] [place] [address] Monitored, Cardiac Rehab Subj: Appointment Scheduled 03/10/2025 9:30 AM CDT Appointment [facility] [address] [facility] [address] Josue Guerra MD [address] [place] [address] Subj: Appointment Scheduled 03/15/2025 8:30 AM CDT Appointment [facility] [address] [facility] [address] Josue Guerra MD [address] [place] [address] Monitored, Cardiac Rehab Subj: Appointment Scheduled 03/15/2025 9:30 AM CDT Appointment [facility] [address] [place] [address] Josue Guerra MD [address] [place] [address] Subj: Appointment Scheduled documented as of this encounter Visit Diagnoses Not on filedocumented in this encounter Care Teams Business Technology Architect Relationship Specialty Start Date End Date Cornelia Torres APRN,PHARMACEUTICAL LABORATORY TECHNICIAN [address] [place] [phone] PCP - General Nurse Practitioner Family 11/14/21 Jadon Pelletier MD 06/23/[address] 06/23/17 Jadon Rossi MD [address] [place] [address] Internal Medicine Cardiovascular Disease 01/11/21 Patricia Babb APRN,PHARMACEUTICAL LABORATORY TECHNICIAN [address] [place] [address] Heart Failure Team Nurse Practitioner 03/13/21 Cecilia Crenshaw MD [address] [place] [address] Internal Medicine - Nephrology 07/23/24 Sal Rascon MD [address] [place] [address] Cardiology-Interventional 10/31/24 documented as of this encounter Additional Source Comments PLEASE NOTE: Replies to this message will not be received.[facility]
--- OUTSIDE RECORDS SUMMARY | 2025-01-01 15:15 | XMS_ITS | Encounter Summary ---
Author Organization [facility] Address [address] [place] [id number] Care Team Providers Care Fender Mechanic Apprentice Name Role Phone Jadon Pelletier MD Unavailable Unavaila ble Armando Restrepo MD Unavailable Jadon Rossi MD Unavailable Patricia Babb SHEEP SHEARER,EARTH SCIENCE TECHNICAL OFFICER Unavailable + Cornelia Torres SHEEP SHEARER,EARTH SCIENCE TECHNICAL OFFICER Primary Care Provider + Cecilia Crenshaw MD Unavailabl e Sal Rascon MD Unavailable [phone] Encounter Details Date Type Department Care Team (Latest Contact Info) Description 11/18/2024 Results Follow-Up [place] [id number] [place] [address] Cornelia Torres, SHEEP SHEARER,EARTH SCIENCE TECHNICAL OFFICER [address] [place] [address] BASIC METABOLIC PANEL, COMPLETE BLOOD COUNT AND DIFFERENTIAL Social History Tobacco Use Types Packs/Day Years [...] from your doctor or pharmacy? Never 03/17/2024 [facility] Utilities Answer Date Recorded In the past [...] often do you attend chur ch or yazdanism services? Never 03/17/2024 Do you belong to [...] care, and heating? Not very hard 03/17/2024 [facility] Occupat ional Health - Occupational Stress [...] any time in the past 12 m [facility], were you homeless or living in a correction (including now)? No 10/29/2024 Housing Stability Answer [...] any time in the past 12 m [facility], were you homeless or living in a correction (including now)? 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 Answer Entry Date Author No 10/29/2024 11:00 PM CDT Mine Siegel RN documented in this encounter Plan of Treatment Upcoming Encounters Date Type Department Care Team (Late st Contact Info) Description 01/04/2025 8:30 AM CDT Appointment [facility] [address] [facility], [place] [id number] Josue Guerra MD [address] [place] [address] Monitored, Cardiac Rehab Subj: Appointment Scheduled 01/04/2025 9:30 AM CDT Appointment [facility] [address] [facility], [place] [id number] Josue Guerra MD [address] [place] [address] Subj: Appointment Scheduled 01/06/2025 8:30 AM CDT Appointment [facility] [address] [facility], [place] [id number] Josue Guerra MD [address] [place] [address] Monitored, Cardiac Rehab Subj: Appointment Scheduled 01/06/2025 9:30 AM CDT Appointment [facility] [address] [facility], [place] [id number] Josue Guerra MD [address] [place] [address] Subj: Appointment Scheduled 01/11/2025 8:30 AM CDT Appointment [facility] [address] [facility] [place] [address] Josue Guerra MD [address] [facility] [place] [address] Monitored, Cardiac Rehab Subj: Appointment Scheduled 01/11/2025 9:30 AM CDT Appointment [facility] [address] [place] [address] Josue Guerra MD [address] [facility] [place] [address] Subj: Appointment Scheduled 01/13/2025 8:30 AM CDT Appointment [facility] [address] [place] [address] Josue Guerra MD [address] [facility] [place] [address] Monitored, Cardiac Rehab Subj: Appointment Scheduled 01/13/2025 9:30 AM CDT Appointment [facility] [address] [place] [address] Josue Guerra MD [address] [facility] [place] [address] Subj: Appointment Scheduled 01/18/2025 8:30 AM CDT Appointment [facility] [address] [place] [address], [place] [address] Josue Guerra MD [address] [facility] [place] [address] Monitored, Cardiac Rehab Subj: Appointment Scheduled 01/18/2025 9:30 AM CDT Appointment [facility] [address] [place] [address], [place] [address] [place] [address] [place] [address], [place] [address] Subj: Appointment Scheduled 01/20/2025 8:30 AM CDT Appointment [facility] [address] [place] [address], [place] [address] [place] [address] [place] [address], [place] [address] Monitored, Cardiac Rehab Subj: Appointment Scheduled 01/20/2025 9:30 AM CDT Appointment [facility] [address] [place] [address], [place] [address] Josue Guerra MD [address] [facility] [place] [address] Subj: Appointment Scheduled 01/25/2025 8:30 AM CDT Appointment [facility] [address] [place] [address], [place] [address] Josue Guerra MD [address] [facility] [place] [address] Monitored, Cardiac Rehab Subj: Appointment Scheduled 01/25/2025 9:30 AM CDT Appointment [facility] [address] [place] [address] Josue Guerra MD [address] [facility] [place] [address] Subj: Appointment Scheduled 01/27/2025 8:30 AM CDT Appointment [facility] [address] [place] [address] Josue Guerra MD [address] [facility] [place] [address] Monitored, Cardiac Rehab Subj: Appointment Scheduled 01/27/2025 9:30 AM CDT Appointment [facility] [address] [place] [address], [place] [address] Josue Guerra MD [address] [facility] [place] [address] Subj: Appointment Scheduled 02/01/2025 8:30 AM CDT Appointment [facility] [address] [place] [address], [place] [address] Josue Guerra MD [address] [facility] [place] [address] Monitored, Cardiac Rehab Subj: Appointment Scheduled 02/01/2025 9:30 AM CDT Appointment [facility] [address] [place] [address], [place] [address] Josue Guerra MD [address] [facility] [place] [address] Subj: Appointment Scheduled 02/03/2025 8:30 AM CDT Appointment [facility] [address] [facility] [place] [address] Josue Guerra MD [address] [facility] [place] [address] Monitored, Cardiac Rehab Subj: Appointment Scheduled 02/03/2025 9:30 AM CDT Appointment [facility] [address] [place] [address] Josue Guerra MD [address] [facility] [place] [address] Subj: Appointment Scheduled 02/08/2025 8:30 AM CDT Appointment [facility] [address] [place] [address] Josue Guerra MD [address] [facility] [place] [address] Monitored, Cardiac Rehab Subj: Appointment Scheduled 02/08/2025 9:30 AM CDT Appointment [facility] [address] [facility] [place] [address] Josue Guerra MD [address] [facility] [place] [address] Subj: Appointment Scheduled 02/10/2025 8:30 AM CDT Appointment [facility] [address] [place] [address] Josue Guerra MD [address] [facility] [place] [address] Monitored, Cardiac Rehab Subj: Appointment Scheduled 02/10/2025 9:30 AM CDT Appointment [facility] [address] [place] [address] Josue Guerra MD [address] [facility] [place] [address] Subj: Appointment Scheduled 02/15/2025 8:30 AM CDT Appointment [facility] [address] [place] [address], [place] [address] Josue Guerra MD [address] [facility] [place] [address] Monitored, Cardiac Rehab Subj: Appointment Scheduled 02/15/2025 9:30 AM CDT Appointment [facility] [address] [place] [address], [place] [address] Josue Guerra MD [address] [facility] [place] [address] Subj: Appointment Scheduled 02/17/2025 8:30 AM CDT Appointment [facility] [address] [place] [address], [place] [address] Josue Guerra MD [address] [facility] [place] [address] Monitored, Cardiac Rehab Subj: Appointment Scheduled 02/17/2025 9:30 AM CDT Appointment [facility] [address] [place] [address] Josue Guerra MD [address] [facility] [place] [address] Subj: Appointment Scheduled 02/22/2025 8:30 AM CDT Appointment [facility] [address] [place] [address], [place] [address] [place] [address] [place] [address], [place] [address] Monitored, Cardiac Rehab Subj: Appointment Scheduled 02/22/2025 9:30 AM CDT Appointment [facility] [address] [place] [address], [place] [address] [place] [address] [place] [address], [place] [address] Subj: Appointment Scheduled 02/24/2025 8:30 AM CDT Appointment [facility] [address] [place] [address], [place] [address] Josue Guerra MD [address] [facility] [place] [address] Monitored, Cardiac Rehab Subj: Appointment Scheduled 02/24/2025 9:30 AM CDT Appointment [facility] [address] [place] [address], [place] [address] Josue Guerra MD [address] [facility] [place] [address] Subj: Appointment Scheduled 03/01/2025 8:30 AM CDT Appointment [facility] [address] [facility] [place] [address] Josue Guerra MD [address] [facility] [place] [address] Monitored, Cardiac Rehab Subj: Appointment Scheduled 03/01/2025 9:30 AM CDT Appointment [facility] [address] [facility] [place] [address] Josue Guerra MD [address] [facility] [place] [address] Subj: Appointment Scheduled 03/03/2025 8:30 AM CDT Appointment [facility] [address] [place] [address] Josue Guerra MD [address] [facility] [place] [address] Monitored, Cardiac Rehab Subj: Appointment Scheduled 03/03/2025 9:30 AM CDT Appointment [facility] [address] [place] [address] Josue Guerra MD [address] [facility] [place] [address] Subj: Appointment Scheduled 03/08/2025 8:30 AM CDT Appointment [facility] [address] [place] [address] Josue Guerra MD [address] [facility] [place] [address] Monitored, Cardiac Rehab Subj: Appointment Scheduled 03/08/2025 9:30 AM CDT Appointment [facility] [address] [facility] [place] [address] Josue Guerra MD [address] [facility] [place] [address] Subj: Appointment Scheduled 03/10/2025 8:30 AM CDT Appointment [facility] [address] [place] [address], [place] [address] [place] [address] [place] [address], [place] [address] Monitored, Cardiac Rehab Subj: Appointment Scheduled 03/10/2025 9:30 AM CDT Appointment [facility] [address] [place] [address], [place] [address] Josue Guerra MD [address] [facility] [place] [address] Subj: Appointment Scheduled 03/15/2025 8:30 AM CDT Appointment [facility] [address] [place] [address] Josue Guerra MD [address] [facility] [place] [address] Monitored, Cardiac Rehab Subj: Appointment Scheduled 03/15/2025 9:30 AM CDT Appointment [facility] [address] [place] [address], [place] [id number] Josue Guerra MD [address] [place] [address] Subj: Appointment Scheduled documented as of this encounter Visit Diagnoses Not on filedocumented in this encounter Care Teams Fender Mechanic Apprentice Relationship Specialty Start Date End Date Brian Corneliajassi Pascal APRN,EARTH SCIENCE TECHNICAL OFFICER [address] [place] [phone] PCP - General Nurse Practitioner Family 11/14/21 Jadon Pelletier MD 06/23/17 Armando Restrepo MD [place] 06/23/17 Jadon Rossi MD [address] [place] [address] Internal Medicine Cardiovascular Disease 01/11/21 Patricia Babb APRN,EARTH SCIENCE TECHNICAL OFFICER [address] [place] [address] Heart Failure Team Nurse Practitioner 03/13/21 Cecilia Crenshaw MD [address] [place] [address] Internal Medicine - Nephrology 07/23/24 Sal Rascon MD [address] [place] [address] Cardiology-Interventional 10/31/24 documented as of this encounter Additional Source Comments PLEASE NOTE: Replies to this message will not be received.[facility]
--- OUTSIDE RECORDS SUMMARY | 2025-01-01 15:16 | XMS_ITS | Encounter Summary ---
Author Organization [employer] [facility] Address [address] [place] [id number] Care Team Providers Care Ergonomics Engineer Name Role Phone Jadon Pelletier MD Unavailable Unavaila Armando Basurto MD Unavailable Jadon Rossi MD Unavailable Patricia Babb APRN,[facility] Unavailable + Cornelia Torres MATHEMATICAL SCIENTIST,[facility] Primary Care Provider + Cecilia Crenshaw MD Unavailabl e Sal Rascon MD Unavailable [phone] Encounter Details Date Type Department Care Team (Latest Contact Info) Description 12/13/2024 Travel Social History Tobacco Use Types Packs/Day [...] doctor or pharmacy? Never 03/17/2024 [facility] Utilities Answer Date Recorded In [...] 03/17/2024 How often do you attend [employer]ur [employer] or christian services? Never 03/17/2024 Do you belong to any clubs o r organizations such as alevism groups, unions, fraternal or athletic groups, or [...] care, and heating? Not very hard 03/17/2024 [facility] [place] [facility] - Occupational Stress [...] any time in the past 12 m [facility], were you homeless or living in a skilled nursing (including now)? No 10/29/2024 Housing Stability Answer [...] any time in the past 12 m [facility], were you homeless or living in a skilled nursing (including now)? 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 [address] Josue Guerra MD [address] [facility] [place] [address] Monitored, Cardiac Rehab Subj: Appointment Scheduled 01/04/2025 9:30 AM CDT Appointment [facility] [address] [facility] [address] Josue Guerra MD [address] [facility] [place] [address] Subj: Appointment Scheduled 01/06/2025 8:30 AM CDT Appointment [facility] [address] [facility] [place] [place] [id number] Josue Guerra MD [address] [facility] [place] [address] Monitored, Cardiac Rehab Subj: Appointment Scheduled 01/06/2025 9:30 AM CDT Appointment [facility] [address] [facility] [place] [address] Josue Guerra MD [address] [facility] [place] [address] Subj: Appointment Scheduled 01/11/2025 8:30 AM CDT Appointment [facility] [address] [facility] [address] Josue Guerra MD [address] [facility] [place] [address] Monitored, Cardiac Rehab Subj: Appointment Scheduled 01/11/2025 9:30 AM CDT Appointment [facility] [address] [place] [address], [place] [address] Josue Guerra MD [address] [facility] [place] [address] Subj: Appointment Scheduled 01/13/2025 8:30 AM CDT Appointment [facility] [address] [place] [address], [place] [address] [place] [address] [place] [address], [place] [address] Monitored, Cardiac Rehab Subj: Appointment Scheduled 01/13/2025 9:30 AM CDT Appointment [facility] [address] [place] [address], [place] [address] Josue Guerra MD [address] [facility] [place] [address] Subj: Appointment Scheduled 01/18/2025 8:30 AM CDT Appointment [facility] [address] [place] [address], [place] [address] Josue Guerra MD [address] [facility] [place] [address] Monitored, Cardiac Rehab Subj: Appointment Scheduled 01/18/2025 9:30 AM CDT Appointment [facility] [address] [facility] [place] [address] Josue Guerra MD [address] [facility] [place] [address] Subj: Appointment Scheduled 01/20/2025 8:30 AM CDT Appointment [facility] [address] [place] [address], [place] [address] [place] [address] [place] [address], [place] [address] Monitored, Cardiac Rehab Subj: Appointment Scheduled 01/20/2025 9:30 AM CDT Appointment [facility] [address] [place] [address], [place] [address] [place] [address] [place] [address], [place] [address] Subj: Appointment Scheduled 01/25/2025 8:30 AM CDT Appointment [facility] [address] [place] [address], [place] [address] Josue Guerra MD [address] [facility] [place] [address] Monitored, Cardiac Rehab Subj: Appointment Scheduled 01/25/2025 9:30 AM CDT Appointment [facility] [address] [place] [address], [place] [address] Josue Guerra MD [address] [facility] [place] [address] Subj: Appointment Scheduled 01/27/2025 8:30 AM CDT Appointment [facility] [address] [place] [address] Josue Guerra MD [address] [facility] [place] [address] Monitored, Cardiac Rehab Subj: Appointment Scheduled 01/27/2025 9:30 AM CDT Appointment [facility] [address] [place] [address] Josue Guerra MD [address] [facility] [place] [address] Subj: Appointment Scheduled 02/01/2025 8:30 AM CDT Appointment [facility] [address] [place] [address], [place] [address] Josue Guerra MD [address] [facility] [place] [address] Monitored, Cardiac Rehab Subj: Appointment Scheduled 02/01/2025 9:30 AM CDT Appointment [facility] [address] [place] [address] Josue Guerra MD [address] [facility] [place] [address] Subj: Appointment Scheduled 02/03/2025 8:30 AM CDT Appointment [facility] [address] [place] [address], [place] [address] Josue Guerra MD [address] [facility] [place] [address] Monitored, Cardiac Rehab Subj: Appointment Scheduled 02/03/2025 9:30 AM CDT Appointment [facility] [address] [place] [address] Josue Guerra MD [address] [facility] [place] [address] Subj: Appointment Scheduled 02/08/2025 8:30 AM CDT Appointment [facility] [address] [place] [address], [place] [address] [place] [address] [place] [address], [place] [address] Monitored, Cardiac Rehab Subj: Appointment Scheduled 02/08/2025 9:30 AM CDT Appointment [facility] [address] [place] [address], [place] [address] Josue Guerra MD [address] [facility] [place] [address] Subj: Appointment Scheduled 02/10/2025 8:30 AM CDT Appointment [facility] [address] [place] [address], [place] [address] Josue Guerra MD [address] [facility] [place] [address] Monitored, Cardiac Rehab Subj: Appointment Scheduled 02/10/2025 9:30 AM CDT Appointment [facility] [address] [place] [address], [place] [address] Josue Guerra MD [address] [facility] [place] [address] Subj: Appointment Scheduled 02/15/2025 8:30 AM CDT Appointment [facility] [address] [place] [address] Josue Guerra MD [address] [facility] [place] [address] Monitored, Cardiac Rehab Subj: Appointment Scheduled 02/15/2025 9:30 AM CDT Appointment [facility] [address] [place] [address], [place] [address] Josue Guerra MD [address] [facility] [place] [address] Subj: Appointment Scheduled 02/17/2025 8:30 AM CDT Appointment [facility] [address] [place] [address], [place] [address] Josue Guerra MD [address] [facility] [place] [address] Monitored, Cardiac Rehab Subj: Appointment Scheduled 02/17/2025 9:30 AM CDT Appointment [facility] [address] [place] [address], [place] [address] Josue Guerra MD [address] [facility] [place] [address] Subj: Appointment Scheduled 02/22/2025 8:30 AM CDT Appointment [facility] [address] [place] [address] Josue Guerra MD [address] [facility] [place] [address] Monitored, Cardiac Rehab Subj: Appointment Scheduled 02/22/2025 9:30 AM CDT Appointment [facility] [address] [place] [address], [place] [address] Josue Guerra MD [address] [facility] [place] [address] Subj: Appointment Scheduled 02/24/2025 8:30 AM CDT Appointment [facility] [address] [place] [address], [place] [address] [place] [address] [place] [address], [place] [address] Monitored, Cardiac Rehab Subj: Appointment Scheduled 02/24/2025 9:30 AM CDT Appointment [facility] [address] [place] [address], [place] [address] Josue Guerra MD [address] [facility] [place] [address] Subj: Appointment Scheduled 03/01/2025 8:30 AM CDT Appointment [facility] [address] [place] [address], [place] [address] Josue Guerra MD [address] [facility] [place] [address] Monitored, Cardiac Rehab Subj: Appointment Scheduled 03/01/2025 9:30 AM CDT Appointment [facility] [address] [place] [address] Josue Guerra MD [address] [facility] [place] [address] Subj: Appointment Scheduled 03/03/2025 8:30 AM CDT Appointment [facility] [address] [place] [address] Josue Guerra MD [address] [facility] [place] [address] Monitored, Cardiac Rehab Subj: Appointment Scheduled 03/03/2025 9:30 AM CDT Appointment [facility] [address] [place] [address] Josue Guerra MD [address] [facility] [place] [address] Subj: Appointment Scheduled 03/08/2025 8:30 AM CDT Appointment [facility] [address] [place] [address] Josue Guerra MD [address] [facility] [place] [address] Monitored, Cardiac Rehab Subj: Appointment Scheduled 03/08/2025 9:30 AM CDT Appointment [facility] [address] [place] [address] Josue Guerra MD [address] [facility] [place] [address] Subj: Appointment Scheduled 03/10/2025 8:30 AM CDT Appointment [facility] [address] [place] [address] Josue Guerra MD [address] [facility] [place] [address] Monitored, Cardiac Rehab Subj: Appointment Scheduled 03/10/2025 9:30 AM CDT Appointment [facility] [address] [place] [address], [place] [address] [place] [address] [place] [address], [place] [address] Subj: Appointment Scheduled 03/15/2025 8:30 AM CDT Appointment [facility] [address] [place] [address], [place] [address] [place] [address] [place] [address], [place] [address] Monitored, Cardiac Rehab Subj: Appointment Scheduled 03/15/2025 9:30 AM CDT Appointment [facility] [address] [place] [address], [place] [address] [place] [address] [place] [address], [place] [address] Subj: Appointment Scheduled documented as of this encounter Visit Diagnoses Not on filedocumented in this encounter Care Teams Ergonomics Engineer Relationship Specialty Start Date End Date Cornelia Torres APRN,[employer] [address] [place] [address] PCP - General Nurse Practitioner Family 11/14/21 Jadon Pelletier MD 06/23/17 Armando Restrepo MD [place] 06/23/17 Jadon Rossi MD [address] [place] [facility] [place] [address] Internal Medicine Cardiovascular Disease 01/11/21 Patricia Babb APRN,[employer] [address] [place] [facility] [place] [address] Heart Failure Team Nurse Practitioner 03/13/21 Cecilia Crenshaw MD [address] [place] [facility] [place] [address] Internal Medicine - Nephrology 07/23/24 Sal Rascon MD [address] [place] [facility] [place] [address] Cardiology-Interventional 10/31/24 documented as of this encounter Additional Source Comments PLEASE NOTE: Replies to this message will not be received.[facility]
--- OUTSIDE RECORDS SUMMARY | 2025-01-01 15:16 | XMS_ITS | Encounter Summary ---
Author Organization [facility] Address [address] [place] [id number] Care Team Providers Care Punch Card Operator Name Role Phone Jadon Pelletier MD Unavailable Unavaila Armando Basurto MD Unavailable Jadon Rossi MD Unavailable [phone] Patricia Babb APRN,[facility] Unavailable + Cornelia Torres COOK HELPER JUICE,[facility] Primary Care Provider + Cecilia Crenshaw MD Unavailabl e Sal Rascon MD Unavailable [phone] Encounter Details Date Type Department Care Team (Late st Contact Info) Description 11/30/2024 Travel Subj: Question naire Submission Social History Tobacco Use Types Packs/Day Years [...] from your doctor or pharmacy? Never 03/17/2024 [facility] Utilities Answer Date Recorded In the [...] How often do you attend chur or faith services? Never 03/17/2024 Do you belong to any clubs o r organizations such as mosque groups, unions, fraternal or athletic groups, or [...] care, and heating? Not very hard 03/17/2024 [facility] [place] [facility] Occupat ional [facility] - Occupational Stress [...] were you homeless or living in a mcc (including now)? No 10/29/2024 Housing Stability Answer [...] were you homeless or living in a mcc (including now)? No 10/29/2024 In the past [...] on file Legal Sex Male 12:44 AM [employer] Gender Identity Not on file Sexual Orientation [...] Description 01/04/2025 8:[address] [facility] [address] [facility], [place] [id number] Josue Guerra MD [address] [facility] [place] [phone] Monitored, Cardiac Rehab Subj: Appointment Scheduled 01/04/2025 9:[address] [facility] [address] [facility], [place] [id number] Josue Guerra MD [address] [facility] [place] [address] Subj: Appointment Scheduled 01/06/2025 8:[address] [facility] [address] [facility], [place] [id number] Josue Guerra MD [address] [facility] [place] [address] Monitored, Cardiac Rehab Subj: Appointment Scheduled 01/06/2025 9:[address] [facility] [address] [place] [address] Josue Guerra MD [address] [facility] [place] [address] Subj: Appointment Scheduled 01/11/2025 8:[address] [facility] [address] [facility], [place] [id number] Josue Guerra MD [address] [facility] [place] [address] Monitored, Cardiac Rehab Subj: Appointment Scheduled 01/11/2025 9:[address] [facility] [address] [place] [address], [place] [address] Josue Guerra MD [address] [place] [address], [place] [address] Subj: Appointment Scheduled 01/13/2025 8:[address] [facility] [address] [place] [address], [place] [address] [place] [address] [place] [address], [place] [address] Monitored, Cardiac Rehab Subj: Appointment Scheduled 01/13/2025 9:[address] [facility] [address] [place] [address], [place] [address] [place] [address] [place] [address], [place] [address] Subj: Appointment Scheduled 01/18/2025 8:[address] [facility] [address] [place] [address], [place] [address] [place] [address] [place] [address], [place] [address] Monitored, Cardiac Rehab Subj: Appointment Scheduled 01/18/2025 9:[address] [facility] [address] [place] [address] Josue Guerra MD [address] [facility] [place] [address] Subj: Appointment Scheduled 01/20/2025 8:[address] [facility] [address] [place] [address], [place] [address] Josue Guerra MD [address] [facility] [place] [address] Monitored, Cardiac Rehab Subj: Appointment Scheduled 01/20/2025 9:[address] [facility] [address] [place] [address], [place] [address] Josue Guerra MD [address] [facility] [place] [address] Subj: Appointment Scheduled 01/25/2025 8:[address] [facility] [address] [place] [address], [place] [address] Josue Guerra MD [address] [facility] [place] [address] Monitored, Cardiac Rehab Subj: Appointment Scheduled 01/25/2025 9:[address] [facility] [address] [place] [address], [place] [address] Josue Guerra MD [address] [facility] [place] [address] Subj: Appointment Scheduled 01/27/2025 8:[address] [facility] [address] [facility] [place] [place] [address] Josue Guerra MD [address] [facility] [place] [address] Monitored, Cardiac Rehab Subj: Appointment Scheduled 01/27/2025 9:[address] [facility] [address] [place] [address], [place] [address] Josue Guerra MD [address] [facility] [place] [address] Subj: Appointment Scheduled 02/01/2025 8:[address] [facility] [address] [place] [address], [place] [address] Josue Guerra MD [address] [facility] [place] [address] Monitored, Cardiac Rehab Subj: Appointment Scheduled 02/01/2025 9:[address] [facility] [address] [place] [address], [place] [address] Josue Guerra MD [address] [facility] [place] [address] Subj: Appointment Scheduled 02/03/2025 8:[address] [facility] [address] [place] [address], [place] [address] Josue Guerra MD [address] [facility] [place] [address] Monitored, Cardiac Rehab Subj: Appointment Scheduled 02/03/2025 9:[address] [facility] [address] [place] [address], [place] [address] Josue Guerra MD [address] [facility] [place] [address] Subj: Appointment Scheduled 02/08/2025 8:[address] [facility] [address] [place] [address], [place] [address] Josue Guerra MD [address] [facility] [place] [address] Monitored, Cardiac Rehab Subj: Appointment Scheduled 02/08/2025 9:[address] [facility] [address] [place] [address], [place] [address] Josue Guerra MD [address] [facility] [place] [address] Subj: Appointment Scheduled 02/10/2025 8:[address] [facility] [address] [place] [address], [place] [address] Josue Guerra MD [address] [facility] [place] [address] Monitored, Cardiac Rehab Subj: Appointment Scheduled 02/10/2025 9:[address] [facility] [address] [place] [address] Josue Guerra MD [address] [facility] [place] [address] Subj: Appointment Scheduled 02/15/2025 8:[address] [facility] [address] [place] [address], [place] [address] Josue Guerra MD [address] [facility] [place] [address] Monitored, Cardiac Rehab Subj: Appointment Scheduled 02/15/2025 9:[address] [facility] [address] [place] [address], [place] [address] Josue Guerra MD [address] [facility] [place] [address] Subj: Appointment Scheduled 02/17/2025 8:[address] [facility] [address] [place] [address], [place] [address] Josue Guerra MD [address] [facility] [place] [address] Monitored, Cardiac Rehab Subj: Appointment Scheduled 02/17/2025 9:[address] [facility] [address] [place] [address], [place] [address] Josue Guerra MD [address] [facility] [place] [address] Subj: Appointment Scheduled 02/22/2025 8:[address] [facility] [address] [facility] [place] [place] [address] Josue Guerra MD [address] [facility] [place] [address] Monitored, Cardiac Rehab Subj: Appointment Scheduled 02/22/2025 9:[address] [facility] [address] [place] [address] Josue Guerra MD [address] [facility] [place] [address] Subj: Appointment Scheduled 02/24/2025 8:[address] [facility] [address] [place] [address] Josue Guerra MD [address] [facility] [place] [address] Monitored, Cardiac Rehab Subj: Appointment Scheduled 02/24/2025 9:[address] [facility] [address] [place] [address] Josue Guerra MD [address] [facility] [place] [address] Subj: Appointment Scheduled 03/01/2025 8:[address] [facility] [address] [place] [address] Josue Guerra MD [address] [facility] [place] [address] Monitored, Cardiac Rehab Subj: Appointment Scheduled 03/01/2025 9:[address] [facility] [address] [place] [address] [place] [address] [place] [address], [place] [address] Subj: Appointment Scheduled 03/03/2025 8:[address] [facility] [address] [place] [address], [place] [address] [place] [address] [place] [address], [place] [address] Monitored, Cardiac Rehab Subj: Appointment Scheduled 03/03/2025 9:[address] [facility] [address] [place] [address], [place] [address] Josue Guerra MD [address] [facility] [place] [address] Subj: Appointment Scheduled 03/08/2025 8:[address] [facility] [address] [place] [address], [place] [address] Josue Guerra MD [address] [facility] [place] [address] Monitored, Cardiac Rehab Subj: Appointment Scheduled 03/08/2025 9:[address] [facility] [address] [place] [address], [place] [address] Josue Guerra MD [address] [facility] [place] [address] Subj: Appointment Scheduled 03/10/2025 8:[address] [facility] [address] [place] [address], [place] [address] Josue Guerra MD [address] [facility] [place] [address] Monitored, Cardiac Rehab Subj: Appointment Scheduled 03/10/2025 9:[address] [facility] [address] [place] [address], [place] [address] [place] [address] [place] [address] Subj: Appointment Scheduled 03/15/2025 8:[address] [facility] [address] [place] [address], [place] [address] [place] [address] [place] [address], [place] [address] Monitored, Cardiac Rehab Subj: Appointment Scheduled 03/15/2025 9:[address] [facility] [address] [place] [address], [place] [phone] [place] [address] [place] [address] Subj: Appointment Scheduled documented as of this encounter Visit Diagnoses Not on filedocumented in this encounter Care Teams Punch Card Operator Relationship Specialty Start Date End Date Cornelia Torres, COOK HELPER JUICE,SENIOR BOILER OPERATOR [address] [place] [id number] PCP - General Nurse Practitioner Family 11/14/21 Jadon Pelletier MD 06/23/17 Armando Restrepo MD [place] 06/23/17 Jadon Rossi MD [address] [place] [address] Internal Medicine Cardiovascular Disease 01/11/21 Patricia Babb, ADRIAN,SENIOR BOILER OPERATOR [address] [place] [place] [address] Heart Failure Team Nurse Practitioner 03/13/21 Cecilia Crenshaw MD [address] [place] [place] [address] Internal Medicine - Nephrology 07/23/24 Sal Rascon MD [address] [place] [place] [address] Cardiology-Interventional 10/31/24 documented as of this encounter Additional Source Comments PLEASE NOTE: Replies to this message will not be received.[facility]
--- OUTSIDE RECORDS SUMMARY | 2025-01-01 15:16 | XMS_ITS | Encounter Summary ---
Author Organization [facility] Address [address] [place] [id number] Care Team Providers Care Feeder Tender Name Role Phone Jadon Pelletier MD Unavailable Unavaila Armando Basurto MD Unavailable Jadon Rossi MD Unavailable Patricia Babb APRN,[facility] Unavailable + Cornelia Torres WAREHOUSE DRIVER,[facility] Primary Care Provider + Cecilia Crenshaw MD Unavailabl e Sal Rascon MD Unavailable [phone] Encounter Details Date Type Department Care Team (Latest Contact Info) Description 12/05/2024 Travel Social History Tobacco Use Types Packs/Day [...] 03/17/2024 How often do you attend chur [employer] or judaism services? Never 03/17/2024 Do you belong to any clubs o r organizations such as restorationist groups, unions, fraternal or athletic groups, or [...] care, and heating? 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 [address] Josue Guerra MD [address] [place] [address] Monitored, Cardiac Rehab Subj: Appointment Scheduled 01/04/2025 9:30 AM CDT Appointment [facility] [address] [facility] [place] [address] Josue Guerra MD [address] [place] [place] [address] Subj: Appointment Scheduled 01/06/2025 8:30 AM CDT Appointment [facility] [address] [facility] [place] [place] [id number] Josue Guerra MD [address] [place] [address] Monitored, Cardiac Rehab Subj: Appointment Scheduled 01/06/2025 9:30 AM CDT Appointment [facility] [address] [facility] [place] [address] Josue Guerra MD [address] [facility] [place] [address] Subj: Appointment Scheduled 01/11/2025 8:30 AM CDT Appointment [facility] [address] [facility] [place] [address] Josue Guerra MD [address] [place] [address] Monitored, Cardiac Rehab Subj: Appointment Scheduled 01/11/2025 9:30 AM CDT Appointment [facility] [address] [place] [address], [place] [address] Josue Guerra MD [address] [place] [address] Subj: Appointment Scheduled 01/13/2025 8:30 AM CDT Appointment [facility] [address] [place] [address], [place] [address] [place] [address] [place] [address], [place] [address] Monitored, Cardiac Rehab Subj: Appointment Scheduled 01/13/2025 9:30 AM CDT Appointment [facility] [address] [place] [address], [place] [address] Josue Guerra MD [address] [place] [address] Subj: Appointment Scheduled 01/18/2025 8:30 AM CDT Appointment [facility] [address] [place] [address], [place] [address] Josue Guerra MD [address] [place] [address] Monitored, Cardiac Rehab Subj: Appointment Scheduled 01/18/2025 9:30 AM CDT Appointment [facility] [address] [place] [address] Josue Guerra MD [address] [place] [address] Subj: Appointment Scheduled 01/20/2025 8:30 AM CDT Appointment [facility] [address] [place] [address], [place] [address] [place] [address] [place] [address], [place] [address] Monitored, Cardiac Rehab Subj: Appointment Scheduled 01/20/2025 9:30 AM CDT Appointment [facility] [address] [place] [address], [place] [address] [place] [address] [place] [address], [place] [address] Subj: Appointment Scheduled 01/25/2025 8:30 AM CDT Appointment [facility] [address] [place] [address], [place] [address] Josue Guerra MD [address] [place] [address] Monitored, Cardiac Rehab Subj: Appointment Scheduled 01/25/2025 9:30 AM CDT Appointment [facility] [address] [place] [address], [place] [address] Josue Guerra MD [address] [place] [address] Subj: Appointment Scheduled 01/27/2025 8:30 AM CDT Appointment [facility] [address] [place] [address] Josue Guerra MD [address] [place] [address] Monitored, Cardiac Rehab Subj: Appointment Scheduled 01/27/2025 9:30 AM CDT Appointment [facility] [address] [place] [address] Josue Guerra MD [address] [place] [address] Subj: Appointment Scheduled 02/01/2025 8:30 AM CDT Appointment [facility] [address] [place] [address], [place] [address] Josue Guerra MD [address] [place] [address] Monitored, Cardiac Rehab Subj: Appointment Scheduled 02/01/2025 9:30 AM CDT Appointment [facility] [address] [place] [address] Josue Guerra MD [address] [place] [address] Subj: Appointment Scheduled 02/03/2025 8:30 AM CDT Appointment [facility] [address] [place] [address], [place] [address] Josue Guerra MD [address] [place] [address] Monitored, Cardiac Rehab Subj: Appointment Scheduled 02/03/2025 9:30 AM CDT Appointment [facility] [address] [place] [address] Josue Guerra MD [address] [place] [address] Subj: Appointment Scheduled 02/08/2025 8:30 AM CDT Appointment [facility] [address] [place] [address], [place] [address] [place] [address] [place] [address], [place] [address] Monitored, Cardiac Rehab Subj: Appointment Scheduled 02/08/2025 9:30 AM CDT Appointment [facility] [address] [place] [address], [place] [address] Josue Guerra MD [address] [place] [address] Subj: Appointment Scheduled 02/10/2025 8:30 AM CDT Appointment [facility] [address] [place] [address], [place] [address] Josue Guerra MD [address] [place] [address] Monitored, Cardiac Rehab Subj: Appointment Scheduled 02/10/2025 9:30 AM CDT Appointment [facility] [address] [place] [address], [place] [address] Josue Guerra MD [address] [place] [address] Subj: Appointment Scheduled 02/15/2025 8:30 AM CDT Appointment [facility] [address] [place] [address] Josue Guerra MD [address] [place] [address] Monitored, Cardiac Rehab Subj: Appointment Scheduled 02/15/2025 9:30 AM CDT Appointment [facility] [address] [place] [address], [place] [address] Josue Guerra MD [address] [place] [address] Subj: Appointment Scheduled 02/17/2025 8:30 AM CDT Appointment [facility] [address] [place] [address], [place] [address] Josue Guerra MD [address] [place] [address] Monitored, Cardiac Rehab Subj: Appointment Scheduled 02/17/2025 9:30 AM CDT Appointment [facility] [address] [place] [address], [place] [address] Josue Guerra MD [address] [place] [address] Subj: Appointment Scheduled 02/22/2025 8:30 AM CDT Appointment [facility] [address] [place] [address] Josue Guerra MD [address] [place] [address] Monitored, Cardiac Rehab Subj: Appointment Scheduled 02/22/2025 9:30 AM CDT Appointment [facility] [address] [place] [address], [place] [address] Josue Guerra MD [address] [place] [address] Subj: Appointment Scheduled 02/24/2025 8:30 AM CDT Appointment [facility] [address] [place] [address], [place] [address] [place] [address] [place] [address], [place] [address] Monitored, Cardiac Rehab Subj: Appointment Scheduled 02/24/2025 9:30 AM CDT Appointment [facility] [address] [place] [address], [place] [address] Josue Guerra MD [address] [place] [address] Subj: Appointment Scheduled 03/01/2025 8:30 AM CDT Appointment [facility] [address] [place] [address], [place] [address] Josue Guerra MD [address] [place] [address] Monitored, Cardiac Rehab Subj: Appointment Scheduled 03/01/2025 9:30 AM CDT Appointment [facility] [address] [place] [address] Josue Guerra MD [address] [place] [address] Subj: Appointment Scheduled 03/03/2025 8:30 AM CDT Appointment [facility] [address] [place] [address] Josue Guerra MD [address] [place] [address] Monitored, Cardiac Rehab Subj: Appointment Scheduled 03/03/2025 9:30 AM CDT Appointment [facility] [address] [place] [address] Josue Guerra MD [address] [place] [address] Subj: Appointment Scheduled 03/08/2025 8:30 AM CDT Appointment [facility] [address] [place] [address] Josue Guerra MD [address] [place] [address] Monitored, Cardiac Rehab Subj: Appointment Scheduled 03/08/2025 9:30 AM CDT Appointment [facility] [address] [place] [address] Josue Guerra MD [address] [place] [address] Subj: Appointment Scheduled 03/10/2025 8:30 AM CDT Appointment [facility] [address] [place] [address] Josue Guerra MD [address] [place] [address] Monitored, Cardiac Rehab Subj: Appointment Scheduled 03/10/2025 9:30 AM CDT Appointment [facility] [address] [place] [address], [place] [address] [place] [address] [place] [address], [place] [address] Subj: Appointment Scheduled 03/15/2025 8:30 AM CDT Appointment [facility] [address] [place] [address], [place] [address] [place] [address] [place] [address], [place] [address] Monitored, Cardiac Rehab Subj: Appointment Scheduled 03/15/2025 9:30 AM CDT Appointment [facility] [address] [place] [address], [place] [address] [place] [address] [place] [address], [place] [address] Subj: Appointment Scheduled documented as of this encounter Visit Diagnoses Not on filedocumented in this encounter Care Teams Feeder Tender Relationship Specialty Start Date End Date Cornelia Torres APRN,[employer] [address] [place] [phone] PCP - General Nurse Practitioner Family 11/14/21 Jadon Pelletier MD 06/23/17 Armando Restrepo [place] 06/23/17 Jadon Rossi MD [address] [place] [address] Internal Medicine Cardiovascular Disease 01/11/21 Patricia Babb APRN,[employer] [address] [place] [place] [address] Heart Failure Team Nurse Practitioner 03/13/21 Cecilia Crenshaw MD [address] [place] [facility] [place] [address] Internal Medicine - Nephrology 07/23/24 Sal Rascon MD [address] [place] [place] [address] Cardiology-Interventional 10/31/24 documented as of this encounter Additional Source Comments PLEASE NOTE: Replies to this message will not be received.[facility]
--- OUTSIDE RECORDS SUMMARY | 2025-01-01 15:16 | XMS_ITS | Encounter Summary ---
Author Organization [employer] Address [address] [place] [id number] Care Team Providers Care Supervisor Drawing Name Role Phone Jadon Pelletier MD Unavailable Unavaila Armando Basurto MD Unavailable Jadon Rossi MD Unavailable Patricia Babb CASHIER AND SALESPERSON,[facility] Unavailable + Cornelia Torres CASHIER AND SALESPERSON,[facility] Primary Care Provider + Cecilia Crenshaw MD Unavailabl e Sal Rascon MD Unavailable [phone] Reason for Visit * Reason Onset Date Comments Medication Questions 11/24/2024 Encounter Details Date Type Department Care Team (Late st Contact Info) Description 11/24/2024 Telephone [place] [address] [place] [phone] Sowmya Joe CMA Chief Comp: Medication Questions Social History Tobacco Use Types Packs/Day Years [...] from your doctor or pharmacy? Never 03/17/2024 [facility] Utilities Answer Date Recorded In the [...] often do you attend chur ch or lutheran services? Never 03/17/2024 Do you belong to any clubs o r organizations such as gnosticism groups, unions, fraternal or athletic groups, or [...] care, and heating? 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 Daniella Iglesias Cnp, Cornelia Nurse [place] Caller: Unspecified (Today, 2:50 PM) Pt requesting a call back. Questions on the polar bear prescriptions Director Of Financial Planning contacted [facility] and states they received the prescription but they did not receiveRich's Payment. Director Of Financial Planning informed Tariq the information will be faxed again to [facility] and they will be contacted and informed of said fax with payment information. Tariq agrees with this plan. Write contacted [facility], placed order, pharmacist states they will ship medication out within the next couple days. Director Of Financial Planning contacted Tariq and informed him of prescription being worked on and shipped. Tariq thanks physician underwriter for the call and states no further questions. Time spent: 5 minutes. * Telephone Encounter - Sowmya Joe CMA - 11/24/2024 5:04 PM CDT Returned call and informed patient [facility] Informed patient he should contact [facility] at . Patient states he will contact [facility] tomorrow and call if there is anything needed from theclinic. * Telephone Encounter - Sowmya Joe CMA - 11/24/2024 5:03 PM CDT ----- Message from Anne sent at 11/24/2024 8:51 AM CDT ----- Regarding: hasn't received meds yet Tariq said he had a hospital fu with SN on 11/10 and prescription for Flovent-- was sent to [facility] in [place] and he said he still hasn't received the meds. He said they sent him something state fill out form on line--he did that and still hasn't gotten meds. He is almost out of med. Please checkinto this for him and contact him. documented in this encounter Plan of Treatment Upcoming Encounters Date Type Department Care Team (Late st Contact Info) Description 01/04/2025 8:30 AM CDT Appointment [facility] [address] [place] [address] [id number] [place] [address] [place] [phone] Monitored, Cardiac Rehab Subj: Appointment Scheduled 01/04/2025 9:30 AM CDT Appointment [facility] [address] [place] [address] [place] [address] [place] [phone] Subj: Appointment Scheduled 01/06/2025 8:30 AM CDT Appointment [facility] [address] [place] [address] [phone] [place] [address] [place] [phone] Monitored, Cardiac Rehab Subj: Appointment Scheduled 01/06/2025 9:30 AM CDT Appointment [facility] [address] [place] [phone] Josue Guerra MD [address] [facility] [place] [address] Subj: Appointment Scheduled 01/11/2025 8:30 AM CDT Appointment [facility] [address] [place] [address], [place] [address] Josue Guerra MD [address] [facility] [place] [address] Monitored, Cardiac Rehab Subj: Appointment Scheduled 01/11/2025 9:30 AM CDT Appointment [facility] [address] [place] [address], [place] [address] Josue Guerra MD [address] [facility] [place] [address] Subj: Appointment Scheduled 01/13/2025 8:30 AM CDT Appointment [facility] [address] [place] [address], [place] [address] Josue Guerra MD [address] [facility] [place] [address] Monitored, Cardiac Rehab Subj: Appointment Scheduled 01/13/2025 9:30 AM CDT Appointment [facility] [address] [place] [address], [place] [address] Josue Guerra MD [address] [facility] [place] [address] Subj: Appointment Scheduled 01/18/2025 8:30 AM CDT Appointment [facility] [address] [place] [address], [place] [address] Josue Guerra MD [address] [facility] [place] [address] Monitored, Cardiac Rehab Subj: Appointment Scheduled 01/18/2025 9:30 AM CDT Appointment [facility] [address] [place] [address], [place] [address] [place] [address] [place] [address], [place] [address] Subj: Appointment Scheduled 01/20/2025 8:30 AM CDT Appointment [facility] [address] [place] [address], [place] [address] Josue Guerra MD [address] [facility] [place] [address] Monitored, Cardiac Rehab Subj: Appointment Scheduled 01/20/2025 9:30 AM CDT Appointment [facility] [address] [place] [address], [place] [address] Josue Guerra MD [address] [facility] [place] [address] Subj: Appointment Scheduled 01/25/2025 8:30 AM CDT Appointment [facility] [address] [place] [address], [place] [address] Josue Guerra MD [address] [facility] [place] [address] Monitored, Cardiac Rehab Subj: Appointment Scheduled 01/25/2025 9:30 AM CDT Appointment [facility] [address] [place] [address] Josue Guerra MD [address] [place] [address] Subj: Appointment Scheduled 01/27/2025 8:30 AM CDT Appointment [facility] [address] [place] [facility] [address] Josue Guerra MD [address] [facility] [place] [address] Monitored, Cardiac Rehab Subj: Appointment Scheduled 01/27/2025 9:30 AM CDT Appointment [facility] [address] [facility] [address] Josue Guerra MD [address] [facility] [place] [address] Subj: Appointment Scheduled 02/01/2025 8:30 AM CDT Appointment [facility] [address] [place] [address] Josue Guerra MD [address] [facility] [place] [address] Monitored, Cardiac Rehab Subj: Appointment Scheduled 02/01/2025 9:30 AM CDT Appointment [facility] [address] [place] [address] Josue Guerra MD [address] [facility] [place] [address] Subj: Appointment Scheduled 02/03/2025 8:30 AM CDT Appointment [facility] [address] [place] [address] Josue Guerra MD [address] [facility] [place] [address] Monitored, Cardiac Rehab Subj: Appointment Scheduled 02/03/2025 9:30 AM CDT Appointment [facility] [address] [place] [address], [place] [address] [place] [address] [place] [phone] Subj: Appointment Scheduled 02/08/2025 8:30 AM CDT Appointment [facility] [address] [place] [address], [place] [address] Josue Guerra MD [address] [facility] [place] [address] Monitored, Cardiac Rehab Subj: Appointment Scheduled 02/08/2025 9:30 AM CDT Appointment [facility] [address] [place] [address], [place] [address] Josue Guerra MD [address] [facility] [place] [address] Subj: Appointment Scheduled 02/10/2025 8:30 AM CDT Appointment [facility] [address] [place] [address], [place] [address] Josue Guerra MD [address] [facility] [place] [address] Monitored, Cardiac Rehab Subj: Appointment Scheduled 02/10/2025 9:30 AM CDT Appointment [facility] [address] [place] [address], [place] [address] [place] [address] [place] [address], [place] [address] Subj: Appointment Scheduled 02/15/2025 8:30 AM CDT Appointment [facility] [address] [place] [address], [place] [address] [place] [address] [place] [address], [place] [address] Monitored, Cardiac Rehab Subj: Appointment Scheduled 02/15/2025 9:30 AM CDT Appointment [facility] [address] [place] [address], [place] [address] [place] [address] [place] [address], [place] [address] Subj: Appointment Scheduled 02/17/2025 8:30 AM CDT Appointment [facility] [address] [place] [address], [place] [address] [place] [address] [place] [place] [address], [place] [address] Monitored, Cardiac Rehab Subj: Appointment Scheduled 02/17/2025 9:30 AM CDT Appointment [facility] [address] [place] [address] Josue Guerra MD [address] [facility] [place] [address] Subj: Appointment Scheduled 02/22/2025 8:30 AM CDT Appointment [facility] [address] [place] [address] Josue Guerra MD [address] [facility] [place] [address] Monitored, Cardiac Rehab Subj: Appointment Scheduled 02/22/2025 9:30 AM CDT Appointment [facility] [address] [place] [address], [place] [address] Josue Guerra MD [address] [facility] [place] [address] Subj: Appointment Scheduled 02/24/2025 8:30 AM CDT Appointment [facility] [address] [place] [address], [place] [address] Josue Guerra MD [address] [facility] [place] [address] Monitored, Cardiac Rehab Subj: Appointment Scheduled 02/24/2025 9:30 AM CDT Appointment [facility] [address] [place] [address], [place] [address] Josue Guerra MD [address] [facility] [place] [address] Subj: Appointment Scheduled 03/01/2025 8:30 AM CDT Appointment [facility] [address] [facility] [place] [address] Josue Guerra MD [address] [place] [address] Monitored, Cardiac Rehab Subj: Appointment Scheduled 03/01/2025 9:30 AM CDT Appointment [facility] [address] [facility] [address] Josue Guerra MD [address] [facility] [place] [address] Subj: Appointment Scheduled 03/03/2025 8:30 AM CDT Appointment [facility] [address] [facility] [address] Josue Guerra MD [address] [facility] [place] [address] Monitored, Cardiac Rehab Subj: Appointment Scheduled 03/03/2025 9:30 AM CDT Appointment [facility] [address] [facility] [address] Josue Guerra MD [address] [facility] [place] [address] Subj: Appointment Scheduled 03/08/2025 8:30 AM CDT Appointment [facility] [address] [facility] [address] Josue Guerra MD [address] [facility] [place] [address] Monitored, Cardiac Rehab Subj: Appointment Scheduled 03/08/2025 9:30 AM CDT Appointment [facility] [address] [place] [address] Josue Guerra MD [address] [facility] [place] [address] Subj: Appointment Scheduled 03/10/2025 8:30 AM CDT Appointment [facility] [address] [place] [address], [place] [address] [place] [address] [place] [address], [place] [address] Monitored, Cardiac Rehab Subj: Appointment Scheduled 03/10/2025 9:30 AM CDT Appointment [facility] [address] [place] [address] Josue Guerra MD [address] [facility] [place] [address] Subj: Appointment Scheduled 03/15/2025 8:30 AM CDT Appointment [facility] [address] [place] [address], [place] [address] Josue Guerra MD [address] [facility] [place] [address] Monitored, Cardiac Rehab Subj: Appointment Scheduled 03/15/2025 9:30 AM CDT Appointment [facility] [address] [place] [phone] Josue Guerra MD [address] [place] [address] Subj: Appointment Scheduled documented as of this encounter Visit Diagnoses Not on filedocumented in this encounter Care Teams Supervisor Drawing Relationship Specialty Start Date End Date Cornelia Torres APRN,TUBE TELLER [address] [place] [phone] PCP - General Nurse Practitioner Family 11/14/21 Jadon Pelletier MD 06/23/17 Armando Restrepo MD [place] 06/23/17 Jadon Rossi MD [address] [place] [address] Internal Medicine Cardiovascular Disease 01/11/21 Patricia Babb APRN,TUBE TELLER [address] [place] [address] Heart Failure Team Nurse Practitioner 03/13/21 Cecilia Crenshaw MD [address] [place] [address] Internal Medicine - Nephrology 07/23/24 Sal Rascon MD [address] [place] [address] Cardiology-Interventional 10/31/24 documented as of this encounter Additional Source Comments PLEASE NOTE: Replies to this message will not be received.[facility]
--- OUTSIDE RECORDS SUMMARY | 2025-01-01 15:17 | XMS_ITS | Clinical Summary ---
Author Organization [facility] Address [address] [place] [id number] Care Team Providers Care Risk Analyst Name Role Phone No Ref-Primary, Physician Primary Care Provider Allergies Active Allergy Reactions Criticality Noted Date Comments Cats 08/02/2002 Dogs 08/02/2002 Dust Mites 12/01/2000 Medications FLOVENT AERO 110 MCG/ACT IN 2 puffs BID (Twice per day) Active DOXAZOSIN MESYLATE TABS 2 MG OR 1 TABLET DAILY 30 0 1 Active NINA 60 MG OR CAPS 1 qd prn Active ASPIRIN 81 MG OR TABS 1 tab po QD (Once per day) Active NASONEX 50 MCG/ACT NA SUSP 2 sprays each nostril Once daily for allergies Active Encounters Date Type Department Care Team Description 10/29/2024 6:52 PM CDT - 10/29/2024 8:14 PM CDT Emergency [facility] Emergency Dept [address] [facility] [place] [phone] elevation myocardial infarction (STEMI), unspecified artery (H) Discharge Disposition: Another Health Care Institution with Planned Hospital IP Readmission 10/29/2024 Travel from Last 3 Months Immunizations Immunization Administration Dates Next Due Influenza (IIV3) PF 04/16/2002,04/06/2001,2000 Social History Tobacco Use Types Packs/Day Years Used Date Smoking Tobacco: Never Smokeless Tobacco: Never Tobacco Cessation:Counseling Given: Not Answered Alcohol Use Standard Drinks/Week Comments Never 0 (1 standard drink = 0.6 oz pur e alcohol) Adolescent Education Answer Date Record ed Getting School Help Needed Not on file 02/22 Sex and Gender Information Value Date Recorded Sex Assigned at Not on file 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 Gender Identity Not on file Sexual Orientation Not on file Last Filed Vital Signs Vital Sign Reading Time Taken Comments Blood Pressure 146/80 10/29/2024 8:00 PM CDT Pulse 90 10/29/2024 8:00 PM CDT Temperature 36.8 C (98.2 F) 10/29/2024 7:06 PM CDT Respiratory Rate 19 10/29/2024 8:00 PM CDT Oxygen Saturation 97% 10/29/2024 8:00 PM CDT Inhaled Oxygen Concentration - - Weight 106.6 kg (235 lb) 10/29/2024 7:38 PM CDT Height - - Body Mass Index - - Plan of Treatment Health Maintenance Due Date Last Done Comments ADVANCE CARE PLANNING 1956 ANNUAL REVIEW OF HM ORDERS 1956 CT COLONOGRAPHY 1956 FIT 1956 FLEX SIG 1956 sDNA (Cologuard) 1956 HEPATITIS C SCREENING 1974 PNEUMOCOCCAL VACCINE 50+ YEARS (1 of 2 - PCV) 10/07/1975 LIPID 1996 RSV VACCINE (1 - Risk 60-74 years 1-dose series) 2016 DTAP/TDAP/TD VACCINE (2 - Td or Tdap) 08/05/2021 08/06/2011 FALL RISK ASSESSMENT 2021 COVID-19 VACCINE ( - season) 2024 PHQ-2 (once per calendar year) 2024 INFLUENZA VACCINE (#1) 2025 , 05/24/2019, 04/16/2002, Additional history exists MEDICARE ANNUAL WELLNESS VISIT 03/24/2025 03/24/2024, 12/31/2022 DIABETES SCREENING 10/30/2027 10/29/2024, 01/26/2002 COLONOSCOPY 11/26/2027 11/25/2017 COLORECTAL CANCER SCREENING 11/26/2027 ZOSTER VACCINE Completed 11/17/2017, 09/06/2017 HPV VACCINE (No Doses Required) Completed MENINGITIS VACCINE Aged Out No longer eligible based on patient's age to complete this topic Procedures Procedure Name Priority Date/Time Associated Diagnosis Comments XR CHEST PORT 1 VIEW STAT 10/29/2024 7:53 PM CDT EKG 12-LEAD, TRACING ONLY STAT 10/29/2024 7:25 PM CDT CBC WITH PLATELETS & DIFFERENTIAL STAT 10/29/2024 7:14 PM CDT CBC WITH PLATELETS AND DIFFERENTIAL STAT 10/29/2024 7:14 PM CDT MAGNESIUM STAT 10/29/2024 7:14 PM CDT TROPONIN T, HIGH SENSITIVITY STAT 10/29/2024 7:14 PM CDT LIPASE STAT 10/29/2024 7:14 PM CDT COMPREHENSIVE METABOLIC PANEL STAT 10/29/2024 7:14 PM CDT EKG 12-LEAD, TRACING ONLY STAT 10/29/2024 6:55 PM CDT from Last 3 Months Results * XR Chest Port 1 View (10/29/2024 7:53 PM CDT) Anatomical Region Laterality Modality Chest Computed Radiogr aphy 10/29/2024 7:53 PM CDT Impressions 10/29/2024 8:04 PM CDT IMPRESSION: No focal airspace consolidation. No pleural effusion or pneumothorax. Heart size is normal. Narrative 10/29/2024 8:04 PM CDT EXAM: XR CHEST PORT 1 VIEW LOCATION: [facility] DATE: 10/29/2024 INDICATION: Chest pain. COMPARISON: None available. Procedure Note Ti Saxena MD - 10/29/2024 EXAM: XR CHEST PORT 1 VIEW LOCATION: [facility] DATE: 10/29/2024 INDICATION: Chest pain. COMPARISON: None available. IMPRESSION: No focal airspace consolidation. No pleural effusion orpneumothorax. Heart size is normal. Imtiaz George MD IMG DIAGNOSTIC IMAGING ORDERAB LES Final Result * EKG 12-lead, tracing only (10/29/2024 7:25 PM CDT) Only the most recent of2 resultswithin the time period is included. Systolic Blood Pressure mmHg RADIOLOGY RESULTS Diastolic Blood Pressure mmHg RADIOLOGY RESULTS Ventricular Rate 91 BPM RAD IOLOGY RESULTS Atrial Rate 91 BPM RADIOLOG Y RESULTS IA Interval 186 ms RADIOLOG Y RESULTS QRS Duration 90 ms RADIOLO GY RESULTS QT 372 ms RADIOLOGY RESULTS QTc 457 ms RADIOLOGY RESULTS P [place] 62 degrees RADIOLOGY RESULTS R AXIS 105 degrees RADIOLOGY RESULTS T [place] 38 degrees RADIOLOGY RESULTS Interpretation ECG Sinus rhythm with occasional Premature ventricular complexes Low voltage QRS Anterolateral infarct , possibly acute ACUTE CT / STEMI Abnormal ECG When compared with ECG of 29-Oct-2024 18:55, (unconfirmed) Premature ventricular complexes are now Present QRS axis Shifted right ST elevation has replaced ST depression in Anterior leads Confirmed by SEE ED PROVIDER NOTE FOR, ECG INTERPRETATION ([id number]), magazine editor Ovi Barber ([id number]) on 10/29/2024 11:40:33 PM RADIOLOGY RESULTS 10/29/2024 7:25 PM CDT 10/29/2024 11:40 PM CDT Imtiaz George MD ECG ORDERABLES Edited Result - Final RADIOLOGY RESULTS * (ABNORMAL) CBC with platelets and differential (10/29/2024 7:14 PM CDT) WBC Count 11.3(H) 4.0 - 11.0 10e3/uL 10/29/2024 7:20 PM CDT [facility] RBC Count 4.99 4.40 - 5.90 10e6/uL 10/29/2024 7:20 PM CDT [facility] Hemoglobin 14.3 13.3 - 17.7 g/dL 10/29/2024 7:20 PM CDT [facility] Hematocrit 41.2 40.0 - 53.0 % 10/29/2024 7:20 PM CDT [facility] MCV 83 78 - 100 fL 10/29/2024 7:20 PM CDT [facility] MCH 28.7 26.5 - 33.0 pg 10/29/2024 7:20 PM CDT [facility] MCHC 34.7 31.5 - 36.5 g/dL 10/29/2024 7:20 PM CDT [facility] RDW 13.4 10.0 - 15.0 % 10/29/2024 7:20 PM CDT [facility] Platelet Count 248 150 - 450 10e3/uL 10/29/2024 7:20 PM CDT [facility] % Neutrophils 43 % 10/29/2024 7:20 PM CDT [facility] % Lymphocytes 38 % 10/29/2024 7:20 PM CDT [facility] % Monocytes 12 % 10/29/2024 7:20 PM CDT [facility] % Eosinophils 5 % 10/29/2024 7:20 PM CDT [facility] % Basophils 1 % 10/29/2024 7:20 PM CDT [facility] % Immature Granulocytes 0 % 10/29/2024 7:20 PM CDT [facility] NRBCs per 100 WBC 0 <1 /100 025 7:20 PM CDT [facility] Absolute Neutrophils 4.9 1.6 - 8.3 10e3/uL 10/29/2024 7:20 PM CDT [facility] Absolute Lymphocytes 4.3 0.8 - 5.3 10e3/uL 10/29/2024 7:20 PM CDT [facility] Absolute Monocytes 1.4(H) 0.0 - 1.3 10e3/uL 10/29/2024 7:20 PM CDT [facility] Absolute Eosinophils 0.6 0.0 - 0.7 10e3/uL 10/29/2024 7:20 PM CDT [facility] Absolute Basophils 0.1 0.0 - 0.2 10e3/uL 10/29/2024 7:20 PM CDT [facility] Absolute Immature Granulocytes 0.0 <=0.4 10e3/uL 10/29/2024 7:20 PM CDT [facility] Absolute NRBCs 0.0 10e3/uL 10/29/2024 7:20 PM CDT [facility] Blood STRUCTURE OF RIGHT UPPER LIMB / Unknown Venipuncture / Unknown 10/29/2024 7:14 PM CDT 10/29/2024 7:17 PM CDT Imtiaz George MD LAB - BLOOD ORDERABLES Final R esult Performing Organization Address City/[facility]/ZIP Co de Phone Number [facility] [address] [facility] (Main level, no room number) [place] [address] * Troponin T, High Sensitivity (10/29/2024 7:14 PM CDT) Troponin T, High Sensitivity 17 <=22 ng/L 10/29/2024 7:38 PM CDT [facility] Comment: Either a High Sensitivity Troponin T baseline (0 hours) value = 100 ng/L, or an increase in High Sensitivity Troponin T = 7 ng/L at 2 hours compared to 0 hours (2-0 hours), suggests myocardial injury, and urgent clinical attention is required. If the 2-0 hours increase is <7 ng/L, a High Sensitivity Troponin T result above gender-specific reference ranges warrants further evaluation. Recommendations for further evaluation include correlation with clinical decision-making tool (e.g., HEART), a 3rd High Sensitivity Troponin T test 2 hours after the 2nd (a 20% change from baseline would represent concern), admission for observation, close PCC/cardiology follow-up, or urgent outpatient provocative testing. Blood STRUCTURE OF RIGHT UPPER LIMB / Unknown Venipuncture / Unknown 10/29/2024 7:14 PM CDT 10/29/2024 7:17 PM CDT us Imtiaz George MD LAB - BLOOD ORDERABLES Final R esult [facility] [address] [facility] (Main level, no room number) [place] [address] * Magnesium (10/29/2024 7:14 PM CDT) Magnesium 2.2 1.7 - 2.3 mg/dL 10/29/2024 7:38 PM CDT [facility] Blood STRUCTURE OF RIGHT UPPER LIMB / Unknown Venipuncture / Unknown 10/29/2024 7:14 PM CDT 10/29/2024 7:17 PM CDT Imtiaz George MD LAB - BLOOD ORDERABLES Final R esult [facility] [address] [facility] (Main level, no room number) [place] [phone] * Lipase (10/29/2024 7:14 PM CDT) Lipase 43 13 - 60 U/L 10/29/2024 7:38 PM CDT [facility] Blood STRUCTURE OF RIGHT UPPER LIMB / Unknown Venipuncture / Unknown 10/29/2024 7:14 PM CDT 10/29/2024 7:17 PM CDT Imtiaz George MD LAB - BLOOD ORDERABLES Final R esult [facility] [address] [place] [address] Lab (Main level, no room number) [place] [address] * (ABNORMAL) Comprehensive metabolic panel (10/29/2024 7:14 PM CDT) Sodium 141 135 - 145 mmol/L 10/29/2024 7:38 PM CDT [facility] Potassium 3.9 3.4 - 5.3 mmol/L 10/29/2024 7:38 PM CDT [facility] Carbon Dioxide (CO2) 23 22 - 29 mmol/L 10/29/2024 7:38 PM CDT [facility] Anion Gap 14 7 - 15 mmol/L 10/29/2024 7:38 PM CDT [facility] Urea Nitrogen 23.6(H) 8.0 - 23.0 mg/dL 10/29/2024 7:38 PM CDT [facility] Creatinine 1.69(H) 0.67 - 1.17 mg/dL 10/29/2024 7:38 PM CDT [facility] GFR Estimate 44(L) >60 mL/min/1.7 3m2 10/29/2024 7:38 PM CDT [facility] Comment:eGFR calculated us2020 CKD-EPI equation. Calcium 9.7 8.8 - 10.4 mg/dL 10/29/2024 7:38 PM CDT [facility] Chloride 104 98 - 107 mmol/L 10/29/2024 7:38 PM CDT [facility] Glucose 123(H) 70 - 99 mg/dL 10/29/2024 7:38 PM CDT [facility] Alkaline Phosphatase 132 40 - 150 U/L 10/29/2024 7:38 PM CDT [facility] AST 29 0 - 45 U/L 10/29/2024 7:38 PM CDT [facility] ALT 38 0 - 70 U/L 10/29/2024 7:38 PM CDT [facility] Protein Total 8.0 6.4 - 8.3 g/dL 10/29/2024 7:38 PM CDT [facility] Albumin 4.6 3.5 - 5.2 g/dL 10/29/2024 7:38 PM CDT [facility] Bilirubin Total 0.4 <=1.2 mg/dL 10/29/2024 7:38 PM CDT [facility] Blood STRUCTURE OF RIGHT UPPER LIMB / Unknown Venipuncture / Unknown 10/29/2024 7:14 PM CDT 10/29/2024 7:17 PM CDT us Imtiaz George MD LAB - BLOOD ORDERABLES Final R esult [facility] [address] [facility] (Main level, no room number) [place] [address], [facility] from Last 3 [place] [id number] Care Teams Risk Analyst Relationship Specialty Start Date End Date No Ref-Primary, Physician PCP - General Clinic 05/05/22
--- OUTSIDE RECORDS SUMMARY | 2025-01-01 15:17 | XMS_ITS | Referral Summary ---
Author Organization [facility] Address [address] [place] [address] Care Team Providers Care Baby Registry Sales Consultant Name Role Phone Jadon Pelletier MD Unavailable Unavaila Armando Basurto MD Unavailable Jadon Rossi MD Unavailable Patricia Babb CABLE MOCK UP ASSEMBLER,[facility] Unavailable + Cornelia Torres CABLE MOCK UP ASSEMBLER,[facility] Primary Care Provider + Cecilia Crenshaw MD Unavailabl e Sal Rascon MD Unavailable [phone] Encounters Date Type Department Care Team Description 12/23/2024 8:16 AM CDT - 12/23/2024 11:59 PM CDT Hospital Encounter [facility] Card[facility] Rehab [address] [place] [address] Josue Guerra MD Monitored, Cardiac Rehab Subj: Appointment Scheduled Discharge Disposition: Discharge Home 12/21/2024 8:11 AM CDT - 12/21/2024 11:59 PM CDT Hospital Encounter [facility] Card[facility] [address] [place] [address] Josue Guerra MD Monitored, Cardiac Rehab Subj: Questionnaire Submission Discharge Disposition: Discharge Home 12/20/2024 Travel 12/16/2024 Travel Subj: Question radhaire Submission 12/14/2024 8:15 AM CDT - 12/14/2024 11:59 PM CDT Hospital Encounter [facility] Cardiac Rehab [address] [place] [address] Josue Guerra MD Monitored, Cardiac Rehab Subj: Appointment Scheduled Discharge Disposition: Discharge Home 12/13/2024 Travel 12/09/2024 8:16 AM CDT - 12/09/2024 11:59 PM CDT Hospital Encounter [facility] Card[facility] Rehab [address] [place] [address] Josue Guerra MD Monitored, Cardiac Rehab Subj: Appointment Scheduled Discharge Disposition: Discharge Home 12/09/2024 1:00 PM CDT Office Visit [facility] [address] [place], [place] [id number] Susanne Thomson, [facility] Dx: Coronary artery disease involving soboba coronary artery of soboba heart without angina pectoris (Primary Dx) 12/07/2024 8:09 AM CDT - 12/07/2024 11:59 PM CDT Hospital Encounter [facility] Cardiac Rehab [address] [place] [address] Josue Guerra MD Monitored, Cardiac Rehab Subj: Appointment Scheduled Discharge Disposition: Discharge Home 12/05/2024 Travel 12/02/2024 8:11 AM CDT - 12/02/2024 11:59 PM CDT Hospital Encounter [facility] Card[facility] Rehab [address] [place] [address] Josue Guerra MD Monitored, Cardiac Rehab Subj: Questionnaire Submission Discharge Disposition: Discharge Home 11/30/2024 Travel Subj: Question naire Submission 11/30/2024 8:15 AM CDT - 11/30/2024 11:59 PM CDT Hospital Encounter [facility] Cardiac Rehab [address] [place] [address] Josue Guerra MD Monitored, Cardiac Rehab Subj: Questionnaire Submission Discharge Disposition: Discharge Home 11/25/2024 8:14 AM CDT - 11/25/2024 11:59 PM CDT Hospital Encounter [facility] Card[facility] Rehab [address] [place] [address] Josue Guerra MD Monitored, Cardiac Rehab Subj: Appointment Scheduled Discharge Disposition: Discharge Home 11/24/[address] [phone] Sowmya Joe CMA Chief Comp: Medication Questions 11/23/2024 Travel 11/23/2024 7:40 AM CDT - 11/23/2024 11:59 PM CDT Hospital Encounter [facility] Cardiac Rehab [address] [place] [address] Josue Guerra MD Monitored, Cardiac Rehab Subj: Questionnaire Submission Discharge Disposition: Discharge Home 11/18/2024 Results Follow-Up [address] [address] Cornelia Torres, CABLE MOCK UP ASSEMBLER,LUMBER STACKER OPERATOR BASIC METABOLIC PANEL, COMPLETE BLOOD COUNT AND DIFFERENTIAL 11/18/2024 6:45 AM CDT - 11/18/2024 11:59 PM CDT Hospital Encounter [facility] Cardiac Rehab [address] [place] [address] Josue Guerra MD Monitored, Cardiac Rehab Subj: Appointment Scheduled Discharge Disposition: Discharge Home 11/16/2024 Telephone [facility] [address] [place] [address] Jailyn Goldman RN Dx: ST elevation myocardial infarction involving left anterior descending (LAD) coronary artery (HCC) (Primary Dx) 11/16/[address] [address] Sowmya Joe CMA Chief Comp: Medication Questions 11/16/2024 8:08 AM CDT - 11/16/2024 11:59 PM CDT Hospital Encounter [facility] Cardiac Rehab [address] [place] [address] Josue Guerra MD Monitored, Cardiac Rehab Subj: Appointment Scheduled Discharge Disposition: Discharge Home 11/10/2024 Future Orders [facility] [address] [place] [phone] Darren Rodriguez PsyD,CHRISTINA Dx: Stress (Primary Dx) 11/10/2024 2:30 PM CDT Office Visit [address] [address] Cornelia Torres APRN,LUMBER STACKER OPERATOR Dx: NSTEMI (non-ST elevated myocardial infarction) (HCC) (Primary Dx) 11/10/2024 9:37 AM CDT - 11/10/2024 11:59 PM CDT Hospital Encounter [facility] Cardiac Rehab [address] [place] [address] Josue Guerra MD Dx: ST elevation myocardial infarction involving left anterior descending (LAD) coronary artery (HCC) (Primary Dx) Discharge Disposition: Discharge Home 11/03/[address] [address] Lourdes Montoya RN Dx: ST elevation myocardial infarction involving left anterior descending (LAD) coronary artery (HCC) (Primary Dx) 11/01/[address] [phone] Sowmya Joe CMA Chief Comp: TCM (Transition of Care Management) 11/01/2024 Patient Message [address] Subj: Heart Healthy Diet Recommendations 11/01/2024 Results Follow-Up [facility] Cardiac Intensive Care [address] [place] [address] Georgina Osman RN ECG, ECG 10/29/2024 8:30 PM CDT - 10/31/2024 1:37 PM CDT Hospital Encounter [facility] Telemetry [address] [place] [address] Sal Rascon MD Marek, Paul L, MD,[facility] Dx: ST elevation myocardial infarction involving left anterior descending (LAD) coronary artery (HCC) (Primary Dx) Discharge Disposition: Discharge Home 10/29/2024 Travel from Last 3 Months Allergies Active Allergy Reactions Criticality Noted Date Comments Lisinopril Cough 04/11/2014 Metformin Other Low 01/08/2022 Swollen lymph nodes Medications cetirizine (AKA: ZYRTEC) 10 mg oral Tablet Take 1 Tablet (10 mg) by mouth in the morning. Active aspirin (CHILDREN'S ASPIRIN) 81 mg oral Tablet, ChewableIndicat ions:NSTEMI (non-ST elevated myocardial infarction) (HCC) Chew and Swallow 1 Tablet (81 mg) by mouth once daily. 0 01/12/20 21 Active PAP MACHINEIndicati ons:Obstructive sleep apnea syndrome,Sleep apnea, unspecified type,Daytime sleepiness Equipment Prescribed: Autopap, 5-15 cm H20. Estimated Length of Need: 99 months (99 = Lifetime). May change the size or style of mask, headgear, or spacers to help patient comfort and compliance. 1 Each 12/11/19 23 Active PARoxetine (PAXIL) 10 mg oral TabletIndicatio ns:MARY (generalized anxiety disorder) Take 1 Tablet (10 mg) by mouth in the morning. 90 Tablet 3 03/24/20 24 025 Active nitroglycerin (NITROSTAT) 0.4 mg sublingual Tablet, SublingualIndic ations:NSTEMI (non-ST elevated myocardial infarction) (HCC) DISSOLVE 1 TABLET UNDER TONGUE NEEDED FOR CHEST PAIN MAY REPEAT EVERY 5 MINUTES FOR A MAXIMUM OF 3 DOSES 25 Tablet 2 07/09/19 25 Active other (unlisted) Cellergize by [employer] Wave Active cholecalciferol (VITAMIN D3) 5,000 unit oral TabletIndicatio ns:Vitamin D deficiency Take 1 Tablet (5,000 Units) by mouth in the morning. 07/23/19 25 Active prasugreL HCl (EFFIENT) 10 mg oral TabletIndicatio ns:ST elevation myocardial infarction involving left anterior descending (LAD) coronary artery (HCC) Take 1 Tablet (10 mg) by mouth in the morning. 90 Tablet 3 5 12:46 PM CDT 11/02/19 25 026 Active atorvastatin (LIPITOR) 80 mg oral TabletIndicatio ns:ST elevation myocardial infarction involving left anterior descending (LAD) coronary artery (HCC) Take 1 Tablet (80 mg) by mouth at bedtime. 90 Tablet 3 5 12:46 PM CDT 11/01/19 25 026 Active fluticasone propionate (FLOVENT HFA) 110 mcg/actuation inhalation HFA Aerosol InhalerIndicati ons:Mild persistent asthma without complication (HCC) 2 Puffs by inhalation route in the morning and 2 Puffs in the evening. 12 g 11 11/11/19 25 026 Active carvediloL (COREG) 6.25 mg oral TabletIndicatio ns:ST elevation myocardial infarction involving left anterior descending (LAD) coronary artery (HCC) Take 1 Tablet (6.25 mg) by mouth in the morning and 1 Tablet (6.25 mg) in the evening. 11/17/19 25 026 Active fluticasone furoate (ARNUITY ELLIPTA) 100 mcg/actuation inhalation Disk with DeviceIndicatio ns:Mild persistent asthma without complication (HCC) 1 Inhalation by inhalation route in the morning. 90 Each 09/03/19 25 025 Discontinued(T herapy Completed) empagliflozin (JARDIANCE) 10 mg oral TabletIndicatio ns:ST elevation myocardial infarction involving left anterior descending (LAD) coronary artery (HCC) Take 1 Tablet (10 mg) by mouth in the morning. 90 Tablet 3 11/02/19 25 025 Discontinued pantoprazole (PROTONIX) 40 mg oral Tablet, Delayed Release (E.C.)Indicatio ns:ST elevation myocardial infarction involving left anterior descending (LAD) coronary artery (HCC) Take 1 Tablet (40 mg) by mouth at bedtime. 60 Tablet 5 12:46 PM CDT 11/01/19 25 025 Active Problems Problem Noted Date Diagnosed Date Ischemic cardiomyopathy 10/31/2024 STEMI (ST elevation myocardial infarction) 10/29 MARY (generalized anxiety disorder) 09/10/2024 Type 2 diabetes mellitus wit h circulatory disorder, without long-term current use of insulin 03/24/2024 Obstructive sleep apnea syndrome 09/24/2022 S/P coronary artery stent placement 09/24/2022 Atherosclerosis of soboba co ronary artery of soboba heart with stable angina pectoris 09/24/2022 Pain 01/11/2021 Overweight 01/11/2021 Chest pain 01/09/2021 Acute non-Q wave non-ST elev ation myocardial infarction (NSTEMI) 01/09/2021 Hypertensive emergency 01/09/2021 Dyslipidemia 01/09/2021 Coronary atherosclerosis 01/09/2021 Overview (11/14/2021): 01/10/21 MARCIAL OM (2.5 x 26 resolute Armando) Blood glucose abnormal 05/12/2020 Obesity 11/24/2018 Anxiety 10/17/2017 Mixed hyperlipidemia 10/17/2017 Obstructive sleep apnea of adult 10/17/2017 Asthma 04/11/2014 Allergic rhinitis 04/11/2014 Hypertensive disorder 04/11/2014 Other acute otitis externa 04/11/2014 Other seborrheic keratosis 04/11/2014 Sleep apnea Resolved Problems Problem Noted Date Diagnosed Date Resolved Date GERD (gastroesophageal reflux disease) 04/11/2014 03/24/2024 Alcohol abuse 04/11/2014 03/24/2024 Immunizations Immunization Administration Dates Next Due Hepatitis A Vaccine, IM, Adult (> 19 yrs) 2011,12/04/2009 Influenza Vac, IM, Quadrival ent Preserv Free, (>6 months) 05/10/2020,05/24/2019 Influenza Vac, IM, Trivalent (>3 Yrs) 04/16/2002 ,04/06/2001,06/09/2000 Tdap Vaccine, IM, (Adacel)(Boostrix) 08/06/2011 Varicella Vaccine, IM (Shingrix) 11/17/2017,10/25,09/06/2017 Social History Tobacco Use Types Packs/Day Years Used Date Smoking Tobacco: Former Cigarettes 1 20 0 05/26/1980 - 05/26/2000 Smokeless Tobacco: Former Quit: 2004 Tobacco Cessation:Counseling Given: Not Answered Alcohol Use Standard Drinks/Week Comments No 0 (1 standard drink = 0.6 oz pur e alcohol) B1300 Health Literacy Answer Date Recor ded How often do you need to hav e someone help you when you read instructions, pamphlets, or other written material from your doctor or pharmacy? Never 03/17/2024 [facility] Utilities Answer Date Recorded In the past 12 months has e [employer], oil, or water [employer] threatened to shut off services in your [...] How often do you attend chur or mormon services? Never 03/17/2024 Do you belong to any clubs o r organizations such as christian groups, unions, fraternal or athletic groups, or [...] care, and heating? Not very hard 03/17/2024 [facility] Stress Questionnaire Answer Date Recorded [...] any time in the past 12 m [facility], were you homeless or living in [...] any time in the past 12 m [facility], were you homeless or living in [...] on file Legal Sex Male 12:44 AM [employer] O[employer] Gender Identity Not on file Sexual Orientation Not on file Last Filed Vital Signs Vital Sign Reading Time Taken Comments Blood Pressure 118/75 12/09/2024 12:57 PM CDT Pulse 65 12/09/2024 12:57 PM CDT Temperature 36.8 C (98.3 F) 10/31/2024 11:16 AM CDT Respiratory Rate 20 10/31/2024 11:16 AM CDT Oxygen Saturation 96% 12/09/2024 12:57 PM CDT Inhaled Oxygen Concentration - - Weight 100.7 kg (222 lb) 12/09/2024 12:57 PM CDT Height 177.8 cm (5' 10) 12/09/2024 12:57 PM CDT Body Mass Index 31.85 12/09/2024 12:57 PM CDT Functional Status * Are you deaf or do you have serious difficulty hearing? Answer Date of Assessment Author No 10/29/2024 11:00 PM CDT Mine Siegel RN * Are you blind or do you have serious difficulty seeing, even when wearing glasses? Answer Date of Assessment Author No 10/29/2024 11:00 PM CDT Mine Siegel RN * Do you have serious difficulty walking or climbing stairs? Answer Date of Assessment Author No 10/29/2024 11:00 PM CDT Mine Siegel RN * Do you have difficulty dressing or bathing? Answer Date of Assessment Author No 10/29/2024 11:00 PM CDT Mine Siegel RN * Do you have difficulty doing errands alone such as visiting a doctor's office or shopping because of a physical, mental, or emotional condition? Answer Date of Assessment Author No 10/29/2024 11:00 PM CDT Mine iSegel RN Mental Status * Do you have trouble concentrating, remembering, or making decisions because of a physical, mental, or emotional condition? Answer Entry Date Author No 10/29/2024 11:00 PM Mine Ibanez RN Plan of Treatment Upcoming Encounters Date Type Department Care Team (Late st Contact Info) Description 01/04/2025 8:30 AM CDT Appointment [facility] Cardiac Rehab [address] [place] [address] Josue Guerra MD [address] [place] [phone] Monitored, Cardiac Rehab Subj: Appointment Scheduled 01/04/2025 9:30 AM CDT Appointment [facility] Card[facility]hab [address] [facility] [place] [address] Josue Guerra MD [address] [place] [address] Subj: Appointment Scheduled 01/06/2025 8:30 AM CDT Appointment [facility] Cardiac Rehab [address] [place] [address] Josue Guerra MD [address] [place] [address] Monitored, Cardiac Rehab Subj: Appointment Scheduled 01/06/2025 9:30 AM CDT Appointment [facility] Cardiac Rehab [address] [place] [address], [place] [address] Josue Guerra MD [address] [place] [address] Subj: Appointment Scheduled 01/11/2025 8:30 AM CDT Appointment [facility] Cardiac Rehab [address] [place] [address], [place] [address] Josue Guerra MD [address] [place] [address] Monitored, Cardiac Rehab Subj: Appointment Scheduled 01/11/2025 9:30 AM CDT Appointment [facility] Card[facility] Rehab [address] [place] [address], [place] [address] Josue Guerra MD [address] [place] [address] Subj: Appointment Scheduled 01/13/2025 8:30 AM CDT Appointment [facility] Cardiac Rehab [address] [place] [address] Josue Guerra MD [address] [place] [address] Monitored, Cardiac Rehab Subj: Appointment Scheduled 01/13/2025 9:30 AM CDT Appointment [facility] Cardiac Rehab [address] [place] [address], [place] [address] [place] [address] [place] [address], [place] [address] Subj: Appointment Scheduled 01/18/2025 8:30 AM CDT Appointment [facility] Cardiac Rehab [address] [place] [address], [place] [address] [place] [address] [place] [address], [place] [address] Monitored, Cardiac Rehab Subj: Appointment Scheduled 01/18/2025 9:30 AM CDT Appointment [facility] Card[facility] Rehab [address] [place] [address], [place] [address] Josue Guerra MD [address] [place] [address] Subj: Appointment Scheduled 01/20/2025 8:30 AM CDT Appointment [facility] Card[facility] Rehab [address] [place] [address], [place] [address] Josue Guerra MD [address] [place] [address] Monitored, Cardiac Rehab Subj: Appointment Scheduled 01/20/2025 9:30 AM CDT Appointment [facility] [address] [place] [address] Josue Guerra MD [address] [place] [address] Subj: Appointment Scheduled 01/25/2025 8:30 AM CDT Appointment [facility] Card[facility] Rehab [address] [place] [address] Josue Guerra MD [address] [place] [address] Monitored, Cardiac Rehab Subj: Appointment Scheduled 01/25/2025 9:30 AM CDT Appointment [facility] Card[facility]hab [address] [place] [address] Josue Guerra MD [address] [place] [address] Subj: Appointment Scheduled 01/27/2025 8:30 AM CDT Appointment [facility] Card[facility] Rehab [address] [place] [address] Josue Guerra MD [address] [place] [address] Monitored, Cardiac Rehab Subj: Appointment Scheduled 01/27/2025 9:30 AM CDT Appointment [facility] Card[facility] Rehab [address] [place] [address], [place] [address] Josue Guerra MD [address] [place] [address] Subj: Appointment Scheduled 02/01/2025 8:30 AM CDT Appointment [facility] Card[facility] Rehab [address] [place] [address], [place] [address] Josue Guerra MD [address] [place] [address] Monitored, Cardiac Rehab Subj: Appointment Scheduled 02/01/2025 9:30 AM CDT Appointment [facility] Cardiac Rehab [address] [place] [address], [place] [address] [place] [address] [place] [address], [place] [address] Subj: Appointment Scheduled 02/03/2025 8:30 AM CDT Appointment [facility] Cardiac Rehab [address] [place] [address], [place] [address] Josue Guerra MD [address] [place] [address] Monitored, Cardiac Rehab Subj: Appointment Scheduled 02/03/2025 9:30 AM CDT Appointment [facility] Card[facility] Rehab [address] [place] [address], [place] [address] Josue Guerra MD [address] [place] [address] Subj: Appointment Scheduled 02/08/2025 8:30 AM CDT Appointment [facility] Card[facility] Rehab [address] [place] [address], [place] [address] Josue Guerra MD [address] [place] [address] Monitored, Cardiac Rehab Subj: Appointment Scheduled 02/08/2025 9:30 AM CDT Appointment [facility] [address] [place] [address], [place] [address] Josue Guerra MD [address] [place] [address] Subj: Appointment Scheduled 02/10/2025 8:30 AM CDT Appointment [facility] Rehab [address] [place] [address], [place] [address] Josue Guerra MD [address] [place] [address] Monitored, Cardiac Rehab Subj: Appointment Scheduled 02/10/2025 9:30 AM CDT Appointment [facility] [address] [place] [address], [place] [address] Josue Guerra MD [address] [place] [address] Subj: Appointment Scheduled 02/15/2025 8:30 AM CDT Appointment [facility]hab [address] [place] [address], [place] [address] Josue Guerra MD [address] [place] [address] Monitored, Cardiac Rehab Subj: Appointment Scheduled 02/15/2025 9:30 AM CDT Appointment [facility] [address] [facility] [place] [address] Josue Guerra MD [address] [facility] [address] Subj: Appointment Scheduled 02/17/2025 8:30 AM CDT Appointment [facility] [address] [place] [address] Josue Guerra MD [address] [place] [address] Monitored, Cardiac Rehab Subj: Appointment Scheduled 02/17/2025 9:30 AM CDT Appointment [facility] [address] [place] [address] Josue Guerra MD [address] [place] [address] Subj: Appointment Scheduled 02/22/2025 8:30 AM CDT Appointment [facility] Card[facility]hab [address] [place] [address] Josue Guerra MD [address] [place] [address] Monitored, Cardiac Rehab Subj: Appointment Scheduled 02/22/2025 9:30 AM CDT Appointment [facility] [address] [facility] [place] [address] Josue Guerra MD [address] [place] [address] Subj: Appointment Scheduled 02/24/2025 8:30 AM CDT Appointment [facility] [address] [facility] [place] [address] Josue Guerra MD [address] [place] [address] Monitored, Cardiac Rehab Subj: Appointment Scheduled 02/24/2025 9:30 AM CDT Appointment [facility] [address] [facility] [place] [address] Josue Guerra MD [address] [place] [address] Subj: Appointment Scheduled 03/01/2025 8:30 AM CDT Appointment [facility]hab [address] [place] [address] Josue Guerra MD [address] [place] [address] Monitored, Cardiac Rehab Subj: Appointment Scheduled 03/01/2025 9:30 AM CDT Appointment [facility] [address] [place] [address] Josue Guerra MD [address] [place] [address] Subj: Appointment Scheduled 03/03/2025 8:30 AM CDT Appointment [facility] Cardiac Rehab [address] [place] [address], [place] [address] Josue Guerra MD [address] [place] [address] Monitored, Cardiac Rehab Subj: Appointment Scheduled 03/03/2025 9:30 AM CDT Appointment [facility]hab [address] [place] [address], [place] [address] Josue Guerra MD [address] [place] [address] Subj: Appointment Scheduled 03/08/2025 8:30 AM CDT Appointment [facility] Card[facility] Rehab [address] [place] [address], [place] [address] Josue Guerra MD [address] [place] [address] Monitored, Cardiac Rehab Subj: Appointment Scheduled 03/08/2025 9:30 AM CDT Appointment [facility] Card[facility]hab [address] [place] [address], [place] [address] Josue Guerra MD [address] [place] [address] Subj: Appointment Scheduled 03/10/2025 8:30 AM CDT Appointment [facility] Card[facility] Rehab [address] [place] [address], [place] [address] Josue Guerra MD [address] [place] [address] Monitored, Cardiac Rehab Subj: Appointment Scheduled 03/10/2025 9:30 AM CDT Appointment [facility] Cardiac Rehab [address] [facility], [place] [id number] Josue Guerra MD [address] [place] [phone] Subj: Appointment Scheduled 03/15/2025 8:30 AM CDT Appointment [facility] Cardiac Rehab [address] [facility], [place] [id number] Josue Guerra MD [address] [place] [id number] Monitored, Cardiac Rehab Subj: Appointment Scheduled 03/15/2025 9:30 AM CDT Appointment [facility] Cardiac Rehab [address] [facility], [place] [id number] Josue Guerra MD [address] [place] [phone] Subj: Appointment Scheduled Procedures Procedure Name Priority Date/Time Associated Diagnosis Comments GLUCOSE, POC Routine 11/30/2024 9:27 AM CDT GLUCOSE, POC Routine 11/30/2024 8:30 AM CDT GLUCOSE, POC Routine 11/25/2024 9:30 AM CDT GLUCOSE, POC Routine 11/25/2024 8:32 AM CDT GLUCOSE, POC Routine 11/23/2024 9:31 AM CDT GLUCOSE, POC Routine 11/23/2024 8:31 AM CDT GLUCOSE, POC Routine 11/18/2024 7:59 AM CDT GLUCOSE, POC Routine 11/18/2024 6:54 AM CDT GLUCOSE, POC Routine 11/16/2024 9:33 AM CDT GLUCOSE, POC Routine 11/16/2024 8:33 AM CDT COMPLETE BLOOD COUNT AND DIFFERENTIAL Routine 11/10/2024 2:56 PM CDT NSTEMI (non-ST elevated myocardial infarction) (HCC) Type 2 diabetes mellitus with other circulatory complication, without long-term current use of insulin (HCC) Primary hypertension Mixed hyperlipidemia Mild persistent asthma without complication (HCC) COMPLETE BLOOD COUNT AND DIFFERENTIAL Routine 11/10/2024 2:56 PM CDT NSTEMI (non-ST elevated myocardial infarction) (HCC) Type 2 diabetes mellitus with other circulatory complication, without long-term current use of insulin (HCC) Primary hypertension Mixed hyperlipidemia Mild persistent asthma without complication (HCC) BASIC METABOLIC PANEL Routine 11/10/2024 2:56 PM CDT NSTEMI (non-ST elevated myocardial infarction) (HCC) Type 2 diabetes mellitus with other circulatory complication, without long-term current use of insulin (HCC) Primary hypertension Mixed hyperlipidemia Mild persistent asthma without complication (HCC) BASIC METABOLIC PANEL Routine 10/31/2024 10:16 AM CDT CARDIAC RHYTHM STRIP 10/31/2024 7:18 AM CDT CARDIAC RHYTHM STRIP 10/30/2024 10:33 PM CDT ECHOCARDIOGRAM TRANSTHORACIC ADULT WITH OR WITHOUT CONTRAST Routine 10/30/2024 9:44 AM CDT CARDIAC RHYTHM STRIP 10/30/2024 8:51 AM CDT ECG Timed 10/30/2024 7:02 AM CDT COMPLETE BLOOD COUNT AND DIFFERENTIAL Routine 10/30/2024 5:01 AM CDT COMPLETE BLOOD COUNT AND DIFFERENTIAL Routine 10/30/2024 5:01 AM CDT BASIC METABOLIC PANEL Routine 10/30/2024 5:01 AM CDT GLUCOSE, POC Routine 10/29/2024 11:34 PM CDT ECG STAT 10/29/2024 9:43 PM CDT ACTIVATED CLOTTING TIME, POC Routine 10/29/2024 9:01 PM CDT INVASIVE CARDIOLOGY PROCEDURE LOG 10/29/2024 8:41 PM CDT CARDIAC CATHETERIZATION Routine 10/29/2024 8:11 PM CDT LIPID PANEL Routine 09/10/2024 8:19 AM CDT Mixed hyperlipidemia GLYCOSYLATED HEMOGLOBIN, A1C Routine 09/10/2024 8:19 AM CDT Type 2 diabetes mellitus with other circulatory complication, without long-term current use of insulin (HCC) Primary hypertension Mixed hyperlipidemia Mild persistent asthma without complication (HCC) Atherosclerosis of soboba coronary artery of soboba heart with stable angina pectoris MARY (generalized anxiety disorder) Obstructive sleep apnea of adult PROTEIN/CREATININE RATIO, URINE Routine 07/23/2024 12:50 PM [employer]PER[employer] Elevated serum creatinine Stage 3 chronic kidney disease, unspecified whether stage 3a or 3b CKD (HCC) COLONOSCOPY Routine 11/25/2017 7:39 AM CDT from Last 3 Months or Most Recently Relevant to Health Maintenance Results * (ABNORMAL) GLUCOSE, POC (11/30/2024 9:27 AM CDT) Only the most recent of11 resultswithin the time period is included. Glucose by Meter 109(H) 70 - 100 mg/dL 11/30/2024 9:39 AM CDT [facility] Comment:Blood, Capil Blood CAPILLARY BLOOD / Unknown 11/30/2024 9:27 AM CDT 11/30/2024 9:39 AM CDT us Josue Guerra MD LAB POINT OF CA RE TEST DOCKED DEVICE UNSOLICITED RESULTS Final Result [facility] [address] [place] [address], [place] [phone] * COMPLETE BLOOD COUNT AND DIFFERENTIAL (11/10/2024 2:56 PM CDT) Only the most recent of2 resultswithin the time period is included. WBC Count 9.6 3.9 - 11.9 10(3)/uL 11/10/2024 3:24 PM CDT [facility] RBC Count 4.75 4.08 - 5.79 10(6)/uL 11/10/2024 3:24 PM CDT [facility] Hemoglobin 14.0 13.1 - 17.1 g/dL 11/10/2024 3:24 PM CDT [facility] Hematocrit 40.5 38.7 - 51.4 % 11/10/2024 3:24 PM CDT [facility] MCV 85.3 82.9 - 100.6 fL 11/10/2024 3:24 PM CDT [facility] MCH 29.6 27.6 - 33.2 pg 11/10/2024 3:24 PM CDT [facility] MCHC 34.7 32.0 - 36.0 g/dL 11/10/2024 3:24 PM CDT [facility] RDW 13.3 12.8 - 16.2 % 11/10/2024 3:24 PM CDT [facility] Platelets 269 179 - 450 10(3)/uL 11/10/2024 3:24 PM CDT [facility] MPV 9.2 7.4 - 10.4 fL 11/10/2024 3:24 PM CDT [facility] % Neutrophils 58.3 43.0 - 80.0 % 11/10/2024 3:24 PM CDT [facility] % Lymphocytes 28.0 16.0 - 49.0 % 11/10/2024 3:[address] [facility] % Monocytes 9.2 0.0 - 10.0 % 11/10/2024 3:[address] [facility] % Eosinophils 4.0 0.0 - 7.0 % 11/10/2024 3:[address] [facility] % Basophils 0.6 0.0 - 2.0 % 11/10/2024 3:[address] [facility] Abs Neutrophils 5.6 1.6 - 8.1 10(3)/uL 11/10/2024 3:[address] [facility] Abs Lymphocytes 2.7 0.9 - 3.5 10(3)/uL 11/10/2024 3:[address] [facility] Abs Monocytes 0.9 0.0 - 1.1 10(3)/uL 11/10/2024 3:[address] [facility] Abs Eosinophils 0.4 0.0 - 0.8 10(3)/uL 11/10/2024 3:[address] [facility] Abs Basophils 0.1 0.0 - 0.2 10(3)/uL 11/10/2024 3:[address] [facility] Blood VENOUS BLOOD / Unknown Venipuncture / Unknown 11/10/2024 2:56 PM CDT 11/10/2024 2:56 PM CDT us Cornelia Torres CABLE MOCK UP ASSEMBLER,LUMBER STACKER OPERATOR LAB HEMATOLOGY ORDERABLE S Final Result [facility] [address] [place] [address], [place] [phone] * (ABNORMAL) BASIC METABOLIC PANEL (11/10/2024 2:56 PM CDT) Only the most recent of3 resultswithin the time period is included. Sodium 145 136 - 146 mmol/L 11/10/2024 3:38 PM CDT [facility] Potassium 4.4 3.5 - 5.1 mmol/L 11/10/2024 3:38 PM CDT [facility] Chloride 109(H) 98 - 107 mmol/L 11/10/2024 3:38 PM CDT [facility] CO2 25 22 - 29 mmol/L 11/10/2024 3:38 PM CDT [facility] Creatinine 1.74(H) 0.72 - 1.25 mg/dL 11/10/2024 3:38 PM CDT [facility] Blood Urea Nitrogen 23.0(H) 10.0 - 20.0 mg/dL 11/10/2024 3:38 PM CDT [facility] Calcium, Total 9.2 8.4 - 10.2 mg/dL 11/10/2024 3:38 PM CDT [facility] Glucose 121(H) 70 - 100 mg/dL 11/10/2024 3:38 PM CDT [facility] eGFR 42(L) >=60 mL/min/1. 73m(2) 11/10/2024 3:38 PM CDT [facility] Comment:Calculation based on the Chronic Kidney Disease Epidemiology Collaboration (CKD-EPI) equation refit without adjustment for race. eCrCl (Rx) - Adults 48.4 mL/min 11/10/2024 3:[address] [facility] Blood VENOUS BLOOD / Unknown Venipuncture / Unknown 11/10/2024 2:56 PM CDT 11/10/2024 2:56 PM CDT us Cornelia Torres CABLE MOCK UP ASSEMBLER,LUMBER STACKER OPERATOR LAB CHEMISTRY ORDERABLES Final Result [facility] [address] [address], * CARDIAC RHYTHM STRIP (10/31/2024 7:18 AM CDT) Only the most recent of3 resultswithin the time period is included. 10/31/2024 7:18 AM CDT Narrative JESENIA - 10/31/2024 7:18 AM CDT AK 0.16 QRS 0.08 QT 0.40 Emiliano Esquivel MD,[facility] ECG Final Result JESENIA * ECHOCARDIOGRAM TRANSTHORACIC ADULT WITH OR WITHOUT CONTRAST (10/30/2024 9:44 AM CDT) Anatomical Region Laterality Modality Other 10/30/2024 9:44 AM CDT Narrative 10/30/2024 1:51 PM CDT Patient Info Name: Ankur Cardenas Age: 69 years : 1955 Gender: Male Ht: 70 in Wt: 230 lbs BSA: 2.30 m2 Systolic BP: 158 mmHg Diastolic BP: 88 mmHg Technical Quality: Diagnostic quality Exam Date/Time: 10/30/2024 9:44 AM Patient Status: Inpatient Admit Date: 10/29/2024 Exam Type: ECHOCARDIOGRAM TRANSTHORACIC ADULT WITH OR WITHOUT CONTRAST Procedure Details Any known Allergies: lisinopril, metformin Study Info Indications Acute coronary syndrome (ACS)/DC, assess LV function - Procedure Components Complete two-dimensional, color flow Doppler and spectral Doppler transthoracic echocardiogram is performed with contrast, documented in JUL. Heart Rate: 77 Heart Rhythm: Regular Band Tumbler: Kezia Jose [facility] Ordering Physician: Sal Rascon MD Summary: * The left ventricle is normal in size. * Left ventricular systolic function is mildly decreased. * The estimated ejection fraction is 40-45%. * Left ventricular segmental wall motion is abnormal, please see wall motion graphic. Akinesis of the distal anterior, anteroseptal, and apical wall segments. Severe hypokinesis of the mid anterior and inferoseptal wall segments. * There is mild concentric left ventricular hypertrophy. * The left ventricular diastolic function is abnormal (Grade I). * E/e' ratio is borderline elevated at 10.8. * Normal right ventricular systolic function. * There is aortic valve sclerosis. * There is borderline aortic stenosis with a peak velocity of 219 cm/s, mean gradient of 10.71 mmHg, aortic valve area of 1.07 cm2, and an NDSI of 0.36. * There is mild mitral regurgitation. * Mild mitral annular calcification. * The IVC is normal in size (< 2.1 cm), < 50% respiratory variance, RA pressure elevated at 8 mmHg. * Prior study from 03/12/2022. Left ventricular function has decreased and the wall motion abnormalities are new. Findings Left Ventricle The left ventricle is normal in size. There is mild concentric left ventricular hypertrophy. Left ventricular systolic function is mildly decreased. The estimated ejection fraction is 40-45%. Left ventricular segmental wall motion is abnormal, please see wall motion graphic. Akinesis of the distal anterior, anteroseptal, and apical wall segments. Severe hypokinesis of the mid anterior and inferoseptal wall segments. The left ventricular diastolic function is abnormal (Grade I). E/e' ratio is borderline elevated at 10.8. Right Ventricle The right ventricle is normal in size. Normal right ventricular systolic function. Left Atrium The left atrium is normal in size. Right Atrium The right atrium is normal in size. Atrial Septum There is no evidence of ASD/PFO by color Doppler. Aortic Valve The aortic valve is trileaflet. There is aortic valve sclerosis. There is mild aortic regurgitation. Aortic valve regurgitation pressure halftime is 502 ms. There is borderline aortic stenosis with a peak velocity of 219 cm/s, mean gradient of 10.71 mmHg, aortic valve area of 1.07 cm2, and an NDSI of 0.36. Pulmonary Valve The pulmonic valve is structurally normal. There is no Doppler evidence of pulmonic valve sclerosis or stenosis. There is trace pulmonic regurgitation. Mitral Valve The mitral valve leaflets are structurally normal. There is mild mitral regurgitation. Mild mitral annular calcification. There is no mitral stenosis. Tricuspid Valve The tricuspid valve leaflets are structurally normal. There is no tricuspid stenosis. There is trace tricuspid regurgitation. Doppler interrogation of the TV is inadequate to assess pulmonary artery systolic pressure. Pericardium / Pleural Effusion There is no pericardial effusion visualized. Inferior Vena Cava The IVC is normal in size (< 2.1 cm), < 50% respiratory variance, RA pressure elevated at 8 mmHg. Aorta The aortic root at the sinus of valsalva is normal in size measuring 3.25 cm with an index of 1.41 cm/m2. The proximal ascending aorta is normal in size measuring 3.70 cm with an index of 1.61 cm/m2. 2D Measurements Name Value Normal Parasternal 2D IVS Diastolic Thickness (2D) 1.60 cm 0.60-1.00 LVID Diastole (2D) 4.50 cm 4.20-5.80 LVIW Diastolic Thickness (2D) 1.20 cm 0.60-1.00 LVID Systole (2D) 2.30 cm 2.50-4.00 LVOT Diameter 1.87 cm LA Dimension (2D) 4.20 cm 3.00-4.10 Sinus of Valsalva Diameter 3.25 cm 3.10-3.70 Sinus of Valsalva Index 1.41 cm/m2 1.30-2.10 Prox Asc Ao Diameter 3.70 cm 2.60-3.40 LV Ejection Fraction 2D LV Diastolic Volume (BP MOD) 144.58 ml 62.00-150.00 LV Diastolic Volume Index (BP MOD) 62.77 ml/m2 34.00-74.00 LV Systolic Volume (BP MOD) 82.04 ml 21.00-61.00 LV EF (BP MOD) 45 % 52-72 Apical 2D Dimensions LA Volume Index (BP MOD) 18.97 ml/m2 16.00-34.00 M-mode Measurements Name Value Normal M-Mode TAPSE 2.07 cm >=1.70 LVOT/Aortic Valve Doppler Measurements Name Value Normal LVOT Doppler LVOT VTI 18.70 cm LVOT Peak Velocity 78.21 cm/s LVOT Peak Gradient 2.45 mmHg LVOT Mean Gradient 1.56 mmHg LVOT Stroke Volume 51 ml LVOT SI 22.36 ml/m2 AoV Doppler AV VTI 48.36 cm AV Peak Velocity 218.6 cm/s AV Peak Gradient 19.12 mmHg AV Mean Gradient 10.71 mmHg AV Area (Cont Eq Carlo) 0.99 cm2 >=3.00 AV Area (Cont Eq VTI) 1.07 cm2 >=3.00 AV Area Index (Cont Eq VTI) 0.46 cm2/m2 AV V1/V2 Ratio 0.36 AoV Regurgitation Doppler AR Decel Time 1,729 ms AR Decel Braxton 194.39 cm/s2 AR PHT 502 ms RVOT/Pulmonic Valve Doppler Measurements Name Value Normal PV Doppler PV Peak Velocity 89.40 cm/s PV Peak Gradient 3.00 mmHg Mitral Valve Measurements Name Value Normal MV Doppler MV E Peak Velocity 71.80 cm/s MV A Peak Velocity 93.60 cm/s MV E/A 0.77 MV Decel Time (Diast) 169 ms MV Annular TDI MV Septal e' Velocity 6.64 cm/s >=8.00 MV E/e' (Septal) 10.81 <=8.00 MV Lateral e' Velocity 6.64 cm/s >=10.00 MV E/e' (Lateral) 10.81 <=8.00 Tricuspid Valve Measurements Name Value Normal TV Regurgitation Doppler RA Pressure 8.00 mmHg <=5.00 Aorta / Venous Measurements Name Value Normal IVC/SVC IVC Diameter (Insp MM) 1.01 cm IVC Diameter (Exp MM) 1.59 cm <=2.10 IVC Diameter Percent Change (MM) 36 % >=50 Report Signatures Finalized by Sal Rascon MD on 10/30/2024 01:50 PM us Sal Rascon MD CAR ULTRASOUND Final Result * ECG (10/30/2024 7:02 AM CDT) Only the most recent of2 resultswithin the time period is included. 10/30/2024 7:02 AM CDT Narrative MUSE - 10/30/2024 2:49 PM CDT Test Reason : Pre/Post angio; Pre/Post PCI Blood Pressure : */* mmHG Vent. Rate : 77 BPM Atrial Rate : 77 BPM P-R Int : 180 ms QRS Dur : 98 ms QT Int : 408 ms P-R-T Axes : 55 137 68 degrees QTcB Int : 461 ms Normal sinus rhythm Anterolateral infarct (cited on or before 29-Oct-2024) Abnormal ECG When compared with ECG of 29-Oct-2024 21:43, No significant change was found Referred By: Electronically Signed By: SAL RASCON M.D. us Josue Guerra MD ECG Final R esult Performing Organization Address City/[facility]/ZIP Co de Phone Number MUSE * (ABNORMAL) ACTIVATED CLOTTING TIME, POC (10/29/2024 9:01 PM CDT) [facility] Activated Time 329(H) 74 - 125 Sec 10/29/2024 11:12 PM CDT [facility] Blood ARTERIAL BLOOD / Unknown 10/29/2024 9:01 PM CDT 10/29/2024 11:12 PM CDT us Sal Rascon MD LAB POINT OF CARE TE ST DOCKED DEVICE UNSOLICITED RESULTS Final Result [facility] [address] [place] [address], [place] [phone] * INVASIVE CARDIOLOGY PROCEDURE LOG (10/29/2024 8:41 PM CDT) Anatomical Region Laterality Modality Other 10/29/2024 8:41 PM CDT us Provider Unknown NURSING COMMUNICATION Final Res ult * CARDIAC CATHETERIZATION (10/29/2024 8:11 PM CDT) Anatomical Region Laterality Modality Other 10/29/2024 8:11 PM CDT Narrative 10/29/2024 9:30 PM CDT Patient Info Name: Ankur Cardenas Age: 69 yrs Any Known Allergies: lisinopril, metformin Study Type: CARDIAC CATHETERIZATION Admit Date: 10/29/2024 Exam Date: 10/29/2024 8:11 PM Patient Status: Inpatient Height: 178 cm Weight: 107 kg BSA: 2.34 m2 Gender: Male : 1955 Primary Physician: Josue Guerra MD Exam Priority: R Indication(s): L heart, poss PCI - Procedure Staff: Name: Josue Guerra MD Title: Role: Diagnostic Loom Mechanic Name: Ana Lilia Betancourt RN Title: RN Role: Nurse Name: Marge Arredondo RT Title: RT(R) Role: Professor Of Anthropology Name: Jamie MARINA Title: HAT IRONER Role: Scrub Name: Trisha Stubbs RT Title: RT(R) Role: Monitor Name: Josue Guerra MD Title: Role: Manager Solution Assisting Physician: No Assistant Media Buyer Type of Procedure Ultrasound guided radial access. Selective coronary angiography with left heart catheterization. PCI to the mid LAD. Access site hemostasis with radial band. Conclusions 1. Acutely occluded mid LAD status post PCI as below. Mild disease otherwise with patent circumflex stent. 2. Successful IVUS guided PCI to mid LAD with a 2.5 x 26mm Armando MARCIAL deployed at 16 bertha post dilated with 3mm NC balloon at 16 bertha. Final angiography demonstrated 0% residual stenosis with REINA 3 flow and no evidence of dissection or perforation. ACC type High Risk/C lesion with lesion length 24 mm. Recommendations 1. DAPT x 1 year. Diagnostic Summary * Left Main: mild non-obstructive disease. * LAD: Occluded in the midsegment. REINA 0 flow. Culprit lesion. * LCX: mild non-obstructive disease. patent stent. * RCA: Mild nonobstructive disease. dominant. Interventional Summary * Successful IVUS guided PCI to mid LAD with a 2.5 x 26mm Armando MARCIAL deployed at 16 bertha post dilated with 3mm NC balloon at 16 bertha. Final angiography demonstrated 0% residual stenosis with REINA 3 flow and no evidence of dissection or perforation. ACC type High Risk/C lesion with lesion length 24 mm. Clinical Evaluation Indications for Pathology Laboratory Aides Teacher Visit: ACS <= 24 hrs Specimen Collected: No EBL: <20ml. Procedural Details - Mac-Lab Phase: Baseline. The listed assisting physician provided the physician assistant primary care. assistance in all aspects of the procedure.. Lab Results Checked. Pre-Procedure Pulses Checked. Re-evaluated for Sedation by RN. Encore 26 Advantage Kit. Mechanologyway J Wire 260cm. DxTerity JR4.0 6fr. Runthrough NS wire 180cm. Physician Arrived. Timeout. Ultrasound Guided Vascular Access-Vessel Patent. 1% Lidocaine Administered to Right Radial Site. Cath Guid 6fr XB 3.5. Glidesheath Slender 6FR. Artery Accessed and Sheath Inserted. Radial Medications Administered by .. Nitroglycerin 200 mcg IA. Verapamil 500mcg IA. Catheter Inserted by Guidewire. Right Coronary System Injected \T\ Multi. Views Taken. Guide Catheter Inserted. Left Coronary System Injected \T\ Multi. Views Taken. Balloon Emerge 12mm x 2.50mm RX. Coronary Artery Visualized. Pre-REINA Flow 0, mLad 100%, type C. Interventional Guidewire Inserted. WIre Across Lesion. Balloon Inserted. Balloon inflated for 5 sec @ 12 bertha in the mLAD.. Balloon inflated for 5 sec @ 4 bertha in the mLAD.. Balloon inflated for 5 sec @ 10 bertha in the mLAD.. Balloon inflated for 5 sec @ 12 bertha in the mLAD.. Pre-REINA Flow 3. OptiCross 6FR IVUS Catheter. Permanent Sled Bag. IVUS.. Act: 329. IVUS.. Stent Phoenix Rogers 2.50 x 26. Stent Inserted. Stent deployed for 17 sec @ 16 bertha in the mLAD.. NTG 100mcg/cc IC 200 mcg. Balloon NC Emerge 3.00 x 12mm. Balloon Inserted. Balloon inflated for 6 sec @ 12 bertha in the mLAD.. Balloon inflated for 7 sec @ 12 bertha in the mLAD.. Nipride 100mcg/ml IC 200 mcg. IVUS.. TR Band Large. Total moderate sedation intra-service time (beginning with administration of sedating agent(s) and ending with completion of the procedure and patient being stable for recovery) was : 40 minutes. This time represents personal, continuous, [id number] time. An independent trained observer was present to assist in the monitoring of the patients level of consciousness and physiologic status. See Procedure Staff field for details. Estimated Blood Loss: <20ml.. Post Procedure Specimens Collected: No. Nausea/Vomiting: No. Reference Ranges: (Hgb= 11.2-15.8 g/dl, Potassium=3.5-5.1 mmol/L. Lactic Acid Level 0.5-1.7 mmol/L). Radial Sheath Pulled. Type of Compression (TR BAND). Hemostasis Obtained-Site Assessed. Sterile Dressing Applied to the Site. Post Procedure Pulses Unchanged from Preprocedure. Post Procedure Sedation Assessment Complete. Post Procedure Teaching Reviewed with Patient. Phase: Baseline. The listed assisting physician provided the physician assistant primary care. assistance in all aspects of the procedure.. Lab Results Checked. Pre-Procedure Pulses Checked. Re-evaluated for Sedation by RN. Encore 26 Advantage Kit. Lil Monkey Butt J Wire 260cm. DxTerity JR4.0 6fr. Runthrough NS wire 180cm. Physician Arrived. Timeout. Ultrasound Guided Vascular Access-Vessel Patent. 1% Lidocaine Administered to Right Radial Site. Cath Guid 6fr XB 3.5. Glidesheath Slender 6FR. Artery Accessed and Sheath Inserted. Radial Medications Administered by MD.. Nitroglycerin 200 mcg IA. Verapamil 500mcg IA. Catheter Inserted by Guidewire. Right Coronary System Injected \T\ Multi. Views Taken. Guide Catheter Inserted. Left Coronary System Injected \T\ Multi. Views Taken. Balloon Emerge 12mm x 2.50mm RX. Coronary Artery Visualized. Pre-REINA Flow 0, mLad 100%, type C. Interventional Guidewire Inserted. WIre Across Lesion. Balloon Inserted. Balloon inflated for 5 sec @ 12 bertha in the mLAD.. Balloon inflated for 5 sec @ 4 bertha in the mLAD.. Balloon inflated for 5 sec @ 10 bertha in the mLAD.. Balloon inflated for 5 sec @ 12 bertha in the mLAD.. Pre-REINA Flow 3. OptiCross 6FR IVUS Catheter. Permanent Sled Bag. IVUS.. Act: 329. IVUS.. Stent Phoenix Rogers 2.50 x 26. Stent Inserted. Stent deployed for 17 sec @ 16 bertha in the mLAD.. NTG 100mcg/cc IC 200 mcg. Balloon NC Emerge 3.00 x 12mm. Balloon Inserted. Balloon inflated for 6 sec @ 12 bertha in the mLAD.. Balloon inflated for 7 sec @ 12 bertha in the mLAD.. Nipride 100mcg/ml IC 200 mcg. IVUS.. TR Band Large. Total moderate sedation intra-service time (beginning with administration of sedating agent(s) and ending with completion of the procedure and patient being stable for recovery) was : 40 minutes. This time represents personal, continuous, [id number] time. An independent trained observer was present to assist in the monitoring of the patients level of consciousness and physiologic status. See Procedure Staff field for details. Estimated Blood Loss: <20ml.. Post Procedure Specimens Collected: No. Nausea/Vomiting: No. Reference Ranges: (Hgb= 11.2-15.8 g/dl, Potassium=3.5-5.1 mmol/L. Lactic Acid Level 0.5-1.7 mmol/L). Radial Sheath Pulled. Type of Compression (TR BAND). Hemostasis Obtained-Site Assessed. Sterile Dressing Applied to the Site. Post Procedure Pulses Unchanged from Preprocedure. Post Procedure Sedation Assessment Complete. Post Procedure Teaching Reviewed with Patient. Chest Pain Symptom Assessment: Typical Angina Cardiovascular Instability: No Ventricular Support: No Sedation Time: 40 min Complications: No complications occurred during the procedure and required no further treatment. Procedure Medications Start: 8:39 PM Medication: Versed Amount: 1 mg Route: IV Start: 8:39 PM Medication: Fentanyl Amount: 50 mcg Route: IV Start: 8:48 PM Medication: Heparin Bolus Amount: 9000 units Route: IV Start: 8:53 PM Medication: Versed Amount: 1 mg Route: IV Start: 8:59 PM Medication: Fentanyl Amount: 50 mcg Route: IV Start: 9:04 PM Medication: NTG 100mcg/cc Amount: 200 mcg Route: IC Start: 9:11 PM Medication: Nipride 100mcg/ml Amount: 200 mcg Route: IC All treatments and medications for the associated procedure given under direct order and supervision of a physician. Yes, all medications given per verbal order HA Frailty Scale: 6: Moderately Frail X-ray Summary Cumulative Air Kerma: 820.00 mGy Contrast Contrast: Omnipaque 350mg Amount: 70.0 ml Contrast: Contrast Waste Amount: 12.0 ml Report Signatures Finalized by Josue Guerra MD on 10/29/2024 09:30 PM Pressures Phase:Baseline AO : 125/82(82) @ 8:45:29 PM AO HR: 91 @ 8:45:29 PM Sal Rascon MD CARDIAC CATHETERIZATION Final Result * (ABNORMAL) GLYCOSYLATED HEMOGLOBIN, A1C (09/10/2024 8:19 AM CDT) Hemoglobin A1c 6.2(H) <5.7 % 09/10/2024 8:37 AM CDT [facility] Estimated Average Glucose 131 mg/dL 09/10/2024 8:37 AM CDT [facility] Blood VENOUS BLOOD / Unknown Venipuncture / Unknown 09/10/2024 8:19 AM CDT 09/10/2024 8:28 AM CDT Cornelia Torres APRN,LUMBER STACKER OPERATOR LAB CHEMISTRY ORDERABLES Final Result [place] [address] [address], [place] [phone] * (ABNORMAL) LIPID PANEL (09/10/2024 8:19 AM CDT) Cholesterol 158 <200 mg/dL 09/10/2024 10:[address] [facility] Triglycerides 265(H) 25 - 150 mg/dL 09/10/2024 10:21 AM CDT [facility] Cholesterol, LDL (Calculated) 75 0 - 159 mg/dL 09/10/2024 10:21 AM CDT [facility] Cholesterol, HDL 30(L) >40 mg/dL 09/11/19 25 10:[address] [facility] Cholesterol, vLDL 53 mg/dL 025 10:[address] [facility] Blood VENOUS BLOOD / Unknown Venipuncture / Unknown 09/10/2024 8:19 AM CDT 09/10/2024 9:55 AM CDT Cornelia Torres APRN,LUMBER STACKER OPERATOR LAB CHEMISTRY ORDERABLES Final Result [address] [place] [address], [place] [phone] * PROTEIN/CREATININE RATIO, URINE (07/23/2024 12:50 PM [employer] OPERATOR) Protein, Urine 10.9 <=40.0 mg/dL 07/23/2024 1:24 PM [employer] OPERATOR [facility] Comment:No reference range e stablished for urine test. Creatinine, Urine 84.1 mg/dL 07/23/2024 1:24 PM [employer]HALT [employer] OPERATOR [facility] Comment: No reference range established for urine test. No reference range established for urine test. Protein/Creatini ne Ratio, Urine 0.1 ratio 07/23/2024 1:24 PM [employer]HALT PL[employer] OPERATOR [facility] Comment:No reference range e stablished for urine test. Urine SPOT URINE SPECIMEN / Unknown Non-blood Collection / Unknown 07/23/2024 12:50 PM [employer] OPERATOR 07/23/2024 12:53 PM [employer] OPERATOR us Cecilia Crenshaw MD LAB URINE O RDERABLES Final Result [facility] [address] [place] [address], [place] [phone] * COLONOSCOPY (11/25/2017 7:39 AM CDT) 11/25/2017 7:39 AM CDT Narrative [facility] - 11/25/2017 8:37 AM CDT [facility] Patient Name: Ankur Cardenas Procedure Date: 11/25/2017 7:39 AM Date of : 1955 Admit Type: Outpatient Age: 62 Room: [facility] Gender: Male Note Status: Finalized Attending MD: Everett Torres MD Procedure: Colonoscopy Indications: Follow-up for history of adenomatous polyps in the colon Providers: Everett Torres MD Referring Provider: Armando Restrepo MD (Referring MD) Medicines: Midazolam 5 mg IV, Fentanyl 50 micrograms IV Complications: No immediate complications. Procedure: After I obtained informed consent, the scope was passed under direct vision. Throughout the procedure, the patient's blood pressure, pulse, and oxygen saturations were monitored continuously. The [id number] was introduced through the anus and advanced to the cecum, identified by appendiceal orifice and ileocecal valve. The quality of the bowel preparation was good. Findings: A 3 mm polyp was found in the cecum. The polyp was sessile. The polyp was removed with a cold biopsy forceps. Resection and retrieval were complete. Two sessile polyps were found in the ascending colon. The polyps were 3 to 4 mm in size. These polyps were removed with a cold biopsy forceps. Resection and retrieval were complete. A 3 mm polyp was found in the transverse colon. The polyp was sessile. The polyp was removed with a cold biopsy forceps. Resection and retrieval were complete. Two sessile polyps were found in the sigmoid colon. The polyps were 3 mm in size. These polyps were removed with a cold biopsy forceps. Resection and retrieval were complete. The exam was otherwise without abnormality. Moderate Sedation: Moderate (conscious) sedation was administered by the endoscopy nurse and supervised by the endoscopist. The following parameters were monitored: oxygen saturation, heart rate, blood pressure, respiratory rate, EKG, adequacy of pulmonary ventilation, and response to care. Total physician intraservice time was 26 minutes. Impression: - Multiple small colonic polyps s/p cold biopsy removal. - Otherwise normal EGD. Recommendation: - Await pathology results. - Repeat colonoscopy in 2-3 years for surveillance pending pathology review. - Return to primary care physician for followup medical care. Everett Torres MD 11/25/2017 8:37:03 AM This report has been signed electronically. All medications administered and tests ordered during the procedure were at the direction of the provider performing the procedure. Unless otherwise noted, estimated blood loss was minimal, no specimens were obtained, and all proceduralists have been documented. Number of Addenda: 0 Note Initiated On: 11/25/2017 7:39 AM us Armando Restrepo MD GI PROCEDURES Final Result Awareness Card [facility] from Last 3 Months or Most Recently Relevant to Health Maintenance Insurance MEDICARE A AND B MEDICARE A AND B NONE (Home) NONE (Work) [address] [id number] Advance Directives * Full Code (Latest Code Status on File) Date Activated Date Inactivated Comments 10/29/2024 8:44 PM 10/31/2024 4:42 PM * Full Code Date Activated Date Inactivated Comments 01/09/2021 12:45 PM 01/11/2021 1:35 PM Care Teams Baby Registry Sales Consultant Relationship Specialty Start Date End Date Cornelia Torres APRN,LUMBER STACKER OPERATOR [address] [place] [address] PCP - General Nurse Practitioner Family 11/14/21 Jadon Pelletier MD 06/23/17 Armando Restrepo MD [place] 06/23/17 Jadon Rossi MD [address] [place] [address] Internal Medicine Cardiovascular Disease 01/11/21 Patricia Babb APRN,TONY [address] [place] [address] Heart Failure Team Nurse Practitioner 03/13/21 Cecilia Crenshaw MD [address] [place] [address] Internal Medicine - Nephrology 07/23/24 Sal Rascon MD [address] [place] [address] Cardiology-Interventional 10/31/24 Additional Source Comments PLEASE NOTE: Replies to this message will not be received.[facility] and [facility]
--- OUTSIDE RECORDS SUMMARY | 2025-01-01 15:17 | XMS_ITS | Encounter Summary ---
Author Organization [employer] Address [address] [place] [address] Care Team Providers Care Hunter Skin Diver Name Role Phone Jadon Pelletier MD Unavailable Unavaila Armando Basurto MD Unavailable Jadon Rossi MD Unavailable [phone] Patricia Babb APRN,[facility] Unavailable + Cornelia Torres NEW ORDER CLERK,[facility] Primary Care Provider + Cecilia Crenshaw MD Unavailabl e Sal Rascon MD Unavailable [phone] Encounter Details Date Type Department Care Team (Late st Contact Info) Description 12/16/2024 Travel Subj: Question naire Submission Social History [...] doctor or pharmacy? Never 03/17/2024 [facility] Utilities Answer Date Recorded In the [...] How often do you attend chur or buddhism services? Never 03/17/2024 Do you belong to any clubs o r organizations such as taoist groups, unions, fraternal or athletic groups, or [...] care, and heating? Not very hard 03/17/2024 [facility] Occupat ional Health - Occupational Stress [...] on file Legal Sex Male 12:44 AM HEEL FORMER Gender Identity Not on file Sexual Orientation [...] Info) Description 01/04/2025 8:30 AM CDT Appointment [facility] [address] [facility], [place] [id number] Josue Guerra MD [address] [facility] [place] [address] Monitored, Cardiac Rehab Subj: Appointment Scheduled 01/04/2025 9:30 AM CDT Appointment [facility] [address] [facility], [place] [id number] Josue Guerra MD [address] [place] [address] Subj: Appointment Scheduled 01/06/2025 8:30 AM CDT Appointment [facility] [address] [facility], [place] [id number] Josue Guerra MD [address] [place] [address] Monitored, Cardiac Rehab Subj: Appointment Scheduled 01/06/2025 9:30 AM CDT Appointment [facility] [address] [place] [address] Josue Guerra MD [address] [place] [address] Subj: Appointment Scheduled 01/11/2025 8:30 AM CDT Appointment [facility] [address] [facility], [place] [id number] Josue Guerra MD [address] [place] [address] Monitored, Cardiac Rehab Subj: Appointment Scheduled 01/11/2025 9:30 AM CDT Appointment [facility] [address] [place] [address], [place] [address] Josue Guerra MD [address] [place] [address], [place] [address] Subj: Appointment Scheduled 01/13/2025 8:30 AM CDT Appointment [facility] [address] [place] [address], [place] [address] [place] [address] [place] [address], [place] [address] Monitored, Cardiac Rehab Subj: Appointment Scheduled 01/13/2025 9:30 AM CDT Appointment [facility] [address] [place] [address], [place] [address] [place] [address] [place] [address], [place] [address] Subj: Appointment Scheduled 01/18/2025 8:30 AM CDT Appointment [facility] [address] [place] [address], [place] [address] [place] [address] [place] [address], [place] [address] Monitored, Cardiac Rehab Subj: Appointment Scheduled 01/18/2025 9:30 AM CDT Appointment [facility] [address] [place] [address] Josue Guerra MD [address] [place] [address] Subj: Appointment Scheduled 01/20/2025 8:30 AM CDT Appointment [facility] [address] [place] [address], [place] [address] Josue Guerra MD [address] [place] [address] Monitored, Cardiac Rehab Subj: Appointment Scheduled 01/20/2025 9:30 AM CDT Appointment [facility] [address] [place] [address], [place] [address] Josue Guerra MD [address] [place] [address] Subj: Appointment Scheduled 01/25/2025 8:30 AM CDT Appointment [facility] [address] [place] [address], [place] [address] Josue Guerra MD [address] [place] [address] Monitored, Cardiac Rehab Subj: Appointment Scheduled 01/25/2025 9:30 AM CDT Appointment [facility] [address] [place] [address], [place] [address] Josue Guerra MD [address] [place] [address] Subj: Appointment Scheduled 01/27/2025 8:30 AM CDT Appointment [facility] [address] [facility] [place] [address] Josue Guerra MD [address] [place] [address] Monitored, Cardiac Rehab Subj: Appointment Scheduled 01/27/2025 9:30 AM CDT Appointment [facility] [address] [place] [address], [place] [address] Josue Guerra MD [address] [place] [address] Subj: Appointment Scheduled 02/01/2025 8:30 AM CDT Appointment [facility] [address] [place] [address], [place] [address] Josue Guerra MD [address] [place] [address] Monitored, Cardiac Rehab Subj: Appointment Scheduled 02/01/2025 9:30 AM CDT Appointment [facility] [address] [place] [address], [place] [address] Josue Guerra MD [address] [place] [address] Subj: Appointment Scheduled 02/03/2025 8:30 AM CDT Appointment [facility] [address] [place] [address], [place] [address] Josue Guerra MD [address] [place] [address] Monitored, Cardiac Rehab Subj: Appointment Scheduled 02/03/2025 9:30 AM CDT Appointment [facility] [address] [place] [address], [place] [address] Josue Guerra MD [address] [place] [address] Subj: Appointment Scheduled 02/08/2025 8:30 AM CDT Appointment [facility] [address] [place] [address], [place] [address] Josue Guerra MD [address] [place] [address] Monitored, Cardiac Rehab Subj: Appointment Scheduled 02/08/2025 9:30 AM CDT Appointment [facility] [address] [place] [address], [place] [address] Josue Guerra MD [address] [place] [address] Subj: Appointment Scheduled 02/10/2025 8:30 AM CDT Appointment [facility] [address] [place] [address], [place] [address] Josue Guerra MD [address] [place] [address] Monitored, Cardiac Rehab Subj: Appointment Scheduled 02/10/2025 9:30 AM CDT Appointment [facility] [address] [place] [address] Josue Guerra MD [address] [place] [address] Subj: Appointment Scheduled 02/15/2025 8:30 AM CDT Appointment [facility] [address] [place] [address], [place] [address] Josue Guerra MD [address] [place] [address] Monitored, Cardiac Rehab Subj: Appointment Scheduled 02/15/2025 9:30 AM CDT Appointment [facility] [address] [place] [address], [place] [address] Josue Guerra MD [address] [place] [address] Subj: Appointment Scheduled 02/17/2025 8:30 AM CDT Appointment [facility] [address] [place] [address], [place] [address] Josue Guerra MD [address] [place] [address] Monitored, Cardiac Rehab Subj: Appointment Scheduled 02/17/2025 9:30 AM CDT Appointment [facility] [address] [place] [address], [place] [address] Josue Guerra MD [address] [place] [address] Subj: Appointment Scheduled 02/22/2025 8:30 AM CDT Appointment [facility] [address] [facility] [place] [address] Josue Guerra MD [address] [place] [address] Monitored, Cardiac Rehab Subj: Appointment Scheduled 02/22/2025 9:30 AM CDT Appointment [facility] [address] [place] [address] Josue Guerra MD [address] [place] [address] Subj: Appointment Scheduled 02/24/2025 8:30 AM CDT Appointment [facility] [address] [place] [address] Josue Guerra MD [address] [place] [address] Monitored, Cardiac Rehab Subj: Appointment Scheduled 02/24/2025 9:30 AM CDT Appointment [facility] [address] [place] [address] Josue Guerra MD [address] [place] [address] Subj: Appointment Scheduled 03/01/2025 8:30 AM CDT Appointment [facility] [address] [place] [address] Josue Guerra MD [address] [place] [address] Monitored, Cardiac Rehab Subj: Appointment Scheduled 03/01/2025 9:30 AM CDT Appointment [facility] [address] [place] [address] [place] [address] [place] [address], [place] [address] Subj: Appointment Scheduled 03/03/2025 8:30 AM CDT Appointment [facility] [address] [place] [address], [place] [address] [place] [address] [place] [address], [place] [address] Monitored, Cardiac Rehab Subj: Appointment Scheduled 03/03/2025 9:30 AM CDT Appointment [facility] [address] [place] [address], [place] [address] Josue Guerra MD [address] [place] [address] Subj: Appointment Scheduled 03/08/2025 8:30 AM CDT Appointment [facility] [address] [place] [address], [place] [address] Josue Guerra MD [address] [place] [address] Monitored, Cardiac Rehab Subj: Appointment Scheduled 03/08/2025 9:30 AM CDT Appointment [facility] [address] [place] [address], [place] [address] Josue Guerra MD [address] [place] [address] Subj: Appointment Scheduled 03/10/2025 8:30 AM CDT Appointment [facility] Card[facility] [address] [place] [address], [place] [address] Josue Guerra MD [address] [place] [address] Monitored, Cardiac Rehab Subj: Appointment Scheduled 03/10/2025 9:30 AM CDT Appointment [facility] [address] [place] [address], [place] [address] [place] [address] [place] [address] Subj: Appointment Scheduled 03/15/2025 8:30 AM CDT Appointment [facility] [address] [place] [address], [place] [address] [place] [address] [place] [address], [place] [address] Monitored, Cardiac Rehab Subj: Appointment Scheduled 03/15/2025 9:30 AM CDT Appointment [facility] [address] [place] [address], [place] [id number] [place] [address] [place] [address] Subj: Appointment Scheduled documented as of this encounter Visit Diagnoses Not on filedocumented in this encounter Care Teams Hunter Skin Diver Relationship Specialty Start Date End Date Cornelia Torres, NEW ORDER CLERK,TRAFFIC OR SYSTEM DISPATCHER [address] [place] [address] PCP - General Nurse Practitioner Family 11/14/21 Jadon Pelletier MD 06/23/17 Armando Restrepo MD [place] 06/23/17 Jadon Rossi MD [address] [place] [address] Internal Medicine Cardiovascular Disease 01/11/21 Patricia Babb, ADRIAN,TRAFFIC OR SYSTEM DISPATCHER [address] [place] [address] Heart Failure Team Nurse Practitioner 03/13/21 Cecilia Crenshaw MD [address] [place] [address] Internal Medicine - Nephrology 07/23/24 Sal Rascon MD [address] [place] [address] Cardiology-Interventional 10/31/24 documented as of this encounter Additional Source Comments PLEASE NOTE: Replies to this message will not be received.[facility]
--- OUTSIDE RECORDS SUMMARY | 2025-01-01 15:17 | XMS_ITS | Encounter Summary ---
Author Organization [employer] Address [address] [place] [id number] Care Team Providers Care Electronic Imager Name Role Phone Jadon Pelletier MD Unavailable Unavaila Armando Basurto MD Unavailable Jadon Rossi MD Unavailable Patricia Babb APRN,[facility] Unavailable + Cornelia Torres RAILROAD SHOP INSPECTOR,[facility] Primary Care Provider + Cecilia Crenshaw MD Unavailabl e Sal Rascon MD Unavailable [phone] Encounter Details Date Type Department Care Team (Latest Contact Info) Description 12/20/2024 Travel Social History Tobacco Use Types Packs/Day [...] from your doctor or pharmacy? Never 03/17/2024 [facility] Utilities Answer Date Recorded In [...] 03/17/2024 How often do you attend [facility]ur [employer] or jain services? Never 03/17/2024 Do you belong to any clubs o r organizations such as restoration groups, unions, fraternal or athletic groups, or [...] care, and heating? Not very hard 03/17/2024 [facility] Corder of Occupat ional Health - Occupational Stress [...] any time in the past 12 m [facility], were you homeless or living in a alf (including now)? No 10/29/2024 Housing Stability Answer [...] any time in the past 12 m [facility], were you homeless or living in a alf (including now)? No 10/29/2024 In the past [...] on file Legal Sex Male 12:[address] Gender Identity Not on file Sexual Orientation [...] Description 01/04/2025 8:[address] [facility] [address] [place] [address] Josue Guerra MD [address] [address] Monitored, Cardiac Rehab Subj: Appointment Scheduled 01/04/2025 9:[address] [facility] [address] [facility] [address] Josue Guerra MD [address] [facility] [place] [place] [address] Subj: Appointment Scheduled 01/06/2025 8:[address] [facility] [address] [facility] [place] [id number] Josue Guerra MD [address] [place] [address] Monitored, Cardiac Rehab Subj: Appointment Scheduled 01/06/2025 9:[address] [facility] [address] [facility] [place] [address] Josue Guerra MD [address] [facility] [place] [place] [address] Subj: Appointment Scheduled 01/11/2025 8:[address] [facility] [address] [facility] [place] [address] Josue Guerra MD [address] [place] [address] Monitored, Cardiac Rehab Subj: Appointment Scheduled 01/11/2025 9:[address] [facility] [address] [place] [address], [place] [address] Josue Guerra MD [address] [place] [address] Subj: Appointment Scheduled 01/13/2025 8:[address] [facility] [address] [place] [address], [place] [address] [place] [address] [place] [address], [place] [address] Monitored, Cardiac Rehab Subj: Appointment Scheduled 01/13/2025 9:[address] [facility] [address] [place] [address], [place] [address] Josue Guerra MD [address] [place] [address] Subj: Appointment Scheduled 01/18/2025 8:[address] [facility] [address] [place] [address], [place] [address] Josue Guerra MD [address] [place] [address] Monitored, Cardiac Rehab Subj: Appointment Scheduled 01/18/2025 9:[address] [facility] [address] [place] [place] [address] Josue Guerra MD [address] [place] [address] Subj: Appointment Scheduled 01/20/2025 8:[address] [facility] [address] [place] [address], [place] [address] [place] [address] [place] [address], [place] [address] Monitored, Cardiac Rehab Subj: Appointment Scheduled 01/20/2025 9:[address] [facility] [address] [place] [address], [place] [address] [place] [address] [place] [address], [place] [address] Subj: Appointment Scheduled 01/25/2025 8:[address] [facility] [address] [place] [address], [place] [address] Josue Guerra MD [address] [place] [address] Monitored, Cardiac Rehab Subj: Appointment Scheduled 01/25/2025 9:[address] [facility] [address] [place] [address], [place] [address] Josue Guerra MD [address] [place] [address] Subj: Appointment Scheduled 01/27/2025 8:[address] [facility] [address] [facility] [place] [address] Josue Guerra MD [address] [place] [address] Monitored, Cardiac Rehab Subj: Appointment Scheduled 01/27/2025 9:[address] [facility] [address] [place] [address] Josue Guerra MD [address] [place] [address] Subj: Appointment Scheduled 02/01/2025 8:[address] [facility] [address] [place] [address], [place] [address] Josue Guerra MD [address] [place] [address] Monitored, Cardiac Rehab Subj: Appointment Scheduled 02/01/2025 9:[address] [facility] [address] [place] [address] Josue Guerra MD [address] [place] [address] Subj: Appointment Scheduled 02/03/2025 8:[address] [facility] [address] [place] [address], [place] [address] Josue Guerra MD [address] [place] [address] Monitored, Cardiac Rehab Subj: Appointment Scheduled 02/03/2025 9:[address] [facility] [address] [place] [address] Josue Guerra MD [address] [place] [address] Subj: Appointment Scheduled 02/08/2025 8:[address] [facility] [address] [place] [address], [place] [address] [place] [address] [place] [address], [place] [address] Monitored, Cardiac Rehab Subj: Appointment Scheduled 02/08/2025 9:[address] [facility] [address] [place] [address], [place] [address] Josue Guerra MD [address] [place] [address] Subj: Appointment Scheduled 02/10/2025 8:[address] [facility] [address] [place] [address], [place] [address] Josue Guerra MD [address] [place] [address] Monitored, Cardiac Rehab Subj: Appointment Scheduled 02/10/2025 9:[address] [facility] [address] [place] [address], [place] [address] Josue Guerra MD [address] [place] [address] Subj: Appointment Scheduled 02/15/2025 8:[address] [facility] [address] [facility] [place] [address] Josue Guerra MD [address] [place] [address] Monitored, Cardiac Rehab Subj: Appointment Scheduled 02/15/2025 9:[address] [facility] [address] [place] [address], [place] [address] Josue Guerra MD [address] [place] [address] Subj: Appointment Scheduled 02/17/2025 8:[address] [facility] [address] [place] [address], [place] [address] Josue Guerra MD [address] [place] [address] Monitored, Cardiac Rehab Subj: Appointment Scheduled 02/17/2025 9:[address] [facility] [address] [place] [address], [place] [address] Josue Guerra MD [address] [place] [address] Subj: Appointment Scheduled 02/22/2025 8:[address] [facility] [address] [facility] [place] [address] Josue Guerra MD [address] [place] [address] Monitored, Cardiac Rehab Subj: Appointment Scheduled 02/22/2025 9:[address] [facility] [address] [place] [address], [place] [address] Josue Guerra MD [address] [place] [address] Subj: Appointment Scheduled 02/24/2025 8:[address] [facility] [address] [place] [address], [place] [address] [place] [address] [place] [address], [place] [address] Monitored, Cardiac Rehab Subj: Appointment Scheduled 02/24/2025 9:[address] [facility] [address] [place] [address], [place] [address] Josue Guerra MD [address] [place] [address] Subj: Appointment Scheduled 03/01/2025 8:[address] [facility] [address] [place] [address], [place] [address] Josue Guerra MD [address] [place] [address] Monitored, Cardiac Rehab Subj: Appointment Scheduled 03/01/2025 9:[address] [facility] [address] [facility] [place] [address] Josue Guerra MD [address] [place] [address] Subj: Appointment Scheduled 03/03/2025 8:[address] [facility] [address] [facility] [address] Josue Guerra MD [address] [place] [address] Monitored, Cardiac Rehab Subj: Appointment Scheduled 03/03/2025 9:[address] [facility] [address] [place] [address] Josue Guerra MD [address] [place] [address] Subj: Appointment Scheduled 03/08/2025 8:[address] [facility] [address] [place] [address] Josue Gurera MD [address] [place] [address] Monitored, Cardiac Rehab Subj: Appointment Scheduled 03/08/2025 9:[address] [facility] [address] [place] [address] Josue Guerra MD [address] [place] [address] Subj: Appointment Scheduled 03/10/2025 8:[address] [facility] [address] [place] [address] Josue Guerra MD [address] [place] [address] Monitored, Cardiac Rehab Subj: Appointment Scheduled 03/10/2025 9:[address] [facility] [address] [place] [address], [place] [address] [place] [address] [place] [address], [place] [address] Subj: Appointment Scheduled 03/15/2025 8:[address] [facility] [address] [place] [address], [place] [address] [place] [address] [place] [address], [place] [address] Monitored, Cardiac Rehab Subj: Appointment Scheduled 03/15/2025 9:[address] [facility] [address] [place] [address], [place] [address] [place] [address] [place] [address], [place] [address] Subj: Appointment Scheduled documented as of this encounter Visit Diagnoses Not on filedocumented in this encounter Care Teams Electronic Imager Relationship Specialty Start Date End Date Cornelia Torres APRN,PHYSICAL THERAPY SUPERVISOR [address] [place] [phone] PCP - General Nurse Practitioner Family 11/14/21 Jadon Pelletier MD 06/23/17 Armando Restrepo MD [place] 06/23/17 Jadon Rossi MD [address] [place] [address] Internal Medicine Cardiovascular Disease 01/11/21 Patricia Babb APRN,PHYSICAL THERAPY SUPERVISOR [address] [place] [place] [address] Heart Failure Team Nurse Practitioner 03/13/21 Cecilia Crenshaw MD [address] [place] [place] [address] Internal Medicine - Nephrology 07/23/24 Sal Rascon MD [address] [place] [place] [address] Cardiology-Interventional 10/31/24 documented as of this encounter Additional Source Comments PLEASE NOTE: Replies to this message will not be received.[facility]
--- OUTSIDE RECORDS SUMMARY | 2025-01-01 15:17 | XMS_ITS | Clinical Summary ---
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 Active aspirin (CHILDREN'S ASPIRIN) 81 mg oral Tablet, ChewableIndicat ions:NSTEMI (non-ST elevated myocardial infarction) ([facility]) Chew and Swallow 1 [...] mg) by mouth at bedtime. 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 09/24/2022 Pain [...] disease) 04/11/2014 03/24/2024 Alcohol abuse 04/11/2014 03/24/2024 Encounters Date Type Department Care Team Description 12/23/2024 8:16 AM CDT - 12/23/2024 11:59 PM CDT Hospital Encounter [facility] [address] [place] [address] Josue Guerra MD Monitored, Cardiac Rehab Subj: Appointment Scheduled Discharge Disposition: Discharge Home 12/21/2024 8:11 AM CDT - 12/21/2024 11:59 PM CDT Hospital Encounter [facility] [address] [place] [address] Josue Guerra MD Monitored, Cardiac Rehab Subj: Questionnaire Submission Discharge Disposition: Discharge Home 12/20/2024 Travel 12/16/2024 Travel Subj: Question naire Submission 12/14/2024 8:15 AM CDT - 12/14/2024 11:59 PM CDT Hospital Encounter [facility] [address] [place] [address] Josue Guerra MD Monitored, Cardiac Rehab Subj: Appointment Scheduled Discharge Disposition: Discharge Home 12/13/2024 Travel 12/09/2024 1:00 PM CDT Office Visit [facility] [address] [place] [address] Susanne Thomson, PAC Dx: Coronary artery disease involving inupiat coronary artery of inupiat heart without angina pectoris (Primary Dx) 12/09/2024 8:16 AM CDT - 12/09/2024 11:59 PM CDT Hospital Encounter [facility] [address] [place] [address] Josue Guerra MD Monitored, Cardiac Rehab Subj: Appointment Scheduled Discharge Disposition: Discharge Home 12/07/2024 8:09 AM CDT - 12/07/2024 11:59 PM CDT Hospital Encounter [facility] [address] [place] [address] Josue Guerra MD Monitored, Cardiac Rehab Subj: Appointment Scheduled Discharge Disposition: Discharge Home 12/05/2024 Travel 12/02/2024 8:11 AM CDT - 12/02/2024 11:59 PM CDT Hospital Encounter [facility] [address] [place] [address] Josue Guerra MD Monitored, Cardiac Rehab Subj: Questionnaire Submission Discharge Disposition: Discharge Home 11/30/2024 8:15 AM CDT - 11/30/2024 11:59 PM CDT Hospital Encounter [facility] [address] [place] [address] Josue Guerra MD Monitored, Cardiac Rehab Subj: Questionnaire Submission Discharge Disposition: Discharge Home 11/30/2024 Travel Subj: Question naire Submission 11/25/2024 8:14 AM CDT - 11/25/2024 11:59 PM CDT Hospital Encounter [facility] [address] [place] [address] Josue Guerra MD Monitored, Cardiac Rehab Subj: Appointment Scheduled Discharge Disposition: Discharge Home 11/24/[address] [phone] Sowmya Joe [facility] Chief Comp: Medication Questions 11/23/2024 7:40 AM CDT - 11/23/2024 11:59 PM CDT Hospital Encounter [facility] [address] [place] [address] Josue Guerra MD Monitored, Cardiac Rehab Subj: Questionnaire Submission Discharge Disposition: Discharge Home 11/23/2024 Travel 11/18/2024 6:45 AM CDT - 11/18/2024 11:59 PM CDT Hospital Encounter [facility] [address] [place] [address] Josue Guerra MD Monitored, Cardiac Rehab Subj: Appointment Scheduled Discharge Disposition: Discharge Home 11/18/2024 Results Follow-Up [address] [address] Cornelia Torres APRN,NREMT BASIC METABOLIC PANEL, COMPLETE BLOOD COUNT AND DIFFERENTIAL 11/16/2024 8:08 AM CDT - 11/16/2024 11:59 PM CDT Hospital Encounter [facility] [address] [place] [address] Josue Guerra MD Monitored, Cardiac Rehab Subj: Appointment Scheduled Discharge Disposition: Discharge Home 11/16/[address] [address] Jailyn Goldman RN Dx: ST elevation myocardial infarction involving left anterior descending (LAD) coronary artery (HCC) (Primary Dx) 11/16/[address] [address] Sowmya Joe CMA Chief Comp: Medication Questions 11/10/2024 2:30 PM CDT Office Visit [address] [address] Cornelia Torres APRN,NREMT Dx: NSTEMI (non-ST elevated myocardial infarction) (HCC) (Primary Dx) 11/10/2024 9:37 AM CDT - 11/10/2024 11:59 PM CDT Hospital Encounter [facility] [address] [place] [address] Josue Guerra MD Dx: ST elevation myocardial infarction involving left anterior descending (LAD) coronary artery (HCC) (Primary Dx) Discharge Disposition: Discharge Home 11/10/2024 Future Orders [facility] [address] [place] [address] Darren Rodriguez PsyD,LP Dx: Stress (Primary Dx) 11/03/2024 Telephone [facility] [address] [place] [address] Lourdes Montoya RN Dx: ST elevation myocardial infarction involving left anterior descending (LAD) coronary artery (HCC) (Primary Dx) 11/01/2024 Telephone [place] [address] [place] [address] Sowmya Joe CMA Chief Comp: TCM (Transition of Care Management) 11/01/2024 Patient Message [facility] [address] [place] [address] Subj: Heart Healthy Diet Recommendations 11/01/2024 Results Follow-Up [facility] [address] [place] [address] Georgina Osman RN ECG, ECG 10/29/2024 8:30 PM CDT - 10/31/2024 1:37 PM CDT Hospital Encounter [facility] Telemetry [address] [place] [address] Sal Rascon MD Marek, Paul L, MD[facility] Dx: ST elevation myocardial infarction involving left anterior descending (LAD) coronary artery (HCC) (Primary Dx) Discharge Disposition: Discharge Home 10/29/2024 Travel from Last 3 Months Immunizations Immunization Administration Dates Next Due Hepatitis A Vaccine, IM, Adult (> 19 yrs) 2011,12/04/2009 Influenza Vac, IM, Quadrival ent Preserv Free, (>6 months) 05/10/2020,05/24/2019 Influenza Vac, IM, Trivalent (>3 Yrs) 04/16/2002 ,04/06/2001,06/09/2000 Tdap Vaccine, IM, (Adacel)(Boostrix) 08/06/2011 Varicella Vaccine, IM (Shingrix) 11/17/2017,10/25,09/06/2017 Family History Medical History Relation Name Comments Alcohol Abuse Brother 1 Heart Disease Brother 3 Drug abuse Brother 4 Quan Mckenna Asthma Child Heart Disease Father 1 Arteriosclerot ic Cardiovascular disease age 81 Hypertension Father 1 Allergic Rhinitis Mother 1 Other Mother 1 alzheimers age 82 Relation Name Status Comments Brother 1 Brother 2 Quan Brother 3 Brother 4 Quan Mckenna Child Father 1 Father 2 Quan Liu Mother 1 Mother 2 Gertrud Social History Tobacco Use Types Packs/Day Years [...] from your doctor or pharmacy? Never 03/17/2024 [facility] Utilities Answer Date Recorded In the past 12 months has [facility], [facility], oil, or water [employer] threatened to shut off services in [...] week 03/17/2024 How often do you attend [facility] or [facility]? Never 03/17/2024 Do you belong to [...] care, and heating? Not very hard 03/17/2024 [facility] Occup[facility] ional [facility] - Occupational Stress [...] any time in the past 12 m onths, were you homeless or living in a long term (including now)? No 10/29/2024 Housing Stability Answer [...] any time in the past 12 m ont, were you homeless or living in a long term (including now)? 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 Gender Identity Not on file Sexual Orientation [...] Mass Index 31.85 12/09/2024 12:57 PM CDT Plan of Treatment Upcoming Encounters Date Type Department Care Team (Late st Contact Info) Description 01/04/2025 8:30 AM CDT Appointment [facility] [address] [place] [address] Josue Guerra MD [address] [place] [phone] Monitored, Cardiac Rehab Subj: Appointment Scheduled 01/04/2025 9:30 AM CDT Appointment [facility] [address] [place] [phone] Josue Guerra MD [address] [place] [phone] Subj: Appointment Scheduled 01/06/2025 8:30 AM CDT Appointment [facility] [address] [place] [address] Josue Guerra MD [address] [place] [phone] Monitored, Cardiac Rehab Subj: Appointment Scheduled 01/06/2025 9:30 AM CDT Appointment [facility] [address] [place] [address] Josue Guerra MD [address] [place] [address] Subj: Appointment Scheduled 01/11/2025 8:30 AM CDT Appointment [facility] [address] [place] [address], [place] [address] Josue Guerra MD [address] [place] [address] Monitored, Cardiac Rehab Subj: Appointment Scheduled 01/11/2025 9:30 AM CDT Appointment [facility] [address] [place] [address], [place] [address] Josue Guerra MD [address] [place] [address] Subj: Appointment Scheduled 01/13/2025 8:30 AM CDT Appointment [facility] [address] [place] [address], [place] [address] Josue Guerra MD [address] [place] [address] Monitored, Cardiac Rehab Subj: Appointment Scheduled 01/13/2025 9:30 AM CDT Appointment [facility] [address] [place] [address], [place] [address] Josue Guerra MD [address] [place] [address] Subj: Appointment Scheduled 01/18/2025 8:30 AM CDT Appointment [facility] [address] [facility] [place] [address] Josue Guerra MD [address] [place] [address] Monitored, Cardiac Rehab Subj: Appointment Scheduled 01/18/2025 9:30 AM CDT Appointment [facility] [address] [place] [address], [place] [address] [place] [address] [place] [address], [place] [address] Subj: Appointment Scheduled 01/20/2025 8:30 AM CDT Appointment [facility] [address] [place] [address], [place] [address] Josue Guerra MD [address] [place] [address] Monitored, Cardiac Rehab Subj: Appointment Scheduled 01/20/2025 9:30 AM CDT Appointment [facility] [address] [place] [address], [place] [address] Josue Guerra MD [address] [place] [address] Subj: Appointment Scheduled 01/25/2025 8:30 AM CDT Appointment [facility] [address] [place] [address], [place] [address] Josue Guerra MD [address] [place] [address] Monitored, Cardiac Rehab Subj: Appointment Scheduled 01/25/2025 9:30 AM CDT Appointment [facility] [address] [place] [address], [place] [address] Josue Guerra MD [address] [place] [address] Subj: Appointment Scheduled 01/27/2025 8:30 AM CDT Appointment [facility] [address] [place] [address], [place] [address] Josue Guerra MD [address] [place] [address] Monitored, Cardiac Rehab Subj: Appointment Scheduled 01/27/2025 9:30 AM CDT Appointment [facility] [address] [place] [address], [place] [address] Josue Guerra MD [address] [place] [address] Subj: Appointment Scheduled 02/01/2025 8:30 AM CDT Appointment [facility] [address] [place] [address], [place] [address] Josue Guerra MD [address] [place] [address] Monitored, Cardiac Rehab Subj: Appointment Scheduled 02/01/2025 9:30 AM CDT Appointment [facility] [address] [place] [address] Josue Guerra MD [address] [place] [address] Subj: Appointment Scheduled 02/03/2025 8:30 AM CDT Appointment [facility] [address] [place] [address], [place] [address] Josue Guerra MD [address] [place] [address] Monitored, Cardiac Rehab Subj: Appointment Scheduled 02/03/2025 9:30 AM CDT Appointment [facility] [address] [place] [address], [place] [address] Josue Guerra MD [address] [place] [address] Subj: Appointment Scheduled 02/08/2025 8:30 AM CDT Appointment [facility] [address] [place] [address], [place] [address] Josue Guerra MD [address] [place] [address] Monitored, Cardiac Rehab Subj: Appointment Scheduled 02/08/2025 9:30 AM CDT Appointment [facility] [address] [place] [address], [place] [address] Josue Guerra MD [address] [place] [address] Subj: Appointment Scheduled 02/10/2025 8:30 AM CDT Appointment [facility] [address] [place] [address] Josue Guerra MD [address] [place] [address] Monitored, Cardiac Rehab Subj: Appointment Scheduled 02/10/2025 9:30 AM CDT Appointment [facility] [address] [place] [address], [place] [address] Josue Guerra MD [address] [place] [address] Subj: Appointment Scheduled 02/15/2025 8:30 AM CDT Appointment [facility] [address] [place] [address], [place] [address] Josue Guerra MD [address] [place] [address] Monitored, Cardiac Rehab Subj: Appointment Scheduled 02/15/2025 9:30 AM CDT Appointment [facility] [address] [place] [address] Josue Guerra MD [address] [place] [address] Subj: Appointment Scheduled 02/17/2025 8:30 AM CDT Appointment [facility] [address] [place] [address], [place] [address] Josue Guerra MD [address] [place] [address] Monitored, Cardiac Rehab Subj: Appointment Scheduled 02/17/2025 9:30 AM CDT Appointment [facility] [address] [place] [address], [place] [address] [place] [address] [place] [address], [place] [address] Subj: Appointment Scheduled 02/22/2025 8:30 AM CDT Appointment [facility] [address] [place] [address], [place] [address] Josue Guerra MD [address] [place] [address], [place] [address] Monitored, Cardiac Rehab Subj: Appointment Scheduled 02/22/2025 9:30 AM CDT Appointment [facility] [address] [place] [address], [place] [address] [place] [address] [place] [address], [place] [address] Subj: Appointment Scheduled 02/24/2025 8:30 AM CDT Appointment [facility] [address] [place] [address], [place] [address] Josue Guerra MD [address] [place] [address] Monitored, Cardiac Rehab Subj: Appointment Scheduled 02/24/2025 9:30 AM CDT Appointment [facility] [address] [place] [address], [place] [address] Josue Guerra MD [address] [place] [address] Subj: Appointment Scheduled 03/01/2025 8:30 AM CDT Appointment [facility] [address] [place] [address], [place] [address] Josue Guerra MD [address] [place] [address] Monitored, Cardiac Rehab Subj: Appointment Scheduled 03/01/2025 9:30 AM CDT Appointment [facility] [address] [place] [address], [place] [address] Josue Guerra MD [address] [place] [address] Subj: Appointment Scheduled 03/03/2025 8:30 AM CDT Appointment [facility] [address] [place] [address], [place] [address] Josue Guerra MD [address] [place] [address] Monitored, Cardiac Rehab Subj: Appointment Scheduled 03/03/2025 9:30 AM CDT Appointment [facility] [address] [place] [address], [place] [address] Josue Guerra MD [address] [place] [address] Subj: Appointment Scheduled 03/08/2025 8:30 AM CDT Appointment [facility] [address] [place] [address] Josue Guerra MD [address] [place] [address] Monitored, Cardiac Rehab Subj: Appointment Scheduled 03/08/2025 9:30 AM CDT Appointment [facility] [address] [place] [address], [place] [address] Josue Guerra MD [address] [place] [address] Subj: Appointment Scheduled 03/10/2025 8:30 AM CDT Appointment [facility] [address] [place] [address], [place] [address] Josue Guerra MD [address] [place] [address] Monitored, Cardiac Rehab Subj: Appointment Scheduled 03/10/2025 9:30 AM CDT Appointment [facility] [address] [place] [address], [place] [address] Josue Guerra MD [address] [place] [address] Subj: Appointment Scheduled 03/15/2025 8:30 AM CDT Appointment [facility] [address] [place] [address], [place] [address] Josue Guerra MD [address] [place] [address] Monitored, Cardiac Rehab Subj: Appointment Scheduled 03/15/2025 9:30 AM CDT Appointment [facility] [address] [place] [address] Josue Guerra MD [address] [place] [address] Subj: Appointment Scheduled Health Maintenance Due Date Last Done Comments Eye Exam 1974 CT Colonography 2001 Fecal Immunochemical DNA Test (FIT-DNA) 2001 Fecal Immunochemical Test (FIT) 2001 Colonoscopy 11/26/2019 11/25/2017, 01/19/2015 Influenza Vaccine (#1) 2025 , 05/24/2019, 04/16/2002, Additional history exists Hemoglobin A1C 03/12/2025 09/10/2024, 02/25, 12/31/2022, Additional history exists Asthma Control Test 03/17/2025 03/17/2024 Asthma Action Plan 03/24/2025 03/24/2024, 12/31/2022 COVID-19 Vaccine ( season) 2025 Postponed from 01/25/2024 (Patient Refused) Colorectal Cancer Screening 03/24/2025 Postponed from 2001 (Patient Refused) DTaP/Tdap/Td Vaccines (2 - Td or Tdap) 03/24/2025 08/06/2011 Postponed from 08/05/2021 (Patient Refused) Foot Exam 03/24/2025 03/24/2024, 03/24/2024 Medicare Annual Visit 03/24/2025 03/24/2024, 023 Pneumococcal Vaccine (50+ Years) (1 of 2 - PCV) 03/24/2025 Postponed from 10/07/1975 (Patient Refused) Respiratory Syncytial Virus (RSV) Vaccine (1 - Risk 60-74 years 1-dose series) 03/24/2025 Postponed fro m 2016 (Patient Refused) Renal Assessment 07/23/2025 07/23/2024 Lipids 09/10/2025 09/10/2024, 10/, 07/07/2023, Additional history exists Depression Screening 11/03/2025 11/03/2024, 11/04/19 25 Hepatitis A Vaccines Aged Out 08/06/2011, 12/05/19 10 No longer eligible based on patient's age to complete this topic Varicella Zoster Sequential Completed 10/25, 11/17/2017, 09/06/2017 HIB Vaccines Aged Out No longer eligi ble based on patient's age to complete this topic HPV Vaccines (No Doses Required) Completed Hepatitis B Vaccines Aged Out No long er eligible based on patient's age to complete this topic Hepatitis C Testing Discontinued Meningococcal B Vaccines Aged Out No longer eligible based on patient's age to complete this topic Meningococcal Vaccines Aged Out No lo nger eligible based on patient's age to complete [...] persistent asthma without complication (HCC) Atherosclerosis of inupiat coronary artery of inupiat heart with stable angina pectoris MARY (generalized anxiety disorder) Obstructive sleep apnea of adult PROTEIN/CREATININE RATIO, URINE Routine 07/23/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 Comment:Blood, Capil Blood CAPILLARY BLOOD / Unknown 11/30/2024 9:27 AM CDT 11/30/2024 9:39 AM CDT us Josue Guerra MD LAB POINT OF CA RE TEST DOCKED DEVICE UNSOLICITED RESULTS Final Result [facility] [address] [place] [address], [place] [phone] * COMPLETE BLOOD COUNT AND DIFFERENTIAL (11/10/2024 [...] - 49.0 % 11/10/2024 3:24 PM CDT [facility] % Monocytes 9.2 0.0 - 10.0 % 11/10/2024 3:24 PM CDT [facility] % Eosinophils 4.0 0.0 - 7.0 % 11/10/2024 3:24 PM CDT [facility] % Basophils 0.6 0.0 - 2.0 % 11/10/2024 3:24 PM CDT [facility] Abs Neutrophils 5.6 1.6 - 8.1 10(3)/uL 11/10/2024 3:24 PM CDT [facility] Abs Lymphocytes 2.7 0.9 - 3.5 10(3)/uL 11/10/2024 3:24 PM CDT [facility] Abs Monocytes 0.9 0.0 - 1.1 10(3)/uL 11/10/2024 3:24 PM CDT [facility] Abs Eosinophils 0.4 0.0 - 0.8 10(3)/uL 11/10/2024 3:24 PM CDT [facility] Abs Basophils 0.1 0.0 - 0.2 10(3)/uL 11/10/2024 3:24 PM CDT [facility] Blood VENOUS BLOOD / Unknown Venipuncture / Unknown 11/10/2024 2:56 PM CDT 11/10/2024 2:56 PM CDT us Cornelia Torres APRN,NREMT LAB HEMATOLOGY ORDERABLE S Final Result [facility] [address] [place] [address], [place] [phone] * (ABNORMAL) BASIC METABOLIC PANEL (11/10/2024 2:56 PM CDT) Only the most recent of3 resultswithin the time period is included. Sodium 145 136 - 146 mmol/L 11/10/2024 3:38 PM CDT [facility] Potassium 4.4 3.5 - 5.1 mmol/L 11/10/2024 3:38 PM CD[address] [facility] Chloride 109(H) 98 - 107 mmol/L 11/10/2024 3:38 PM CDT [facility] CO2 25 22 - 29 mmol/L 11/10/2024 3:38 PM CD[address] [facility] Creatinine 1.74(H) 0.72 - 1.25 mg/dL 11/10/2024 3:38 PM [address] [facility] Blood Urea Nitrogen 23.0(H) 10.0 - 20.0 mg/dL 11/10/2024 3:38 PM CDT [facility] Calcium, Total 9.2 8.4 - 10.2 mg/dL 11/10/2024 3:38 PM CDT [facility] Glucose 121(H) 70 - 100 mg/dL 11/10/2024 3:38 PM CD[address] [facility] eGFR 42(L) >=60 mL/min/1. 73m(2) 11/10/2024 3:38 PM CDT [facility] Comment:Calculation based on the Chronic Kidney Disease Epidemiology Collaboration (CKD-EPI) equation refit without adjustment for race. eCrCl (Rx) - Adults 48.4 mL/min 11/10/2024 3:38 PM CDT [facility] Blood VENOUS BLOOD / Unknown Venipuncture / Unknown 11/10/2024 2:56 PM CDT 11/10/2024 2:56 PM CDT Cornelia Torres APRN,NREMT LAB CHEMISTRY ORDERABLES Final Result [address] [address], [place] [phone] * CARDIAC RHYTHM STRIP (10/31/2024 7:18 AM CDT) Only the most recent of3 resultswithin the time period is included. 10/31/2024 7:18 AM CDT Narrative JESENIA - 10/31/2024 7:18 AM CDT HI 0.16 QRS 0.08 QT 0.40 Emiliano Esquivel MD,[facility] ECG Final Result Performing Organization Address [facility] Center/ZIP Co de Phone Number JESENIA * ECHOCARDIOGRAM TRANSTHORACIC ADULT WITH OR [...] metformin Study Info Indications Acute coronary syndrome (ACS)/[place], assess LV function - Procedure Components Complete two-dimensional, color flow Doppler and spectral Doppler transthoracic echocardiogram is performed with contrast, documented in JUL. Heart Rate: 77 Heart Rhythm: Regular Cut Off Man: Kezia Jose RDCS Ordering Physician: Sal Rascon MD Summary: * [...] AR Decel Time 1,729 ms AR Decel Yancey 194.39 cm/s2 AR PHT 502 ms RVOT/Pulmonic [...] Josue Guerra MD ECG Final R esult MUSE * (ABNORMAL) ACTIVATED CLOTTING TIME, POC (10/29/2024 9:01 PM CDT) [facility] Activated Time 329(H) 74 - 125 Sec 10/29/2024 11:12 PM CDT [facility] Blood ARTERIAL BLOOD / Unknown 10/29/2024 9:01 PM CDT 10/29/2024 11:12 PM CDT Sal Rascon MD LAB POINT OF CARE TE ST DOCKED DEVICE UNSOLICITED RESULTS Final Result Performing Organization Address [facility] de Phone Number [facility] [address] [place] [address], [place] [phone] * INVASIVE CARDIOLOGY PROCEDURE LOG (10/29/2024 8:41 [...] Name: Josue Guerra MD Title: Role: Diagnostic Foundry Technician Name: Ana Lilia Betancourt RN Title: RN Role: Nurse Name: Marge Arredondo RT Title: RT(R) Role: Replenishment Merchandising Associate Name: Jamie Echeverria RN PROVIDER RELATIONS Title: RN PROVIDER RELATIONS Role: Scrub Name: Trisha Stubbs RT Title: RT(R) Role: Monitor Name: Josue Guerra MD Title: Role: Rn Provider Relations Assisting Physician: No Railroad Signal Operator Type of Procedure Ultrasound guided radial access. Selective coronary angiography with left heart catheterization. PCI to the mid LAD. Access site hemostasis with radial band. Conclusions 1. Acutely occluded mid LAD status post PCI as below. Mild disease otherwise with patent circumflex stent. 2. Successful IVUS guided PCI to mid LAD with a 2.5 x 26mm [place] MARCIAL deployed at 16 bertha post dilated [...] length 24 mm. 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 Procedural Details - Mac-Lab Phase: Baseline. The listed assisting physician provided the knife operator. assistance in all aspects of the procedure.. Lab Results Checked. Pre-Procedure Pulses Checked. Re-evaluated for Sedation by RN. Encore 26 Advantage Kit. [employer] J Wire 260cm. DxTerity JR4.0 6fr. Runthrough [...] Sled Bag. IVUS.. Act: 329. IVUS.. Stent [place] Armando 2.50 x 26. Stent Inserted. Stent deployed [...] 40 minutes. This time represents personal, continuous, bmzj-oz-qxrn time. An independent trained observer was present [...] Baseline. The listed assisting physician provided the knife operator. assistance in all aspects of the procedure.. Lab Results Checked. Pre-Procedure Pulses Checked. Re-evaluated for Sedation by RN. Encore 26 Advantage Kit. [employer] J Wire 260cm. DxTerity JR4.0 6fr. Runthrough [...] Sled Bag. IVUS.. Act: 329. IVUS.. Stent [place] Armando 2.50 x 26. Stent Inserted. Stent deployed [...] 40 minutes. This time represents personal, continuous, wcvk-nj-lhjr time. An independent trained observer was present [...] Yes, all medications given per verbal order CSHA Frailty Scale: 6: Moderately Frail X-ray Summary Cumulative Air Kerma: 820.00 mGy Contrast Contrast: Omnipaque 350mg Amount: 70.0 ml Contrast: Contrast Waste Amount: 12.0 ml Report Signatures Finalized by Josue Guerra MD on 10/29/2024 09:30 PM Pressures Phase:Baseline AO : 125/82(82) @ 8:45:29 PM AO HR: 91 @ 8:45:29 PM us Sal Rascon MD CARDIAC CATHETERIZATION Final Result * (ABNORMAL) GLYCOSYLATED HEMOGLOBIN, A1C (09/10/2024 8:19 AM CDT) Hemoglobin A1c 6.2(H) <5.7 % 09/10/2024 8:37 AM CDT [facility] Estimated Average Glucose 131 mg/dL 09/10/2024 8:37 AM CDT [facility] Blood VENOUS BLOOD / Unknown Venipuncture / Unknown 09/10/2024 8:19 AM CDT 09/10/2024 8:28 AM CDT Cornelia Torres APRN,TONY LAB CHEMISTRY ORDERABLES Final Result [address] [address], [place] [phone] * (ABNORMAL) LIPID PANEL (09/10/2024 8:19 AM CDT) Cholesterol 158 <200 mg/dL 09/10/2024 10:21 AM CDT [facility] Triglycerides 265(H) 25 - 150 mg/dL 09/10/2024 10:21 AM CDT [facility] Cholesterol, LDL (Calculated) 75 0 - 159 mg/dL 09/10/2024 10:21 AM CDT [facility] Cholesterol, HDL 30(L) >40 mg/dL 09/11/19 25 10:21 AM CDT [facility] Cholesterol, vLDL 53 mg/dL 025 10:21 AM CDT [facility] Blood VENOUS BLOOD / Unknown Venipuncture / Unknown 09/10/2024 8:19 AM CDT 09/10/2024 9:55 AM CDT Cornelia Torres APRN,TONY LAB CHEMISTRY ORDERABLES Final Result Performing Organization Address City/[facility]/ZIP Co de Phone Number [address] [address], [place] [phone] * PROTEIN/CREATININE RATIO, URINE (07/23/2024 12:50 PM TEXTILE SCREEN MAKER) Protein, Urine 10.9 <=40.0 mg/dL 07/23/2024 1:24 PM TEXTILE SCREEN MAKER [facility] Comment:No reference range e stablished for urine test. Creatinine, Urine 84.1 mg/dL 07/23/2024 1:24 PM [facility] Comment: No reference range established for urine test. No reference range established for urine test. Protein/Creatini ne Ratio, Urine 0.1 ratio 07/23/2024 1:24 PM TEXTILE SCREEN MAKER [facility] Comment:No reference range e stablished for urine test. Urine SPOT URINE SPECIMEN / Unknown Non-blood Collection / Unknown 07/23/2024 12:50 PM TEXTILE SCREEN MAKER 07/23/2024 12:53 PM TEXTILE SCREEN MAKER us Cecilia Crenshaw MD LAB URINE O RDERABLES Final Result [facility] [address] [place] [address], * COLONOSCOPY (11/25/2017 7:39 AM CDT) 11/25/2017 7:39 AM CDT Narrative [facility] - 11/25/2017 8:37 AM CDT [facility] Patient Name: Ankur Cardenas Procedure Date: 11/25/2017 7:39 AM Date of : 1955 Admit Type: Outpatient Age: 62 Room: [facility] Gender: Male Note Status: Finalized Attending [...] and oxygen saturations were monitored continuously. The [id number] was introduced through the anus and advanced [...] 0 Note Initiated On: 11/25/2017 7:39 AM Armando Restrepo MD GI PROCEDURES Final Result [employer] 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 Relationship Specialty Start Date End Date Cornelia Torres, TECHNOLOGY TRAINER,NREMT [address] [place] [id number] PCP - General Nurse Practitioner Family 11/14/21 Jadon Pelletier MD 06/23/17 Armando Restrepo MD MA 06/23/17 Jadon Rossi MD [address] [place] [address] Internal Medicine Cardiovascular Disease 01/11/21 Patricia Babb APRN,NREMT [address] [place] [place] [address] Heart Failure Team Nurse Practitioner 03/13/21 Cecilia Crenshaw MD [address] [place] [address] Internal Medicine - Nephrology 07/23/24 Sal Rascon MD [address] [place] [address] Cardiology-Interventional 10/31/24 Additional Source Comments PLEASE NOTE: Replies to this message will not be received.[facility]
== END 2025-01-01 15:42 | disposition short-term general hospital (02) ==
LOC: ED 15:13
PROVIDERS: Emergency Provider Internal Medicine
DX: S25.102A Unspecified injury of left innominate or subclavian artery, initial encounter (principal); V54.5XXA Driver of pick-up truck or van injured in collision with heavy transport vehicle or bus in traffic accident, initial encounter
CPT/HCPCS: 36415; 70450; 71260; 72125; 74177; 80053; 85025; 99283; 99285; 99291; G0390; Q9967